=== PATIENT | female | born 1960 | race Caucasian/White ===

== ENCOUNTER → 2018-01-31 00:10 | Outpatient (CLI) | payer OTHER, SELFPAY ==
--- NOTE | 2018-01-31 16:07 | DI.REPORT_ITS ---
SYMPTOM/DIAGNOSIS: SCREENING, Z12.31 BILATERAL SCREENING MAMMOGRAM: Mammograms were interpreted according to the usual protocol including computer analysis with CAD system, tomosynthesis and C view imaging. Comparison is made with exams from 2009 through 2014. The breasts are composed of fatty density tissue, breast density Category A. There are no suspicious masses or suspicious microcalcifications. There has been no significant change. IMPRESSION: Category 1A, negative mammogram. Routine screening is recommended. SA ASSESSMENT OF FINDINGS: Negative. Category 1. Patient will receive a letter notifying them of these results. BI-RAD category A. The breasts are almost entirely fatty.
== END ==
PROVIDERS: PCP Family Medicine; Visit Provider Family Medicine
DX: Z12.31 Encounter for screening mammogram for malignant neoplasm of breast (principal)
CPT/HCPCS: 77063; 77067

== ENCOUNTER 2018-04-17 10:25 | Outpatient (CLI) | payer OTHER, SELFPAY ==
--- NOTE | 2018-04-17 10:14 | DI.RAD_ITS ---
SYMPTOM/DIAGNOSIS: SHOULDER PAIN BILATERAL RIGHT SHOULDER: The bony structures are normally mineralized. Mild to moderate degenerative changes involving the AC and glenohumeral joint are noted. There is a decrease in the normal acromiohumeral distance. SUMMARY: There are moderate degenerative changes. If clinically appropriate, an MR could be obtained to evaluate the possibility of a rotator cuff tear. LEFT SHOULDER: Mild glenohumeral and moderate AC joint DJD is demonstrated. Regions of sclerosis involving the greater tuberosity are identified. SUMMARY: Mild to moderate DJD left shoulder.
== END 2018-04-17 10:45 ==
PROVIDERS: PCP Family Medicine; Visit Provider Orthopaedic Surgery
DX: M25.511 Pain in right shoulder (principal); M25.512 Pain in left shoulder; M19.011 Primary osteoarthritis, right shoulder; M19.012 Primary osteoarthritis, left shoulder
CPT/HCPCS: 73030

== ENCOUNTER 2018-05-23 07:43 | Outpatient (CLI) | payer OTHER, SELFPAY ==
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
== END 2018-05-23 08:03 ==
PROVIDERS: PCP Family Medicine; Visit Provider Orthopaedic Surgery
DX: M19.012 Primary osteoarthritis, left shoulder (principal); M25.512 Pain in left shoulder; Z01.818 Encounter for other preprocedural examination
CPT/HCPCS: NC

== ENCOUNTER 2018-08-02 01:26 | Outpatient (CLI) | payer OTHER, SELFPAY ==
--- NOTE | 2018-08-02 14:58 | DI.MRI_ITS ---
SYMPTOM/DIAGNOSIS: AC JOINT DJD BILAT MRI RIGHT SHOULDER: Comparison is made with plain films dated 17 Apr 2018 Proton density and FS T2 axial and coronal, and T1 and FS T2 sagittal sequences were performed. There is prominent spurring at the AC joint with significant inferior projection. There is a full thickness tear with retraction of the supraspinatus tendon to the level of the glenoid. There is severe muscle atrophy, consistent with a chronic tear. There is also marked thinning of the infraspinatus tendon and severe infraspinatus muscle atrophy. The subscapularis and teres minor tendons appear intact. The upper long head of the biceps tendon is not well seen. The tendon is visible in the bicepital groove. There is some spurring at the greater and lesser tuberosities and a few small subchondral cysts. Degenerative changes are seen at the labrum. No definite focal labral tear is identified. There is a small amount of fluid in the subacromial, subdeltoid bursa and subcoracoid bursa. 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 Severe partial tear and severe muscle atrophy of the infraspinatus.
--- NOTE | 2018-08-02 14:58 | DI.MRI_ITS ---
SYMPTOM/DIAGNOSIS: AC JOINT DJD BILAT MRI LEFT SHOULDER: Comparison is made with plain films dated 17 Apr 2018 There are degenerative changes of the AC joint with inferior spurring. Some fluid is also seen within the AC joint. There is spurring at the undersurface and tip of the acromion. There is a full thickness tear of the supraspinatus tendon with retraction to the level of the acromion. There is moderate muscle atrophy, approximately 50%. The infraspinatus tendon shows some high signal distally. No definite full thickness tear is seen. There is no significant infraspinatus muscle atrophy. The subscapularis and teres minor tendons appear intact. There is thickening and some intermediate signal in the upper long head of the biceps tendon, consistent with tendinosis. There is a small joint effusion and some fluid in the subacromial subdeltoid bursa as well as subcoracoid bursa. Degenerative changes are seen at the glenoid as well as at the greater and lesser tuberosities. There are a few small subchondral cysts. IMPRESSION: Full thickness tear of the supraspinatus tendon with retraction and moderate muscle atrophy. Infraspinatus tendinosis. Upper long head of the biceps tendinosis.
== END 2018-08-02 01:46 ==
PROVIDERS: PCP Family Medicine; Visit Provider Orthopaedic Surgery
DX: M19.011 Primary osteoarthritis, right shoulder (principal); M75.81 Other shoulder lesions, right shoulder; M62.511 Muscle wasting and atrophy, not elsewhere classified, right shoulder; M19.012 Primary osteoarthritis, left shoulder; M75.82 Other shoulder lesions, left shoulder; M62.512 Muscle wasting and atrophy, not elsewhere classified, left shoulder
CPT/HCPCS: 73221

== ENCOUNTER 2018-08-15 12:08 | Day surgery (SDC) | payer OTHER, SELFPAY ==
[2018-08-15 12:35] VITALS: BP 142/72; PULSE 71; RESP 16; TEMP 36.5; O2SAT 97
[2018-08-15] MEDS: Lactated Ringers 1,000 ML 80 ML IV ×2 (12:45→14:45)
--- NOTE | 2018-08-15 14:26 | W.PM.DSUDISC ---
Discharge Plan Disposition Patient Disposition: HOME Condition: Good Discharge Details Reason For Visit: bilat djd a-c joint/Excision distal clavicle L Attending Provider: Teo Casillas Primary Care Provider: Nan Simmons Home Meds and New Rx's Prescriptions: New ibuprofen 800 mg tablet 800 mg PO TID Qty: 30 RF: 0 hydrocodone-acetaminophen 5-325 mg tablet 1 tab PO Q6H PRN (Reason: pain) Qty: 20 RF: 0 Continued escitalopram oxalate 20 mg tablet 20 mg PO DAILY Qty: 90 RF: 11 Fiber Choice (inulin-sorbitol) 1.5 GM tablet,chewable 3 tab PO DAILY PRNRF: 0 ascorbic acid (vitamin C) [Vitamin C] 1,000 MG tablet extended release 1,000 mg PO DAILY RF: 0 calcium carbonate [Calcium 500] 500 MG tablet 500 mg PO DAILY RF: 0 Vitamin D3 4,000 UNIT capsule 4,000 unit PO DAILY RF: 0 loratadine 10 MG tablet 10 mg PO DAILY Qty: 90 RF: 12 Turmeric Root Extract [Turmeric] 538 MG capsule 538 mg PO DAILY RF: 0 riboflavin (vitamin B2) [Vitamin B-2] 100 MG tablet 200 mg PO DAILY RF: 0 Discharge Instructions Additional Instructions: Sling for comfort. May take L arm out of sling as often and for as long as your discomfort allows. Apply cryocuff to L shoulder continuously overnite tonite. Tomorrow start to use 4 times/day for 1 hour each time. Discontinue sling as soon as your pain allows. Use L arm within limits of pain. May remove dressings, shower and get incision wet in 48 hours. Leave incision uncovered when it is dry and sealed. Follow up with in 7-10 days. Referrals: Teo Casillas MD [ [facility] STAFF PHYSICIAN] - (f/u 7-10 days.) Equipment/Supplies: Sling Activity:: Activity as Tolerated Remove Dressings/Wound Care:: 48 hours Shower/Bathe:: 48 hours Diet:: As Tolerated Discharge Orders Discharge Orders: Discharge Order (Routine); Ordered 08/15/18 Ordered By: Teo Casillas DS: Diagnosis Discharge Diagnosis (1) Acromioclavicular joint arthritis: Status: Chronic
[2018-08-15 14:58] VITALS: BP 126/54; PULSE 74; RESP 18; TEMP 36.3; O2SAT 93
[2018-08-15 15:03] VITALS: BP 131/59; PULSE 70; RESP 13; TEMP 36.3; O2SAT 94
[2018-08-15 15:08] VITALS: BP 123/55; PULSE 69; RESP 12; TEMP 36.3; O2SAT 94
[2018-08-15 15:23] VITALS: BP 135/63; PULSE 71; RESP 14; TEMP 36.6; O2SAT 94
[2018-08-15 15:52] VITALS: BP 130/72; PULSE 66; RESP 18; TEMP 35.9; O2SAT 95
[2018-08-15] MEDS: oxyCODONE-CR 10 MG TABCR PO (15:58)
--- NOTE | 2018-08-15 17:40 | ROE_ITS ---
DATE OF PROCEDURE: August 15, 2018 PREOPERATIVE DIAGNOSIS: DJD AC joint, left. POSTOPERATIVE DIAGNOSIS: DJC AC joint, left. PROCEDURE: Excision distal clavicle, left. SURGEON: Teo Casillas M.D. RADIOSONDE SPECIALIST: Neeraj Fine PA-C ANESTHESIA: General, Marie Carrillo CRNA INDICATIONS: This is a 58-year-old white female with bilateral shoulder pain. This pain has been pr esent for several months and interferes with activities and sleep. She has not responded to conserva tive treatment including injection and Physical Therapy. MRI scan has revealed bilateral full-thickn ess rotator cuff tears of the supraspinatus tendon. However, clinical examination shows no pain with rotator cuff resistance and good strength in her rotator cuff. She has 3+ tenderness over the AC natali int, confirming the AC joint as the source of the pain. It was felt that her pain could be alleviate d by excision of the distal clavicle to decompress the AC joint. I did not feel that there were any clinical indications for rotator cuff repair. The risks and complications of the procedure were expl ained to the patient in detail preoperatively. The plan is to excise the distal clavicle on the left and, when she is fully recovered, proceed with the same procedure on the right side if she is satisf ied. PROCEDURE: The patient was taken to the Operating Room on 08/15/18. She was placed supine on the ope rating table and a general anesthetic was administered. She was then placed in the castillo chair posi tion and the left shoulder was prepped and draped free in the usual sterile fashion. An incision mad e centered directly over the dorsum of the AC joint. The incision was about 3 inches in length. The incision was carried to the AC joint capsule. Subcutaneous veins were cauterized. A longitudinal i ncision was made on the dorsum of the AC joint capsule and the distal clavicle was subperiosteally ex posed. The distal centimeter of the clavicle was transected and excised. The resected end of the cl avicle was packed with bone wax. I then infiltrated the subacromial space and the periosteum and capsule of the AC joint with 0.5% Mar karlo with epinephrine solution. Absolute hemostasis was obtained with electrocautery. The AC joint capsule and periosteum over the distal clavicle were repaired with interrupted [id number] sutur es of #1 Vicryl suture material. The subcu was approximated with a few interrupted #2-0 Vicryl sutur es and a running subcuticular suture was used to approximate the skin edges, supplemented with Steri- Strips. Sterile dressings were applied and the left arm was placed in a sling. The patient's anesth esia was reversed without complication. Blood loss was 20 cc. The patient was discharged to the Rec overy Room in good condition. The patient was discharged home from the Day Surgery Unit when fully recovered from her general anest hesia. She was given instructions to use the sling for comfort. She may leave her left arm out of t he sling as often and for as long as discomfort allows. She may remove her dressings, shower and get her incision wet after 48 hours. She can leave the incision uncovered when it is dry and sealed. S he is to use a Cryo/Cuff to the left shoulder continuously overnight tonight and then tomorrow start to use the Cryo/Cuff 4 times a day for an hour each time. She can wean herself out of the sling as s oon as discomfort allows. She may then use her left arm as much as discomfort allows. She is given a prescription for inflammation of ibuprofen 800 mg p.o. t.i.d. for 10 days and a prescription for pa in of hydrocodone/APAP 5 mg/325 mg, 1 tablet q.6h. p.r.n. for breakthrough pain. She will follow up in Dr. Casillas's office in 7 to 10 days.
== END 2018-08-15 16:25 | disposition home or self-care (01) ==
PROVIDERS: PCP Family Medicine; Visit Provider Orthopaedic Surgery
PROC: (CPT 23120; principal; 2018-08-15 13:45)
DX: M19.012 Primary osteoarthritis, left shoulder (principal)
CPT/HCPCS: 23120; J0690; J1100; J1885; J2250; J2405; J3010; L3650

== ENCOUNTER 2018-09-10 08:46 | Day surgery (SDC) | payer OTHER, SELFPAY ==
[2018-09-10 09:18] VITALS: BP 146/76; PULSE 88; RESP 16; TEMP 36.6; O2SAT 94
[2018-09-10] MEDS: Lactated Ringers 1,000 ML 80 ML IV ×2 (09:30→11:03)
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
--- NOTE | 2018-09-10 13:21 | PDOC.DSDIS_ITS ---
Discharge Plan Disposition Patient Disposition: HOME Condition: Good Discharge Details Reason For Visit: excision distal clavicle, R rotator cuff repair. Attending Provider: Teo Casillas Primary Care Provider: Nan Simmons Home Meds and New Rx's Prescriptions: Continued escitalopram oxalate 20 mg tablet 20 mg PO DAILY Qty: 90 RF: 11 Fiber Choice (inulin-sorbitol) 1.5 GM tablet,chewable 3 tab PO DAILY PRNRF: 0 ascorbic acid (vitamin C) [Vitamin C] 1,000 MG tablet extended release 1,000 mg PO DAILY RF: 0 calcium carbonate [Calcium 500] 500 MG tablet 500 mg PO DAILY RF: 0 Vitamin D3 4,000 UNIT capsule 4,000 unit PO DAILY RF: 0 loratadine 10 MG tablet 10 mg PO DAILY Qty: 90 RF: 12 Turmeric Root Extract [Turmeric] 538 MG capsule 538 mg PO DAILY RF: 0 riboflavin (vitamin B2) [Vitamin B-2] 100 MG tablet 200 mg PO DAILY RF: 0 hydrocodone-acetaminophen 5-325 mg tablet 1 tab PO Q6H PRN (Reason: pain) Qty: 20 RF: 0 ibuprofen 800 mg tablet 800 mg PO TID PRNRF: 0 Discharge Instructions Additional Instructions: Sling for comfort. May take R arm out of sling as much as your discomfort allows. Apply cryocuff to R shoulder continuously overnite tonite. Tomorrow, start to use cryocuff 4 times/day for 1 hour each time. May remove dressings, shower, and get incision wet after 72 hours. Leave incision uncovered when it is dry and sealed. Take ibuprofen 800 mg 3 times/day for 10 days. USE HYDROCODONE for breakthru pain, if needed. Follow up with in 2 weeks. Referrals: Teo Casillas MD [ [facility] STAFF PHYSICIAN] - (f/u in 2 weeks.) Equipment/Supplies: Sling Activity:: Activity as Tolerated Remove Dressings/Wound Care:: 72 hours Shower/Bathe:: 72 hours Diet:: As Tolerated Discharge Orders Discharge Orders: Discharge Order (Routine); Ordered 09/10/18 Ordered By: Teo Casillas DS: Diagnosis Discharge Diagnosis (1) Acromioclavicular joint arthritis: Status: Chronic (2) Torn rotator cuff: Status: Acute
[2018-09-10 13:40] VITALS: BP 111/56; PULSE 64; RESP 15; TEMP 36.8; O2SAT 96
[2018-09-10 13:45] VITALS: BP 110/51; PULSE 66; RESP 15; TEMP 36.8; O2SAT 96
[2018-09-10 13:50] VITALS: BP 111/46; PULSE 64; RESP 14; TEMP 36.8; O2SAT 95
[2018-09-10 14:05] VITALS: BP 110/41; PULSE 66; RESP 16; TEMP 36.8; O2SAT 95
[2018-09-10] MEDS: oxyCODONE-CR 10 MG TABCR PO (14:44)
[2018-09-10 14:46] VITALS: BP 123/58; PULSE 67; RESP 16; TEMP 36.2; O2SAT 93
--- NOTE | 2018-09-12 18:40 | ROE_ITS ---
DATE OF PROCEDURE: September 10, 2018 PREOPERATIVE DIAGNOSIS: #1. DJD AC joint, right #2. Torn rotator cuff, right. POSTOPERATIVE DIAGNOSIS: Same. PROCEDURE: #1. Excision of distal clavicle, right. #2. Repair of full-thickness tear of rotator cuff, right. SURGEON: Teo Casillas M.D. [employer]ING MACHINE OPERATOR: Alma Garcia PA-C ANESTHESIA: General. INDICATIONS: This is a 58-year-old white female with known bilateral rotator cuff tears by MRI. She has been experiencing severe pain arising from both AC joints. Even though she has a rotator cuff t ear on MRI, clinically her shoulder exam did not show significant disability because of the rotator c uff tear. On the left side, she has recently undergone excision of her distal clavicle without a rot ator cuff repair. She has done well with this and is functioning well enough, with good pain relief, that she wants to have the same procedure on the right side. The risks and complications of the pro cedure were explained to the patient in detail preoperatively. PROCEDURE: The patient was taken to the Operating Room on 09/10/18. She was given a general anesthet ic and was placed in the castillo chair position. The right shoulder was prepped and draped free in th e usual sterile fashion. An incision was made on the superior aspect of the right shoulder centered over the AC joint. The incision was about 3 inches in length. The incision was carried down to the AC joint capsule. The AC joint capsule was longitudinally incised, the distal clavicle was subperios teally exposed, and the distal centimeter of the clavicle was transected and removed. There were eduardo e osteophytes on the undersurface of the acromion that were noted on preoperative x-rays. As I excis ed these osteophytes, I realized that I was looking at the bare humeral head. This was because she h ad a full-thickness tear of her supraspinatus that had retracted about 2 cm medially. Because of the amount of retraction and the tear that was present I felt that this was an opportunity to attempt to repair the rotator cuff at this time, despite the fact that she was only having mild symptoms from h er rotator cuff. I think that the literature clearly shows that this tear could be expected to progr ess. I was hopeful I could stop the progression of the tear and alleviate her pain. I then proceeded to detach the anterior deltoid and incise the deltoid muscle for a distance of about 2 cm lateral to the tip of the acromion. This provided enough exposure to visualize the tear. The biceps tendon was intact. Traction sutures were placed on #1 Vicryl suture material in the leading e dge of the rotator cuff and then a Demarco elevator was used to free up the rotator cuff and mobilize it laterally. I prepared the original footprint of the supraspinatus for cementing with a rongeur and a rasp to get fresh bleeding bone. I then did a two-row repair. The medial row was two suture ancho rs of 5.0 diameter. These were then passed through the rotator cuff tendon in a horizontal mattress fashion and tied, securing the rotator cuff to the bone of the proximal humerus. Then using the Vers prince anchor, I took the uncut ends of the sutures comprising the medial row and, using the Versalok a nchors, provided a second row of repair more laterally. I was able to bring the arm to the side foll owing the repair without pulling out the sutures. The wound margins were then infiltrated with 0.5% Marcaine with epinephrine solution. The resected end of the clavicle was packed with bone wax to altman it bleeding. Three drill holes were placed in the anterior acromion and then sutures of #2 FiberWire were passed t hrough the full thickness of deltoid muscle anteriorly and through the drill holes in a gistec-aq-wyc ht fashion. These sutures were tied, securing the anterior deltoid to the acromion. The AC joint ca psule and periosteum of the distal clavicle were approximated with interrupted aqbmgf-qb-vxtim suture s of #1 Vicryl suture material. The lateral deltoid muscle split was approximated with a couple of i nterrupted #1 Vicryl sutures. I then oversewed the more superficial deltoid fascia to the periosteum over the acromion with interrupted cupclk-ay-aigkw sutures of #1 Vicryl suture material to reinforce the repair to bone. The subcu was approximated with interrupted #2-0 Vicryl sutures and the skin ed ges were approximated with a running subcuticular suture of #4-0 Vicryl supplemented with Steri-Strip s. The wound was dressed with Xeroform gauze, sterile gauze 4x4s, half an ABD pad, and taped with fo am elastic tape. The right arm was placed in a sling. Estimated blood loss was <100 cc. The patien t tolerated the procedure well. Her anesthesia was reversed without complication. She was discharge d to the Recovery Room in good condition. The patient was later discharged home from the Day Surgery Unit when fully recovered from her general anesthesia. She was given instructions to use the sling for comfort. She may take her arm out of h er sling to perform movements only within the limits of pain. She may remove her dressings, shower a nd get her incision wet after 72 hours. She can leave the incision uncovered when it is dry and seal ed. She is to use a Cryo/Cuff to the right shoulder continuously overnight tonight. Tomorrow she wi ll start to use a Cryo/Cuff four times a day for an hour each time. She should follow up with Dr. Wood dobbins in two weeks. She is given a prescription for inflammation of ibuprofen 800 mg p.o. t.i.d. for 10 days and a prescription for pain of hydrocodone/APAP 5 mg/325 mg, 1 tablet every 6 hours.
== END 2018-09-10 15:23 | disposition home or self-care (01) ==
PROVIDERS: PCP Family Medicine; Visit Provider Orthopaedic Surgery
PROC: (CPT 23120; principal; 2018-09-10 10:00)
PROC: (CPT 23412; 2018-09-10 10:00)
DX: M19.011 Primary osteoarthritis, right shoulder (principal); M75.121 Complete rotator cuff tear or rupture of right shoulder, not specified as traumatic
CPT/HCPCS: 23412; 23120; C1713; NC; J0690; J1100; J1885; J2370; J2405

== ENCOUNTER 2019-01-16 13:53 | Outpatient (CLI) | payer OTHER, SELFPAY ==
--- NOTE | 2019-01-16 11:15 | DI.RAD_ITS ---
SYMPTOMS/DIAGNOSIS: LT KNEE PAIN LEFT KNEE: Weight bearing AP and lateral images are provided. The bony structures are normally mineralized. The joint spaces intact. There is no evidence of a joint effusion.
== END 2019-01-16 14:13 ==
PROVIDERS: PCP Family Medicine; Visit Provider Physician Assistant
DX: M25.562 Pain in left knee (principal)
CPT/HCPCS: 73560

== ENCOUNTER 2019-02-22 01:04 | Outpatient (CLI) | payer OTHER, SELFPAY ==
--- NOTE | 2019-02-22 10:35 | DI.MRI_ITS ---
SYMPTOM/DIAGNOSIS: RESTRICTED RANGE OF MOTION, FOLLOWING ROTATOR CUFF SURGERY, Z98.890 RIGHT SHOULDER MRI: Routine noncontrast examination was performed. Comparison is made with 08/02/18. There is artifact in the shoulder from prior rotator cuff repair surgery. The biceps tendon appears to be retracted to the level of the glenohumeral joint. The infraspinatus tendon also appears to be retracted to the level of the glenohumeral joint. The teres minor and subscapularis tendons appear intact. There is marked fatty atrophy involving the supraspinatus and infraspinatus muscles. The teres minor and subscapularis muscles are well maintained with normal signal and size. There is superior subluxation of the humeral head with marked narrowing of the acromiohumeral interval. No definite evidence to suggest an occult fracture or avascular necrosis is seen. In the bone, there is artifact from the orthopedic hardware obscuring portions of the acromioclavicular joint and the lateral humeral head. The articular cartilage at the glenohumeral joint appears well maintained. No abnormal focal soft tissue mass or fluid collection is appreciated. IMPRESSION: Findings suspicious for tears involving the infraspinatus and supraspinatus tendons. Marked fatty atrophy involving the infraspinatus and supraspinatus tendon. Limited examination due to extensive artifact from the patient's prior surgery.
== END 2019-02-22 01:24 ==
PROVIDERS: PCP Family Medicine; Visit Provider Orthopaedic Surgery
DX: Z98.890 Other specified postprocedural states (principal); M25.811 Other specified joint disorders, right shoulder; M75.101 Unspecified rotator cuff tear or rupture of right shoulder, not specified as traumatic; M62.511 Muscle wasting and atrophy, not elsewhere classified, right shoulder
CPT/HCPCS: 73221

== ENCOUNTER 2019-03-11 00:28 | Outpatient (CLI) | payer OTHER, SELFPAY ==
--- NOTE | 2019-03-11 15:00 | DI.MAMMO_ITS ---
SYMPTOM/DIAGNOSIS: SCREENING Z12.31 MAMMOGRAM: 03/11 Mammograms were interpreted according to the usual protocol including computer analysis with CAD system, tomosynthesis and C view imaging. The breasts are of moderate density with fairly symmetrical distribution of fibroglandular tissue. No dominant mass or clumped microcalcifications identified in either breast. The current examination is compared with previous examinations including January 2018 and there has been no gross interval change in appearance in comparison with the previous studies. CONCLUSION: No specific evidence of malignancy at this time. Routine screening examinations are suggested at yearly intervals in this age group according to the ACS/ACR guidelines. Category 1, breast density category B. MQSA ASSESSMENT OF FINDINGS: Negative. Category 1. Patient will receive a letter notifying them of these results. BI-RADS category B. There are scattered areas of fibroglandular density.
== END 2019-03-11 00:48 ==
PROVIDERS: PCP Family Medicine; Visit Provider Family Medicine
DX: Z12.31 Encounter for screening mammogram for malignant neoplasm of breast (principal)
CPT/HCPCS: 77063; 77067

== ENCOUNTER 2019-03-28 01:07 | Outpatient (CLI) | payer OTHER, SELFPAY ==
--- NOTE | 2019-03-28 13:44 | DI.DEXA_ITS ---
EXAM: XR DEXA BONE DENSITY W/WO SHANIA INDICATION: Screening for osteoporosis Z13.820. COMPARISON: Prior examination of July 2007 TECHNIQUE: 2D digital imaging was performed. FINDINGS: DEXA scan was performed according to the usual protocol. Findings for lumbar spine scanning are a T- score of -1.0. Prior examination of July 2007 showed lumbar T-score of -0.9. Findings for left h ip scanning are a T-score of 0.1 with left femoral neck T-score of -1.9. Previous examination of Jul showed left hip T-score of 1.3. Left forearm scanning shows T-score of -0.8. Lateral vertebral scanogram shows no evidence of vertebral compression fracture. IMPRESSION: Findings consistent with osteopenia according to the WHO criteria
== END 2019-03-28 01:27 ==
PROVIDERS: PCP Family Medicine; Visit Provider Family Medicine
DX: Z13.820 Encounter for screening for osteoporosis (principal); M85.88 Other specified disorders of bone density and structure, other site
CPT/HCPCS: 77080

== ENCOUNTER 2019-11-18 12:13 | Outpatient (CLI) | payer OTHER, SELFPAY ==
[2019-11-19 17:52] LABS: COVID-19 RT-PCR Result NEGATIVE (Negative)
== END 2019-11-18 12:33 ==
PROVIDERS: PCP Family Medicine; Visit Provider Family Medicine
DX: R06.02 Shortness of breath (principal); R68.83 Chills (without fever)
CPT/HCPCS: U0003

== ENCOUNTER 2020-01-02 02:27 | Outpatient (CLI) | payer OTHER, SELFPAY ==
[2020-01-02 13:03] LABS: HCT 46.4 % (36.0-46.0); HGB 15.3 g/dL (12.0-15.5); Mean Corpuscular Hemoglobin 30.6 pg (27.0-33.0); Mean Corpuscular Volume 92.8 fL (80-95); Mean Platelet Volume 10.9 fL (8.0-11.0); Platelet Count 349 x1000/uL (130-400); RBC Distribution Width 13.3 % (11.7-14.6); White Blood Cell Count 7.34 k/cumm (4.4-10.8)
[2020-01-02 13:09] LABS: Hemoglobin A1C 5.7 % (3.8-5.6)
[2020-01-02 13:52] LABS: ALT 19 U/L (14-59); AST 14 U/L (15-37); Albumin 3.8 g/dL (3.4-5.0); Alkaline Phosphatase 106 U/L (46-116); Anion Gap 9.9 mmol/L (3-11); BUN 21 mg/dL (7-18); Bilirubin, Total 0.6 mg/dL (0.2-1.0); CO2 25.1 mmol/L (21.0-32.0); Calcium 9.5 mg/dL (8.5-10.1); Chloride 105 mmol/L (98-107); Estimated GFR 56.37 (mL/min/1.73m2); Glucose 106 mg/dL (74-106); Potassium 4.7 mmol/L (3.5-5.1); Sodium 140 mmol/L (136-145); TSH (W/Ref FT4) 3.25 uIU/mL (0.36-3.74); Total Protein 6.7 g/dL (6.4-8.2)
[2020-01-02 13:55] LABS: Iron 86 ug/dL (50-170)
== END 2020-01-02 02:47 ==
PROVIDERS: PCP Family Medicine; Visit Provider Family Medicine
DX: Z00.00 Encounter for general adult medical examination without abnormal findings (principal); Z11.9 Encounter for screening for infectious and parasitic diseases, unspecified; R53.83 Other fatigue
CPT/HCPCS: 36415; 80053; 85027; 83036; 83540; 84443

== ENCOUNTER 2020-01-09 00:22 | Outpatient (CLI) | payer OTHER, SELFPAY ==
--- NOTE | 2020-01-09 14:01 | DI.CTLCSR_ITS ---
EXAM: CT CHEST LUNG CANCER SCREEN CLINICAL HISTORY: The patient reportedly has a History of Smoking 30 pack years and presently smokes or has quit the past 15 years. TECHNIQUE: Imaging Protocol: Axial computed tomography images with coronal and sagittal reformatted images were created and reviewed. Low-dose screening protocol. COMPARISON: CR CHEST 2 VIEWS PA,LAT from 04/09/2013 FINDINGS: There is a right shoulder prosthesis. The heart size is normal. There are coronary artery and aorti c calcifications. The aorta is normal in diameter. There is no adenopathy, infiltrate, pleural or p ericardial effusion. There is mild paraseptal emphysema in the upper lobes. There is no bronchiecta sis or mucus plugging. No noncalcified pulmonary nodules are seen. There are degenerative changes i n the thoracic spine. No lytic or blastic lesions are seen. IMPRESSION: No evidence of mass or pulmonary nodules. Lung RADS Cat 1 - Negative: No nodules and definitely benign nodules Lung-RADS 1.0 CATEGORIES: Category 0 - Prior chest CT exam(s) being located for comparison. Category 1 - Annual screening in 12 months. No nodules or definitely benign nodules. Category 2 - Annual screening in 12 months. Benign appearance. Nodules with low likelihood of becomin g active cancer. Category 3 - 6-month follow-up. Probably benign. Short-term follow-up suggested. Nodules with low lik elihood of becoming active cancer. Category 4A - 3-month follow-up and CT/PET if >8 mm in size. Suspicious finding. Findings which requi re additional testing. Category 4B - Findings which require additional testing and tissue sampling. Suspicious finding. C Added to Any of the Above - History of prior lung cancer screening. S Added to Any of the Above - Significant unexpected other finding. RADIATION DOSE DELIVERED: 81.98mGy.cm Total DLP DATA REPOSITORY: All CT scans at this facility are submitted to the National Radiology Data Registry (NRDR) Dose Index Registry (DIR) with the [employer] (A[employer]). RADIATION OPTIMIZATION: All CT scans at this facility use at least one of these dose optimization te chniques: automated exposure control; mA and/or kV adjustment per patient size (includes targeted exa ms where dose is matched to clinical indication); or iterative reconstruction.
== END 2020-01-09 00:42 ==
PROVIDERS: PCP Family Medicine; Visit Provider Family Medicine
DX: Z12.2 Encounter for screening for malignant neoplasm of respiratory organs (principal); F17.210 Nicotine dependence, cigarettes, uncomplicated; J43.8 Other emphysema
CPT/HCPCS: G0297

== ENCOUNTER 2020-08-19 19:05 | Outpatient (REF) | payer OTHER, SELFPAY ==
[2020-08-20 15:04] LABS: COVID-19 RT-PCR UVMMC Result Negative (Negative)
== END 2020-08-19 19:06 | disposition home or self-care (01) ==
LOC: LBN 19:05
PROVIDERS: PCP Family Medicine; Visit Provider Nurse Practitioner Family
DX: Z20.828 Contact with and (suspected) exposure to other viral communicable diseases (principal)
CPT/HCPCS: U0003

== ENCOUNTER 2020-08-23 16:25 | Emergency (ER) | payer OTHER, SELFPAY ==
[2020-08-23] VITALS (39 sets, daily range): BP systolic 124–221; BP diastolic 70–164; PULSE 72–161; RESP 2–35; TEMP 36.4–36.6; O2SAT 68–100
--- NOTE | 2020-08-23 16:15 | RT.EKG_ITS ---
APPROVED REPORT Exam: Resting ECG Patient Location: E HR:128 bpm ECG Measurements Heart Rate 128 AXIS MT 95 P 127 QRSd 182 QRS 152 QT 388 T 4 QTc 570 Conclusion Sinus tachycardia...rate> 99 Ventricular premature complex...V complex w/ short R-R interval ST elevation secondary to LVH...Multiple VCG criteria. New LBBB, possible STEMI. No compared to previous 2018. I have reviewed and interpreted ECG and agree with software generated interpretation.
--- NOTE | 2020-08-23 16:30 | DI.RAD_ITS ---
EXAM: XR PORTABLE CHEST AP CLINICAL HISTORY: chest tightness, sob, r/o acute disease. TECHNIQUE: 2D digital imaging was performed. COMPARISON: CR CHEST 2 VIEWS PA,LAT from 11/20/2017 FINDINGS: Heart size is normal. The mediastinum is not widened. There is interstitial and patchy infiltrate in both lung talley, slightly more prominent on the right side right lower lobe. No pleural effusions. Reversed right shoulder prosthesis is noted. There is also been decompression AC joint surgery bilat erally. IMPRESSION: Interstitial and partially confluent infiltrates both lungs. Both infectious etiology and pulmonary edema are considerations. There are no obvious pleural effusions. Sign rib DATA REPOSITORY: RADIATION DOSE DELIVERED:
[2020-08-23] MEDS: Albuterol/Ipratropium 3 ML UPD VIAL (16:33)
[2020-08-23] MEDS: Normal Saline 250 ML IV (16:34)
[2020-08-23 16:38] LABS: Abs Immature Grans 0.08 10^3/uL (0.0-0.06); HCT 49.1 % (36.0-46.0); HGB 15.3 g/dL (11.2-15.7); MCH 30.5 pg (27.0-33.0); MCHC 31.2 % (32.0-36.0); Nucleated RBC 0 %; Platelet Count 371 10^3/uL (130-400); RBC 5.01 10^6/uL (3.93-5.22); RDW 12.4 % (11.7-14.6); RDW-SD 44.4 fL; WBC 14.02 10^3/uL (4.4-10.8)
[2020-08-23] MEDS: LORazepam 2 MG/ML VIAL 1 MG IVP ×2 (16:43→16:55)
--- NOTE | 2020-08-23 16:45 | W.ED.GENAD ---
Discharge Plan Disposition Patient Disposition: [facility] Condition: Critical Discharge Details Clinical Impression: STEMI (ST elevation myocardial infarction), COPD with acute exacerbation, Acute CHF (congestive heart failure) Primary Care Provider: Nan Simmons ED Provider: Cierra Langley Home Meds and New Rx's Prescriptions: No Action bupropion HCl 300 mg tablet extended release 24 hr 300 mg PO QAM Qty: 90 RF: 4 fluticasone propionate 50 mcg/actuation spray,suspension 2 spray DEWAYNE DAILY Qty: 47.4 RF: 5 omeprazole magnesium [Prilosec OTC] 20 mg tablet,delayed release (DR/EC) 20 mg PO DAILY Qty: 30 RF: 0 Fiber Choice (inulin-sorbitol) 1.5 GM tablet,chewable 3 tab PO DAILY PRNRF: 0 Vitamin C 1,000 MG tablet extended release 1,000 mg PO DAILY RF: 0 calcium carbonate [Calcium 500] 500 MG tablet 500 mg PO DAILY RF: 0 Vitamin D3 4,000 UNIT capsule 4,000 unit PO DAILY RF: 0 loratadine 10 MG tablet 10 mg PO DAILY Qty: 90 RF: 12 Turmeric Root Extract [Turmeric] 538 MG capsule 538 mg PO DAILY RF: 0 riboflavin (vitamin B2) [Vitamin B-2] 100 MG tablet 200 mg PO DAILY RF: 0 hydrochlorothiazide 12.5 mg tablet 12.5 mg PO QAM Qty: 90 RF: 4 ibuprofen 800 mg tablet 800 mg PO TID PRNRF: 0 Medical Decision Making 1626 -- 60-year-old female with a history of obesity, GERD, hyperlipidemia, COPD, tobacco smoker presents for chest tightness that started 2 hours ago while making a sandwich. EMS called the ED with a STEMI alert with potential anterior ST elevation on EKG. Heart rate 140s, unable to obtain a blood pressure at 40/20s per EMS. They had difficulty obtaining a history from patient. Upon arrival to ED, patient moaning and restless, unable to answer questions. Blood pressure hypertensive at 155/124. Pulse 130s to 150s. Respirations 20-30s. Temp 97 5. O2 sat 80s to 90s on room air. She has scattered wheezing and coarse breath sounds throughout. Rate 130s and rhythm sinus on the monitor. EKG noted a rate of 128, sinus with ST elevation in new left bundle branch block. EKG pushed stat to [facility] cardiology for possible STEMI. Presentation possibly more consistent with an acute COPD versus CHF exacerbation. Also consider STEMI. Patient given 4 baby aspirin in route. Will give 300 mg Plavix p.o., heparin bolus and drip, nitro drip. We will also give duo nebs and Solu-Medrol IV and Ativan to help patient relax. Case discussed with [facility] cardiology who does not call STEMI at this time. Agrees with plan for STEMI treatment. Accepts patient for transfer to the [facility]. Accepting physician Dr. Clay. 1700 -- Patient still remaining restless. A dose of morphine given and she has been able to tolerate BiPAP. Oxygen saturation 100%. Heart rate 130s. 1730 --patient tolerating BiPAP well. At the same time another critical patient into the ED requiring intubation. Labs reviewed. White blood cell count 14. pH 7.1. PCO2 60s. Result in computer pending. Troponin negative. Portable chest x-ray notes findings possibly consistent with pulmonary edema. Will give 40 mg Lasix IV. 1745 --patient tolerating BiPAP well after morphine. No local critical care medic available. Patient to go by [facility]. Chest x-ray noted findings consistent with possible multifocal pneumonia versus pulmonary edema. There was no report of fever cough or recent travel. We will hold on antibiotics at this time. 1830 --patient doing well on BiPAP. She appears much more comfortable and relaxed. Heart rate 110s. [facility] here to transfer patient. Medical Records Medical records reviewed: Yes I reviewed the patient's medical records. Imaging Data Radiologic Study: Radiologist's impression: XR Chest, 1 View Exam date and time: 08/23/2020 4:34 PM Age: 60 years old Clinical indication: Chest pain TECHNIQUE: Imaging protocol: XR of the chest Views: 1 view. COMPARISON: CT CHEST LUNG CANCER SCREEN 01/09/2020 1:57 PM FINDINGS: Lungs: Interstitium is prominent than before . There is mild perihilar congestion. There are patchy opacities in the bilateral lungs, more pronounced in the mid to lower lungs right greater than left. Pleural spaces: Unremarkable. No pleural effusion. No pneumothorax. Heart/Mediastinum: Cardiac silhouette is borderline in size. Bones/joints: There is no acute fracture. There is right shoulder arthroplasty. IMPRESSION: Patchy opacities in the bilateral lower lungs, right greater than left might reflect multifocal pneumonia. Prominent interstitium could be due to pulmonary edema or infiltrates. Lab Data Lab results reviewed: Yes I reviewed the patient's lab results. Labs: Laboratory Tests Range/Units 08/23/20 08/23/20 08/23/20 16:35 16:35 16:35 WBC (4.4-10.8) 10^3/uL 14.02 H RBC (3.93-5.22) 10^6/uL 5.01 Hgb (11.2-15.7) g/dL 15.3 Hct (36.0-46.0) % 49.1 H MCV (80-95) fL 98.0 H MCH (27.0-33.0) pg 30.5 MCHC (32.0-36.0) % 31.2 L RDW (11.7-14.6) % 12.4 Plt Count (130-400) 10^3/uL 371 MPV (8.0-11.0) fL 11.0 Immature Gran % 0.0 Neutrophils % 48.0 Lymphocytes % 36.0 Atypical Lymphs % 5 Monocytes % 7.0 Eosinophils % 4.0 Basophils % 0.0 Nucleated RBC % % 0 Absolute Neutrophils (1.2-6.7) 10^3/uL 6.73 H Absolute Lymphocytes (1.2-3.4) 10^3/uL 5.75 H Absolute Monocytes (0.1-0.8) 10^3/uL 0.98 H Absolute Eosinophils (0.0-0.7) 10^3/uL 0.56 Absolute Basophils (0.0-0.2) 10^3/uL 0.00 RBC Morphology Normal PT (9.3-11.0) sec 10.1 INR (0.9-1.1) 1.0 APTT (21.0-27.5) sec 24.2 Sodium (136-145) mmol/L 139 Potassium (3.5-5.1) mmol/L 4.1 Chloride (98-107) mmol/L 100 Carbon Dioxide (21.0-32.0) mmol/L 22.6 Anion Gap (3-11) mmol/L 16.4 H BUN (7-18) mg/dL 23 H Creatinine (0.55-1.02) mg/dL 1.7 H Estimated GFR/1.73 m2 (mL/min/1.73m2) 30.45 Glucose (74-106) mg/dL 332 H Calcium (8.5-10.1) mg/dL 9.4 Magnesium (1.8-2.4) mg/dL 2.8 H Total Bilirubin (0.2-1.0) mg/dL 0.5 AST (15-37) U/L 15 ALT (14-59) U/L 21 Alkaline Phosphatase (46-116) U/L 120 H Troponin I (<0.06) ng/mL 0.05 Total Protein (6.4-8.2) g/dL 7.9 Albumin (3.4-5.0) g/dL 3.7 ECG Data Attestation: I personally reviewed and interpreted this ECG (s) as follows: Interpretation: #1 -- Rate of 128, sinus, ST elevation secondary to LVH and anterior leads. New left bundle branch block. This is new compared to previous EKG. #2 -- Rate of 116, sinus, ST elevation secondary to LVH, LBBB. HPI General Mode of arrival: ambulatory. Date/Time Provider Initiated Documentation: 08/23/20 16:29. Limitations to Documentation: no limitations. Information obtained by: patient. HPI Narrative: Patient is a 60-year-old female with a history of GERD, hyperlipidemia, COPD, tobacco smoker presents with chest tightness that started 2 hours ago while making a sandwich at home. EMS called to report an anterior infarct noted on EKG and calling a STEMI alert. Unable to obtain a history from patient on arrival as she is moaning and unable to sit still. Related Data Home Medications Medication Instructions Recorded Confirmed Fiber Choice (inulin-sorbitol) 3 tab PO DAILY PRN tab.chew 03/15/13 08/23/20 Vitamin C 1,000 mg PO DAILY 09/29/15 08/23/20 Vitamin D3 4,000 unit PO DAILY 09/29/15 08/23/20 calcium carbonate [Calcium 500] 500 mg PO DAILY 09/29/15 08/23/20 loratadine 10 mg PO DAILY #90 tab-cap 07/12/16 08/23/20 Turmeric Root Extract [Turmeric] 538 mg PO DAILY 12/04/17 08/23/20 riboflavin (vitamin B2) [Vitamin 200 mg PO DAILY 01/30/18 08/23/20 B-2] ibuprofen 800 mg PO TID PRN 09/07/18 08/23/20 bupropion HCl 300 mg 24 hr tablet, 300 mg PO QAM #90 tab 12/31/19 08/23/20 extended release fluticasone propionate 50 2 spray DEWAYNE DAILY #47.4 gm 12/31/19 08/23/20 mcg/actuation nasal spray,suspension hydrochlorothiazide 12.5 mg tablet 12.5 mg PO QAM #90 tab 01/09/20 08/23/20 omeprazole magnesium 20 mg 20 mg PO DAILY #30 tab 08/19/20 08/23/20 tablet,delayed release Previous Rx's Medication Instructions Recorded bupropion HCl 300 mg 24 hr tablet, 300 mg PO QAM #90 tab 12/31/19 extended release fluticasone propionate 50 2 spray DEWAYNE DAILY #47.4 gm 12/31/19 mcg/actuation nasal spray,suspension hydrochlorothiazide 12.5 mg tablet 12.5 mg PO QAM #90 tab 01/09/20 omeprazole magnesium 20 mg 20 mg PO DAILY #30 tab 08/19/20 tablet,delayed release Allergies Allergy/AdvReac Type Severity Reaction Status Date / Time nickel Allergy Verified 08/23/20 17:28 zinc Allergy Skin Rash Verified 08/23/20 17:28 milk AdvReac Unknown Verified 08/23/20 17:28 IVORY SOAP Allergy Unknown RASH Uncoded 08/23/20 17:28 Metals Allergy Rash Uncoded 08/23/20 17:28 General Stated Complaint: Chest Pain MANOLO: 1 Review of Systems All systems reviewed & are unremarkable except as noted in HPI and below Constitutional Constitutional: Reports as per HPI, Denies chills and Denies fever(s) Eyes Eyes: Denies blurry vision ENT Ears, Nose, Mouth, and Throat: Denies dizziness, Denies sore throat and Denies throat swelling Cardiovascular Cardiovascular: Reports chest pain and Reports dyspnea Respiratory Respiratory: Denies cough and Reports dyspnea Gastrointestinal Gastrointestinal: Denies abdominal pain, Denies diarrhea and Denies vomiting Genitourinary Genitourinary: Denies hematuria and Denies dysuria Musculoskeletal Musculoskeletal: Denies back pain and Denies numbness Integumentary/Breasts Skin/Breast: Denies lesions and Denies rash Neurologic Neurologic: Denies dizziness, Denies localized weakness and Denies numbness Allergic/Immunologic Allergic/Immunologic: Denies throat swelling [facility] Medical History (Updated 08/23/20 @ 18:05 by Cierra Langley DO) Acromioclavicular joint arthritis Actinic keratosis (09/29/15) Adhesive capsulitis of right shoulder Right shoulder required shoulder manipulation Allergic rhinitis Cataract (10/13/14) Extraction of cataracts of both eyes done in 2014 Diverticulosis of colon without diverticulitis Gastroesophageal reflux disease (12/03/08) GERD Generalized 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 ALVARADO; EXCISION OF LEFT DISTAL CLAVICLE-kb SKIN EXCISION removal of birthmark Status post arthroscopy of right knee ~2008 Tonsillectomy and adenoidectomy (~1959) Family History (Updated 01/01/20 @ 16:41 by Adri Moulton) Mother Essential hypertension Heart disease PACEMAKER Hyperlipidemia Hypothyroidism Father Diabetes Essential hypertension Heart disease Hyperlipidemia Myocardial infarction Stroke Sister Depression Heart disease Hyperlipidemia Brother Diabetes Depression Heart disease Hyperlipidemia Maternal Grandfather Essential hypertension Heart disease Hyperlipidemia Paternal Grandfather Lung cancer Maternal Grandmother Essential hypertension Heart disease Hyperlipidemia Paternal Grandmother Diabetes Social History (Updated 01/01/20 @ 16:39 by Adri Moulton) Smoking/Tobacco Use Status: Current every day Tobacco Type: cigarettes Smoking packs per day: 0.5 Smoking cigarettes per day: 10.0 Years smoked: 30 Smoking pack-years: 15.00 Tobacco: How many years used: 40 Quit status: considering quitting Second Hand Exposure: Yes Smoking risk assessment performed?: Yes Alcohol Intake: current Alcohol Intake frequency: a few times a week Alcohol type: hard liquor Drug use: Never Substance use type: former substance user Date of last use: 1971 Counseling given: No Counseling provided: none Caregiver/Support person: No Household members: family Housing: house Communication Needs: None Do you need help understanding health information?: Never 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 Pets and animals: No Sexually active: No Do you think of yourself as: straight/heterosexual Current gender identity: female What is your relationship status?: never How often do you talk on the phone with friends or family?: once per week How often do you get together with friends or relatives?: decline to answer How often do you attend jain or muslim services?: decline to answer Do you belong to any clubs or organized social groups?: no Panel score (0-1 are the most socially isolated patients): 0 What type of physical activity do you participate in: walking and other Details: PT Duration: 15-30 minutes/day Frequency: 3-4 times per week Sandy/Judaism: Taoist Special sandy needs: No Seatbelt use: always Helmet use: No Drive intox or ride w/intox electric train driver: No Do you feel safe in your relationship?: Yes Exam Const General: cooperative, no acute distress and ill appearing chronically Nutritional Appearance: obese morbidly obese Orientation: alert and awake HENMT Head: normal to inspection Face and sinus: normal facial exam Mouth: other (white discharge in mouth) Eyes General: appearance normal, both eyes and all related structures EOM: EOM intact bilaterally Neck Neck: normal visual inspection and No submandibular swelling Lymphatic: no lymphadenopathy noted Chest Chest: normal inspection of the chest and no tenderness Resp Effort & Inspection: normal respiratory effort and able to speak in complete sentences Auscultation: wheezes scattered wheezes and other (coarse breath sounds throughout) Cardio Rate: tachycardic Rhythm: regular rhythm GI Inspection: normal to inspection and obesity Palpation: soft, not firm, not rigid and nontender Auscultation: normal bowel sounds Skin General skin exam: mottling (chest and back) Neuro General: patient alert, patient awake, patient oriented x3 and moves all extremities Cognition: normal cognition Speech: speech normal Motor: muscle tone normal throughout Sensory Exam: no sensory deficits noted Extrem General: normal to inspection, full ROM, capillary refill normal, no calf tenderness bilaterally and no edema Psych Appearance: grossly normal Mental Status: mental status grossly normal Speech and Movement: speech and movement normal Affect: normal affect Course Vital Signs Vital signs: Vital Signs Temperature 97.5 F L 08/23/20 16:26 Pulse 135 H 08/23/20 16:26 Respiratory Rate 22 08/23/20 16:26 Blood Pressure 155/124 H 08/23/20 16:26 Pulse Oximetry 77 L 08/23/20 16:26 Temperature 97.5 F L 08/23/20 16:26 Pulse 135 H 08/23/20 16:26 Respiratory Rate 22 08/23/20 16:26 Blood Pressure 155/124 H 08/23/20 16:26 Blood Pressure Position Sitting 08/23/20 16:26 Pulse Oximetry 77 L 08/23/20 16:26 Oxygen Delivery Method Room Air 08/23/20 16:26 Oxygen Flow Rate 0 08/23/20 16:26 Pain Level 6 08/23/20 16:26 Critical Care Time Critical Care Time Critical Care Time: Yes Total Critical Care Time: 75 Attestation: I spent 75 minutes of critical care time with this patient. This does not include time spent on separately reported billable procedures.
[2020-08-23] MEDS: methylPREDNISolone SUCC 125 MG VIAL IVP (16:53)
[2020-08-23 17:02] LABS: PTT Activated 24.2 sec (21.0-27.5); Prothrombin Time 10.1 sec (9.3-11.0)
[2020-08-23 17:05] LABS: Absolute Eosinophil Count 0.56 10^3/uL (0.0-0.7); Absolute Lymphocyte Count 5.75 10^3/uL (1.2-3.4); Absolute Monocyte Count 0.98 10^3/uL (0.1-0.8); Absolute Neutrophil Count 6.73 10^3/uL (1.2-6.7); Atypical Lymphocytes % 5; Diff Comment Manual Differential; RBC Morphology Normal
[2020-08-23 17:08] LABS: ALT 21 U/L (14-59); AST 15 U/L (15-37); Albumin 3.7 g/dL (3.4-5.0); Alkaline Phosphatase 120 U/L (46-116); Anion Gap 16.4 mmol/L (3-11); BUN 23 mg/dL (7-18); Bilirubin, Total 0.5 mg/dL (0.2-1.0); CO2 22.6 mmol/L (21.0-32.0); CREATININE 1.7 mg/dL (0.55-1.02); Calcium 9.4 mg/dL (8.5-10.1); Chloride 100 mmol/L (98-107); Estimated GFR 30.45 (mL/min/1.73m2); Glucose 332 mg/dL (74-106); Magnesium 2.8 mg/dL (1.8-2.4); Potassium 4.1 mmol/L (3.5-5.1); Sodium 139 mmol/L (136-145); Total Protein 7.9 g/dL (6.4-8.2); Troponin I 0.05 ng/mL (<0.06)
[2020-08-23] MEDS: Albuterol 2.5 MG/3 ML INH SOLN VIAL (17:15)
--- NOTE | 2020-08-23 17:26 | NUR.NOTE ---
pt has been extremely restles and pushing all forms of Fi02 away from her face, she iwas talking and grunting loudlyNursing Note:
--- NOTE | 2020-08-23 18:00 | RT.EKG_ITS ---
APPROVED REPORT Exam: Resting ECG Patient Location: E HR:116 bpm ECG Measurements Heart Rate 116 AXIS CA 47 P 240 QRSd 174 QRS -15 QT 464 T 132 QTc 643 Conclusion Sinus or ectopic atrial tachycardia...P axis (-45,135), rate> 99 Atrial premature complex...SV complex w/ short R-R interval Left bundle branch block...QRSd>120, broad/notched R ST elevation secondary to IVCD...Multiple VCG criteria I have reviewed and interpreted ECG and agree with software generated interpretation.
--- NOTE | 2020-08-23 18:01 | NUR.NOTE ---
Spoke with pt mother Velvet in parking lot. Aware pt is being transferred to [facility] via [facility]. Reports pt had respiratory testing last week, had a covid swab done prior to testing, negative, with no symptoms or exposures since.
[2020-08-23] MEDS: Ondansetron 4 MG/2 ML VIAL IVP (18:13)
[2020-08-23] MEDS: Furosemide 40 MG/4 ML VIAL IVP (18:14)
[2020-08-23] MEDS: Clopidogrel 300 MG TAB PO (18:17)
--- NOTE | 2020-08-23 18:19 | DI.VRAD_ITS ---
PROCEDURE INFORMATION: Exam: XR Chest, 1 View Exam date and time: 08/23/2020 4:34 PM Age: 60 years old Clinical indication: Chest pain TECHNIQUE: Imaging protocol: XR of the chest Views: 1 view. COMPARISON: CT CHEST LUNG CANCER SCREEN 01/09/2020 1:57 PM FINDINGS: Lungs: Interstitium is prominent than before . There is mild perihilar congestion. There are patchy opacities in the bilateral lungs, more pronounced in the mid to lower lungs right greater than left. Pleural spaces: Unremarkable. No pleural effusion. No pneumothorax. Heart/Mediastinum: Cardiac silhouette is borderline in size. Bones/joints: There is no acute fracture. There is right shoulder arthroplasty. IMPRESSION: Patchy opacities in the bilateral lower lungs, right greater than left might reflect multifocal pneumonia. Prominent interstitium could be due to pulmonary edema or infiltrates. Dictated and Authenticated by: Tong James MD. Ordering:ZHANNA Norton MD
[2020-08-23 19:00] LABS: FIO2L 8 L; Site Left Radial
[2020-08-23 19:02] LABS: BE -8 mmol/L (-2-3); HCO3 21 mmol/L (22-26); pO2 70 mmHg (80-105); sO2 89 % (95-98); tCO2 20 mmol/L (23-27)
--- NOTE | 2020-08-23 19:54 | RESPIRATORY ---
Pt came in via [facility] in respiratory distress and complaining of chest pain. Audible whz heard, pt is anxious and barely able to tolerate neb done with a face mask. Will not keep bipap mask on at all and is on 8L nc. w/sp02 @ 88, RR @ 30. ABG has critical results and has ordered meds to help pt relax and tolerate bipap. With medication bipap is on 12/11 with nebs being ran in-line, pt looks comfortable and sp02 not 98%. [facility] en route to transfer
[2020-08-24 12:18] LABS: pH 7.15 (7.35-7.45)
[2020-08-24 12:19] LABS: pCO2 60 mmHg (35-45)
== END 2020-08-23 18:40 | disposition short-term general hospital (02) ==
PROVIDERS: Emergency Provider Physician Assistant; PCP Family Medicine
DX: I21.3 ST elevation (STEMI) myocardial infarction of unspecified site (principal); J44.1 Chronic obstructive pulmonary disease with (acute) exacerbation; F17.210 Nicotine dependence, cigarettes, uncomplicated; I50.9 Heart failure, unspecified
CPT/HCPCS: 51702; 80053; 82805; 93005; 94640; 96365; 96366; 96374; 96375; 96376; 99291; 36600; 71045; 83735; 84484; 85025; 85610; 85730; 93010; J1940; J2060; J2405; J2930; J7613; J7620

== ENCOUNTER 2020-09-05 13:02 | Inpatient (IN) | payer OTHER, SELFPAY ==
[2020-09-05] VITALS (134 sets, daily range): BP systolic 91–182; BP diastolic 45–114; PULSE 50–84; RESP 10–26; TEMP 36.1–36.6; O2SAT 90–100
--- NOTE | 2020-09-05 13:00 | RT.EKG_ITS ---
APPROVED REPORT Exam: Resting ECG Patient Location: E HR:70 bpm ECG Measurements Heart Rate 70 AXIS OK 178 P 71 QRSd 114 QRS 60 QT 384 T 137 QTc 415 Conclusion Sinus rhythm. Probable LVH with secondary repol abnrm. Inv T wave I and aVL
--- NOTE | 2020-09-05 13:15 | DI.RAD_ITS ---
EXAM: XR PORTABLE CHEST AP CLINICAL HISTORY: chest pain TECHNIQUE: 2D digital imaging was performed. COMPARISON: CR,XR XR PORTABLE CHEST AP from 08/23/2020 FINDINGS: MEDIASTINUM: Normal. HEART: Normal. PULMONARY VASCULATURE: Normal. LUNGS: Clear. PLEURAL SPACE: No pleural effusion or pneumothorax. BONE:Within normal limits for the patient's age. Status post right shoulder replacement. OTHER FINDINGS:Normal. IMPRESSION: No acute pulmonary findings. DATA REPOSITORY: RADIATION DOSE DELIVERED:
--- NOTE | 2020-09-05 13:20 | W.ED.GENAD ---
Discharge Plan Disposition Patient Disposition: [facility] INPATIENT Condition: Stable Discharge Details Clinical Impression: Non-ST elevation MA (NSTEMI) Admit Date/Time: 09/05/20 15:59 Admit Provider: Jorge Euceda Attending Provider: Jorge Euceda Primary Care Provider: Nan Simmons ED Provider: Teo Alaniz Medical Decision Making 60-year-old female history of coronary artery disease. She was seen in the emergency department on August 23 where she had chest pain, fluid overload, new left bundle branch block pattern on EKG and was transferred to [facility]. She underwent stent placement to left circumflex on August 31 and was discharged home on September 01. She states she has been doing well, taking her medications as prescribed, and at 11 AM this morning developed 4 out of 10 anterior chest pressure similar to previous. Patient states she took her morning medications at approximately 11:30 AM. She notes approximately 8 pound weight gain. She arrives to the ER slightly hypertensive, speaking in full sentences, with a reassuring exam. Today's initial EKG shows a resolution of the previously noted left bundle branch block. Differential diagnosis includes angina, in-stent stenosis, acute coronary syndrome, pericarditis. Patient IV access established, screening labs obtained including troponin and BNP. She is referred for portable chest x-ray. Patient given additional 162 mg of aspirin, topical nitroglycerin paste. With this she has near complete resolution of her discomfort. Laboratories note reassuring chemistries, creatinine 1.5, troponin I 0166, BNP 7173. CBC unremarkable. Chest x-ray without acute findings. Given the patient's weight gain, known ejection fraction of approximate 25%, and elevated BNP I did elect to give her 20 mg of IV Lasix. I discussed the case with Dr. Elizabeth of [facility] cardiology. He reviewed the patient's recent admission and recommended that she be medically managed including heparin drip, gentle diuresis, consideration of outpatient diuretic. Following 40 mg of Lasix patient had approximately 1200+ cc of urine output and felt better. Repeat Troponin obtained and slightly decreased at 0.61. Per plan I discussed with Dr. Elizabeth, will consider admission to [facility] for further management. HPI General Mode of arrival: wheelchair. Date/Time Provider Initiated Documentation: 09/05/20 13:02. Limitations to Documentation: no limitations. Information obtained by: patient. History of Present Illness 60 year old F presents to the emergency department with the chief complaint of Chest pain, described as moderate and similar to prior episodes, Quality is described as dull and constant, and is localized to the chest. Patient reports no radiation. Patient started experiencing this hour(s) other things that improve symptom(s), (Nitroglycerin x3 at home) No exacerbating factors reported . Patient notes shortness of breath; denies fever/chills and syncope. Patient did receive the following treatments prior to arrival, other (81 mg aspirin, sublingual nitroglycerin x3) Related Data Home Medications Medication Instructions Recorded Confirmed Fiber Choice (inulin-sorbitol) 3 tab PO DAILY PRN tab.chew 03/15/13 09/05/20 Vitamin C 1,000 mg PO DAILY 09/29/15 09/05/20 Vitamin D3 4,000 unit PO DAILY 09/29/15 09/05/20 calcium carbonate [Calcium 500] 500 mg PO DAILY 09/29/15 09/05/20 loratadine 10 mg PO DAILY #90 tab-cap 07/12/16 09/05/20 Turmeric Root Extract [Turmeric] 538 mg PO DAILY 12/04/17 09/05/20 riboflavin (vitamin B2) [Vitamin 200 mg PO DAILY 01/30/18 09/05/20 B-2] ibuprofen 800 mg PO TID PRN 09/07/18 09/05/20 bupropion HCl 300 mg 24 hr tablet, 300 mg PO QAM #90 tab 12/31/19 09/05/20 extended release fluticasone propionate 50 2 spray DEWAYNE DAILY #47.4 gm 12/31/19 09/05/20 mcg/actuation nasal spray,suspension omeprazole magnesium 20 mg 20 mg PO DAILY #30 tab 08/19/20 09/05/20 tablet,delayed release aspirin 81 mg tablet,delayed 81 mg PO DAILY 09/03/20 09/05/20 release atorvastatin 80 mg tablet 80 mg PO DAILY 09/03/20 09/05/20 carvedilol 25 mg tablet 25 mg PO BID 09/03/20 09/05/20 clopidogrel 75 mg tablet 75 mg PO DAILY 09/03/20 09/05/20 isosorbide mononitrate 30 mg 30 mg PO DAILY 09/03/20 09/05/20 tablet,extended release 24 hr nicotine 7 mg/24 hr daily 1 patch TRANSDERMAL Q24H 09/03/20 09/05/20 transdermal patch nitroglycerin 0.4 mg sublingual 0.4 mg SUBLINGUAL Q5M PRN 09/03/20 09/05/20 tablet Previous Rx's Medication Instructions Recorded bupropion HCl 300 mg 24 hr tablet, 300 mg PO QAM #90 tab 12/31/19 extended release fluticasone propionate 50 2 spray DEWAYNE DAILY #47.4 gm 12/31/19 mcg/actuation nasal spray,suspension omeprazole magnesium 20 mg 20 mg PO DAILY #30 tab 08/19/20 tablet,delayed release Allergies Allergy/AdvReac Type Severity Reaction Status Date / Time nickel Allergy Verified 09/05/20 13:09 zinc Allergy Skin Rash Verified 09/05/20 13:09 milk AdvReac Unknown Verified 09/05/20 13:09 IVORY SOAP Allergy Unknown RASH Uncoded 09/05/20 13:09 Metals Allergy Rash Uncoded 09/05/20 13:09 General Stated Complaint: Chest Pain MANOLO: 2 Review of Systems Narrative: 6 systems reviewed and otherwise negative. Patient states she has had an 8 pound weight gain and feels her breathing is congested. [facility] Medical History (Updated 09/05/20 @ 16:28 by Teo Alaniz MD) Acromioclavicular joint arthritis Actinic keratosis (09/29/15) Adhesive capsulitis of right shoulder Right shoulder required shoulder manipulation Allergic rhinitis Cataract (10/13/14) Extraction of cataracts of both eyes done in 2014 Diverticulosis of colon without diverticulitis Gastroesophageal reflux disease (12/03/08) GERD Generalized 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 ALVARADO; EXCISION OF LEFT DISTAL CLAVICLE-kb SKIN EXCISION removal of birthmark Status post arthroscopy of right knee ~2008 Tonsillectomy and adenoidectomy (~1959) Family History Mother Essential hypertension Heart disease PACEMAKER Hyperlipidemia Hypothyroidism Father Diabetes Essential hypertension Heart disease Hyperlipidemia Myocardial infarction Stroke Sister Depression Heart disease Hyperlipidemia Brother Diabetes Depression Heart disease Hyperlipidemia Maternal Grandfather Essential hypertension Heart disease Hyperlipidemia Paternal Grandfather Lung cancer Maternal Grandmother Essential hypertension Heart disease Hyperlipidemia Paternal Grandmother Diabetes Social History (Updated 01/01/20 @ 16:39 by Adri Moulton) Smoking/Tobacco Use Status: Current every day Tobacco Type: cigarettes Smoking packs per day: 0.5 Smoking cigarettes per day: 10.0 Years smoked: 30 Smoking pack-years: 15.00 Tobacco: How many years used: 40 Quit status: considering quitting Second Hand Exposure: Yes Smoking risk assessment performed?: Yes Alcohol Intake: current Alcohol Intake frequency: a few times a week Alcohol type: hard liquor Drug use: Never Substance use type: former substance user Date of last use: 1971 Counseling given: No Counseling provided: none Caregiver/Support person: No Household members: family Housing: house Communication Needs: None Do you need help understanding health information?: Never current occupation: [employer] works in the [employer] Pets and animals: No Sexually active: No Do you think of yourself as: straight/heterosexual Current gender identity: female What is your relationship status?: never How often do you talk on the phone with friends or family?: once per week How often do you get together with friends or relatives?: decline to answer How often do you attend yazidi or latter-day services?: decline to answer Do you belong to any clubs or organized social groups?: no Panel score (0-1 are the most socially isolated patients): 0 What type of physical activity do you participate in: walking and other Details: PT Duration: 15-30 minutes/day Frequency: 3-4 times per week Sandy/Druze: Denominational Special sandy needs: No Seatbelt use: always Helmet use: No 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 Pleasant, well groomed, interactive. HEAD: Normocephalic, atraumatic ENT: Mucous membranes moist, oropharynx unremarkable, External ear exam unremarkable EYES: PERRL, EOMI NECK: Full ROM, no ANTONIO, no menigismus CHEST/RESP: Nontender, clear to auscultation bilateral, no wheeze/rhonchi/rales CARDIOVASCULAR: RRR, no murmur, rub hermelindo. 2+ Rad pulse bilateral ABDOMEN: Soft, nontender, no mass. +Bowel sounds EXT: Full ROM, trace bilateral pretibial edema, no rash Neuro: Grossly normal neurologic exam, conversant, interactive. Psych: Speech fluent, thoughts congruent, affect normal Course Vital Signs Vital signs: Vital Signs Temperature 36.6 C 09/05/20 13:05 Pulse 78 09/05/20 13:05 Respiratory Rate 20 09/05/20 13:05 Blood Pressure 178/106 H 09/05/20 13:05 Pulse Oximetry 96 09/05/20 13:05 Temperature 36.6 C 09/05/20 13:05 Temperature Source Temporal Artery Scan 09/05/20 13:05 Pulse 78 09/05/20 13:05 Respiratory Rate 20 09/05/20 13:05 Blood Pressure 178/106 H 09/05/20 13:05 Blood Pressure Position Supine 09/05/20 13:05 Pulse Oximetry 96 09/05/20 13:05 Oxygen Delivery Method Room Air 09/05/20 13:05 Oxygen Flow Rate 0 09/05/20 13:05 Pain Level 5 09/05/20 13:05
[2020-09-05] MEDS: Aspirin 81 MG CHEW 162 MG PO (13:25)
[2020-09-05] MEDS: nitroGLYcerin 2% 1 INCH/1 GM PKT TP ×2 (13:26→20:13)
[2020-09-05 13:28] LABS: Abs Immature Grans 0.02 10^3/uL (0.0-0.06); Absolute Basophil Count 0.05 10^3/uL (0.0-0.2); Absolute Eosinophil Count 0.13 10^3/uL (0.0-0.7); Absolute Lymphocyte Count 1.41 10^3/uL (1.2-3.4); Absolute Monocyte Count 0.73 10^3/uL (0.1-0.8); Absolute Neutrophil Count 5.63 10^3/uL (1.2-6.7); Basophils % 0.6; Eosinophils % 1.6; HCT 36.6 % (36.0-46.0); HGB 11.9 g/dL (11.2-15.7); Immature Grans % 0.3; Lymphocytes % 17.7; MCH 30.7 pg (27.0-33.0); MCHC 32.5 % (32.0-36.0); MCV 94.6 fL (80-95); MPV 11.2 fL (8.0-11.0); Monocytes % 9.2; Neutrophils % 70.6; Nucleated RBC 0 %; Platelet Count 272 10^3/uL (130-400); RBC 3.87 10^6/uL (3.93-5.22); RDW 12.4 % (11.7-14.6); RDW-SD 42.6 fL; WBC 7.97 10^3/uL (4.4-10.8)
[2020-09-05 13:40] LABS: PTT Activated 22.1 sec (21.0-27.5); Prothrombin Time 10.3 sec (9.3-11.0)
[2020-09-05 13:47] LABS: NT-proBNP 7173 pg/mL (<300)
[2020-09-05 13:48] LABS: ALT 38 U/L (14-59); AST 27 U/L (15-37); Albumin 3.2 g/dL (3.4-5.0); Alkaline Phosphatase 118 U/L (46-116); Anion Gap 7.5 mmol/L (3-11); BUN 18 mg/dL (7-18); Bilirubin, Total 0.5 mg/dL (0.2-1.0); CO2 30.5 mmol/L (21.0-32.0); CREATININE 1.5 mg/dL (0.55-1.02); Calcium 9.1 mg/dL (8.5-10.1); Chloride 106 mmol/L (98-107); Estimated GFR 35.19 (mL/min/1.73m2); Glucose 118 mg/dL (74-106); Magnesium 2.3 mg/dL (1.8-2.4); Potassium 4.3 mmol/L (3.5-5.1); Sodium 144 mmol/L (136-145); Total Protein 6.9 g/dL (6.4-8.2)
[2020-09-05 13:51] LABS: Troponin I 0.66 ng/mL (<0.06)
--- NOTE | 2020-09-05 13:55 | DI.VRAD_ITS ---
PROCEDURE INFORMATION: Exam: XR Chest Exam date and time: 09/05/2020 1:20 PM Age: 60 years old Clinical indication: Patient HX: Chest pain, recent cardio ecent TECHNIQUE: Imaging protocol: XR of the chest Views: 1 view. COMPARISON: CR XR PORTABLE CHEST AP 08/23/2020 5:40 PM FINDINGS: Lungs: Unremarkable. No consolidation. Pleural spaces: Unremarkable. No pleural effusion. No pneumothorax. Heart/Mediastinum: Unremarkable. No cardiomegaly. Bones/joints: Right total shoulder arthroplasty IMPRESSION: No acute process Dictated and Authenticated by: Shanthi Parikh MD. Ordering:CAITLYN Bruce MD
[2020-09-05] MEDS: Furosemide 40 MG/4 ML VIAL IVP (14:05)
--- NOTE | 2020-09-05 15:00 | RT.EKG_ITS ---
APPROVED REPORT Exam: Resting ECG Patient Location: E HR:56 bpm ECG Measurements Heart Rate 56 AXIS VT 160 P 60 QRSd 120 QRS 49 QT 434 T 119 QTc 418 Conclusion Sinus bradycardia. Probable LVH with secondary repol abnrm t wave inversion I/aVL
[2020-09-05 15:33] LABS: Troponin I 0.61 ng/mL (<0.06)
--- NOTE | 2020-09-05 16:22 | NUR.NOTE ---
[phone] Umm Null
--- NOTE | 2020-09-05 17:10 | W.PM.HP.N ---
Date of service: 09/05/20 Time of Service: 17:11 Assessment and Plan Assessment and plan (1) Acute CHF (congestive heart failure): Status: Acute Assessment and plan: Acute congestive heart failure in setting of ischemic cardiomyopathy. Of note echocardiogram from August 24, 2020 demonstrated mildly dilated left ventricle with global left ventricular systolic function that was reduced with an estimated ejection fraction 25% by Park's biplane method. That time RV size and function was normal. Patient had mild mitral regurgitation. Present time her acute congestive heart failure appears to be related to the fluid accumulation due to resuscitation for her acute kidney injury during her recent hospitalization in addition to her underlying ischemic cardiomyopathy. She never was sent home on diuretics when she left [facility] out of concern that they wanted complete recovery of her renal function before restarting her valsartan and furosemide. Present time is not clear that she has had a second acute ischemic event although she does have elevated troponins but they are less now than what they were a week ago. Nevertheless because she presented with chest tightness and dyspnea and elevated troponin she will be treated for ischemia with heparin drip for 48 hours while we diurese her and trend out her troponin levels which are already starting to decline. We will get a follow-up echocardiogram on Monday morning. I performed a [id number] ultrasound echocardiogram but feel that the images were inadequate to clarify her LV function. I did get a decent parasternal short axis at the mid cavity the papillary muscle level and overall LV function only appears to be mildly impaired with hypokinesis of the inferolateral wall consistent with her inferior infarct and left circumflex lesion. However it did not get decent apical four-chamber views. I think a formal echo would be more helpful. For her renal function remained stable overnight she should be started on low-dose valsartan and we can convert her from IV furosemide to oral diuretics. Once we are sure that her renal function is stable she should be considered for SGLT2 inhibitor. Qualifiers: Heart failure type: systolic Qualified Code(s): I50.21 - Acute systolic (congestive) heart failure (2) Non-ST elevation ID (NSTEMI): Status: Acute Assessment and plan: Continue aspirin and Plavix and heparin drip. We will keep her on heparin drip for 48 hours. (3) Ischemic cardiomyopathy: Status: Acute Assessment and plan: As above History of Present Illness History of Present Illness Chief Complaint: Dyspnea, chest pain Narrative: 60-year-old recent former smoker with a history of hypertension, hyperlipidemia, obesity, GERD who sustained ST elevation myocardial infarction August 23, 2020 when she presented with acute shortness of breath and chest pressure associated with new onset left bundle branch block. She was subsequently transferred from [facility] emergency room to [facility] after being started on heparin and given a loading dose of Plavix and aspirin and started on a nitroglycerin drip. Upon her initial presentation she had pulmonary edema and received Lasix and morphine as well. Subsequently had a prolonged stay at [facility] from August 23, 2020 through September 01, 2020. Please see the area discharge summary for details. In summary her hospitalization was punctuated by acute kidney injury after 2 cardiac catheterizations as well as nonsustained ventricular tachycardia and development of an ischemic cardiomyopathy. She initially underwent cardiac catheterization on August 24, 2020 where she was found to have 95% mid vessel disease of her left circumflex with collaterals from the right coronary artery system she had nonhemodynamically significant stenosis of her left main as well as her LAD and RCA. At that time it was decided to treat her medically however when she had ongoing chest discomfort along with an uptrending troponin levels as well as elevated creatinine her Lasix and valsartan were held and she was given hydration until her renal function recovered sufficiently that she was able to undergo repeat cardiac catheterization August 31, 2020 at which time she underwent PCI stenting of her mid segment of her left circumflex. Post cardiac catheterization her creatinine was down to 1.56 at the time of discharge and her BUN was 27. She was not sent home on valsartan nor on diuretics. Since that time she has developed increased dyspnea over the last 24 hours along with chest tightness and a feeling like she cannot get enough air. Says it feels very similar to when she had her heart attack. She also believes that she has had a 8 pound weight gain since she was discharged from [facility] although she says this is based on different scales between the scales at [facility] and her home scales yesterday. She has not been weighing herself daily since she was discharged. Evaluation emergency department included a portable chest x-ray which reportedly showed her lungs to be unremarkable with no pleural effusion and no cardiomegaly. Nevertheless her proBNP was elevated at 7100. Initial troponin I was 0.66 and has been trending downward since then to its current level of 0.54. Of note her troponin level at [facility] peaked at 1.0 and her last level was 0.79 on August 29, 2020. Serial EKGs taken the emergency department today showed sinus bradycardia rate of 56 bpm with a nonspecific interventricular conduction delay with a QRS duration 120 ms and ECG evidence of LVH with secondary repolarization changes with ST depression and T wave inversion in limb leads I and aVL as well as V4 through V6. Small Q waves are seen in the inferior leads II, III and aVF. Inferior Q waves are new since her ECG from August 23, 2020. Patient was started on nitroglycerin paste in the emergency department and given a dose of Lasix 40 mg IV push which resulted in diuresis of 1300 mL. Patient was started on a heparin drip after Dr. Alaniz consulted with the tire fabric inspector on-call at [facility] this afternoon, Dr. Dean Elizabeth. Present time the plan is to admit the patient to the intensive care unit on a heparin drip with continued medical treatment with aspirin Plavix, carvedilol, atorvastatin and nitroglycerin paste. She will continue to be diuresed with IV diuretics and once she is euvolemic we will start her on valsartan is also her renal function remained stable. We will trend out her troponin levels but as long as they continue to decline and she has no further chest discomfort I will not plan for transfer. Should she develop further chest pain with new EKG changes or rising troponin then [facility] should be consulted immediately to discuss transfer for possible early thrombosis of her coronary stent. Review of Systems All systems reviewed & are unremarkable except as noted in HPI and below Cardiovascular Cardiovascular: Reports as per HPI Respiratory Respiratory: Reports as per HPI [facility] Medical History (Updated 09/05/20 @ 19:39 by Jorge Euceda) Acromioclavicular joint arthritis Actinic keratosis (09/29/15) Adhesive capsulitis of right shoulder Right shoulder required shoulder manipulation Allergic rhinitis Cataract (10/13/14) Extraction of cataracts of both eyes done in 2014 Diverticulosis of colon without diverticulitis Gastroesophageal reflux disease (12/03/08) GERD Generalized osteoarthrosis 11/09 XRAY: DJD LEFT SHOULDER Hyperlipidemia Ischemic cardiomyopathy (08/23/20) Post concussion syndrome (01/22/18) Torn rotator cuff Surgical History (Updated 09/05/20 @ 19:39 by Jorge Euceda) Abdominal hysterectomy (~08/2009) Extraction of cataract 10/30/14; RIGHT ~2014; Left History of arthroscopy of knee History of cataract removal with insertion of prosthetic lens S/P shoulder surgery (~08/15/18) 08/15/18; DR. ALVARADO; EXCISION OF LEFT DISTAL CLAVICLE-kb SKIN EXCISION removal of birthmark Status post abdominal hysterectomy Status post arthroscopy of right knee ~2008 Status post right rotator cuff repair (09/10/18) Full thickness RTC tear repair and distal clavicle excision Dr. Alvarado Status post tonsillectomy and adenoidectomy Tonsillectomy and adenoidectomy (~1959) Family History Mother Essential hypertension Heart disease PACEMAKER Hyperlipidemia Hypothyroidism Father Diabetes Essential hypertension Heart disease Hyperlipidemia Myocardial infarction Stroke Sister Depression Heart disease Hyperlipidemia Brother Diabetes Depression Heart disease Hyperlipidemia Maternal Grandfather Essential hypertension Heart disease Hyperlipidemia Paternal Grandfather Lung cancer Maternal Grandmother Essential hypertension Heart disease Hyperlipidemia Paternal Grandmother Diabetes Social History Smoking/Tobacco Use Status: Current every day Tobacco Type: cigarettes Smoking packs per day: 0.5 Smoking cigarettes per day: 10.0 Years smoked: 30 Smoking pack-years: 15.00 Tobacco: How many years used: 40 Quit status: considering quitting Second Hand Exposure: Yes Smoking risk assessment performed?: Yes Alcohol Intake: current Alcohol Intake frequency: a few times a week Alcohol type: hard liquor Drug use: Never Substance use type: former substance user Date of last use: 1971 Counseling given: No Counseling provided: none Caregiver/Support person: No Household members: family Housing: house Communication Needs: None Do you need help understanding health information?: Never current occupation: [email or web address] - works in the [employer] Pets and animals: No Sexually active: No Do you think of yourself as: straight/heterosexual Current gender identity: female What is your relationship status?: never How often do you talk on the phone with friends or family?: once per week How often do you get together with friends or relatives?: decline to answer How often do you attend rastafari or anabaptist services?: decline to answer Do you belong to any clubs or organized social groups?: no Panel score (0-1 are the most socially isolated patients): 0 What type of physical activity do you participate in: walking and other Details: PT Duration: 15-30 minutes/day Frequency: 3-4 times per week Sandy/Pentecostalism: Sabianism Special sandy needs: No Seatbelt use: always Helmet use: No Drive intox or ride w/intox telephone directory distributor driver: No Do you feel safe at home: Yes Do you feel safe in your relationship?: Yes Meds Home Medications and Allergies Allergies Allergy/AdvReac Type Severity Reaction Status Date / Time nickel Allergy Verified 09/05/20 13:09 zinc Allergy Skin Rash Verified 09/05/20 13:09 milk AdvReac Unknown Verified 09/05/20 13:09 IVORY SOAP Allergy Unknown RASH Uncoded 09/05/20 13:09 Metals Allergy Rash Uncoded 09/05/20 13:09 Home Medications Medication Instructions Recorded Confirmed Type Fiber Choice (inulin-sorbitol) 3 tab PO DAILY PRN tab.chew 03/15/13 09/05/20 History Vitamin C 1,000 mg PO DAILY 09/29/15 09/05/20 History Vitamin D3 4,000 unit PO DAILY 09/29/15 09/05/20 History calcium carbonate [Calcium 500] 500 mg PO DAILY 09/29/15 09/05/20 History loratadine 10 mg PO DAILY #90 tab-cap 07/12/16 09/05/20 History Turmeric Root Extract [Turmeric] 538 mg PO DAILY 12/04/17 09/05/20 History riboflavin (vitamin B2) [Vitamin 200 mg PO DAILY 01/30/18 09/05/20 History B-2] ibuprofen 800 mg PO TID PRN 09/07/18 09/05/20 History bupropion HCl 300 mg 24 hr tablet, 300 mg PO QAM #90 tab 12/31/19 09/05/20 Rx extended release fluticasone propionate 50 2 spray DEWAYNE DAILY #47.4 gm 12/31/19 09/05/20 Rx mcg/actuation nasal spray,suspension omeprazole magnesium 20 mg 20 mg PO DAILY #30 tab 08/19/20 09/05/20 Rx tablet,delayed release aspirin 81 mg tablet,delayed 81 mg PO DAILY 09/03/20 09/05/20 History release atorvastatin 80 mg tablet 80 mg PO DAILY 09/03/20 09/05/20 History carvedilol 25 mg tablet 25 mg PO BID 09/03/20 09/05/20 History clopidogrel 75 mg tablet 75 mg PO DAILY 09/03/20 09/05/20 History isosorbide mononitrate 30 mg 30 mg PO DAILY 09/03/20 09/05/20 History tablet,extended release 24 hr nicotine 7 mg/24 hr daily 1 patch TRANSDERMAL Q24H 09/03/20 09/05/20 History transdermal patch nitroglycerin 0.4 mg sublingual 0.4 mg SUBLINGUAL Q5M PRN 09/03/20 09/05/20 History tablet Exam Narrative Exam Narrative: Morbidly obese female who appears to be in no acute respiratory distress. Not using accessory respiratory muscles. She is very pleasant and cooperative and alert and oriented person place time circumstance. Neck is without JVD she has normal carotid pulses but has bilateral carotid bruits. Lungs with bibasilar rales no rhonchi or wheezing Heart is regular with no appreciable gallop but she has a soft systolic murmur over the apex. Abdomen is obese soft nontender no bruits no palpable masses no organomegaly. Lower extremities without peripheral pitting edema. She has normal pedal pulses. Neuro exam grossly intact. Results Labs Result diagrams: 09/05/20 13:10 09/05/20 13:19 Labs: Laboratory Results - last 24 hr 09/05/20 09/05/20 09/05/20 13:10 13:10 13:10 WBC 7.97 RBC 3.87 L Hgb 11.9 Hct 36.6 MCV 94.6 MCH 30.7 MCHC 32.5 RDW 12.4 Plt Count 272 MPV 11.2 H Immature Gran % 0.3 Neutrophils % 70.6 Lymphocytes % 17.7 Monocytes % 9.2 Eosinophils % 1.6 Basophils % 0.6 Nucleated RBC % 0 Absolute Neutrophils 5.63 Absolute Lymphocytes 1.41 Absolute Monocytes 0.73 Absolute Eosinophils 0.13 Absolute Basophils 0.05 PT 10.3 INR 1.0 APTT 22.1 Sodium Potassium Chloride Carbon Dioxide Anion Gap BUN Creatinine Estimated GFR/1.73 m2 Glucose Calcium Magnesium Total Bilirubin AST ALT Alkaline Phosphatase Troponin I NT-Pro-B Natriuret Pep 7173 H Total Protein Albumin COVID-19 Source 09/05/20 09/05/20 09/05/20 13:19 15:10 15:25 WBC RBC Hgb Hct MCV MCH MCHC RDW Plt Count MPV Immature Gran % Neutrophils % Lymphocytes % Monocytes % Eosinophils % Basophils % Nucleated RBC % Absolute Neutrophils Absolute Lymphocytes Absolute Monocytes Absolute Eosinophils Absolute Basophils PT INR APTT Sodium 144 Potassium 4.3 Chloride 106 Carbon Dioxide 30.5 Anion Gap 7.5 BUN 18 Creatinine 1.5 H Estimated GFR/1.73 m2 35.19 Glucose 118 H Calcium 9.1 Magnesium 2.3 Total Bilirubin 0.5 AST 27 ALT 38 Alkaline Phosphatase 118 H Troponin I 0.66 H* 0.61 H* NT-Pro-B Natriuret Pep Total Protein 6.9 Albumin 3.2 L COVID-19 Source Nasopharyx Last Vital Signs Temp 36.6 C 09/05/20 13:05 Pulse 54 L 09/05/20 16:33 Resp 14 09/05/20 16:33 BP 132/58 L 09/05/20 16:33 Pulse Ox 94 09/05/20 16:33 COVID-19 Screening Have you, or household traveled for leisure in last 14 days?: No Had IN PERSON contact w/suspected or confirmed C-19 person: No
[2020-09-05 17:20] LABS: COVID-19 PCR Negative (Negative)
--- NOTE | 2020-09-05 17:30 | NUR.NOTE ---
1715: Patient requested a copy of her 09/02/[address] [facility]. Prabha Clark and Nurse supervisor phosphatic fertilizer consulted regarding this request. Pt was given a copy of this summary as requested per decision of her care team including Prabha Ring CM and Rosita Lanier RN
[2020-09-05 18:10] LABS: Troponin I 0.54 ng/mL (<0.06)
[2020-09-05] MEDS: Atorvastatin 40 MG TAB 80 MG PO (20:12)
[2020-09-05] MEDS: Nicotine 14 MG/24 HR PATCH TD (20:12)
[2020-09-05] MEDS: Carvedilol 25 MG TAB PO (20:14)
[2020-09-05] MEDS: Potassium Chloride 10 MEQ CAPCR 20 MEQ PO (20:40)
[2020-09-05 21:25] LABS: PTT Activated 54.8 sec (21.0-27.5)
[2020-09-05 21:26] LABS: Troponin I 0.51 ng/mL (<0.06)
[2020-09-06] VITALS (28 sets, daily range): BP systolic 110–149; BP diastolic 37–68; PULSE 49–71; RESP 10–20; TEMP 36.1–36.9; O2SAT 90–98
[2020-09-06] MEDS: nitroGLYcerin 2% 1 INCH/1 GM PKT TP ×4 (01:29→20:00)
[2020-09-06] MEDS: Acetaminophen 325 MG TAB PO (04:12)
[2020-09-06 05:50] LABS: Abs Immature Grans 0.03 10^3/uL (0.0-0.06); Absolute Basophil Count 0.06 10^3/uL (0.0-0.2); Absolute Eosinophil Count 0.16 10^3/uL (0.0-0.7); Absolute Lymphocyte Count 1.68 10^3/uL (1.2-3.4); Absolute Monocyte Count 0.78 10^3/uL (0.1-0.8); Absolute Neutrophil Count 4.94 10^3/uL (1.2-6.7); Basophils % 0.8; Eosinophils % 2.1; HGB 11.8 g/dL (11.2-15.7); Immature Grans % 0.4; MCH 30.3 pg (27.0-33.0); MCHC 32.8 % (32.0-36.0); MCV 92.5 fL (80-95); MPV 10.9 fL (8.0-11.0); Monocytes % 10.2; Neutrophils % 64.5; Nucleated RBC 0 %; Platelet Count 254 10^3/uL (130-400); RBC 3.89 10^6/uL (3.93-5.22); RDW 12.2 % (11.7-14.6); RDW-SD 41.1 fL; WBC 7.65 10^3/uL (4.4-10.8)
[2020-09-06 06:08] LABS: PTT Activated 45.4 sec (21.0-27.5)
[2020-09-06 06:09] LABS: ALT 34 U/L (14-59); AST 23 U/L (15-37); Albumin 3.2 g/dL (3.4-5.0); Alkaline Phosphatase 114 U/L (46-116); Anion Gap 6.9 mmol/L (3-11); BUN 22 mg/dL (7-18); Bilirubin, Total 0.7 mg/dL (0.2-1.0); CO2 32.1 mmol/L (21.0-32.0); CREATININE 1.6 mg/dL (0.55-1.02); Calcium 8.6 mg/dL (8.5-10.1); Chloride 101 mmol/L (98-107); Estimated GFR 32.66 (mL/min/1.73m2); Glucose 106 mg/dL (74-106); NT-proBNP 7397 pg/mL (<300); Potassium 3.3 mmol/L (3.5-5.1); Sodium 140 mmol/L (136-145); Total Protein 6.5 g/dL (6.4-8.2)
[2020-09-06] MEDS: Omeprazole 20 MG CAPCR PO (06:48)
[2020-09-06] MEDS: Potassium Chloride 10 MEQ CAPCR 40 MEQ PO (06:48)
--- NOTE | 2020-09-06 08:00 | PDOC.CMIN ---
- If Service Date Differs Date of service: 09/06/20 Time of Service: 08:00 Care Management Initial Assess REASON FOR HOSPITALIZATION:: CHF, NSTEMI. PAST MEDICAL HISTORY/PAST SURGICAL HISTORY:: Medical History: Acromioclavicular joint arthritis, Actinic keratosis (09/29/15), Adhesive capsulitis of right shoulder - Right shoulder required shoulder manipulation, Allergic rhinitis, Cataract (10/13/14) - Extraction of cataracts of both eyes done in 2014, Diverticulosis of colon without diverticulitis, Gastroesophageal reflux disease (12/03/08) - GERD,. Generalized osteoarthrosis - 11/09 XRAY: DJD LEFT SHOULDER,. Hyperlipidemia, Ischemic cardiomyopathy (08/23/20), Post concussion syndrome (01/22/18), and Torn rotator cuff. Surgical History: Abdominal hysterectomy (~08/2009), Extraction of cataract - 10/30/14; RIGHT - ~2014; Left, History of arthroscopy of knee,. History of cataract removal with insertion of prosthetic lens, S/P shoulder surgery (~08/15/18) - 08/15/18; DR. ALVARADO; EXCISION OF LEFT DISTAL CLAVICLE-kb, SKIN EXCISION - removal of birthmark, Status post abdominal hysterectomy, Status post arthroscopy of right knee (~2008),. Status post right rotator cuff repair (09/10/18) - Full thickness RTC tear repair and distal clavicle excision - Dr. Alvarado, and Status post tonsillectomy and adenoidectomy (~1959). PREVIOUS FUNCTIONAL STATUS/SOCIAL/FAMILY SUPPORTS:: Brianne is a 60 year old female who resides in [place] with her sister, Olya, and her elderly mother. 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 Prior to that, she lived in [place], [place], but returned to [place] 15 years ago to care for her mom. Brianne drives and is independent in the community. CURRENT FUNCTIONAL STATUS:: Brianne is laying in bed watching television when CM comes to meet with her. She shares that she has an upcoming sleep study but it has not been scheduled yet. She also will be attending a cardiology exercise next month. CM will continue to follow. ADVANCE DIRECTIVES:: On file; sister Tamie Schaeffer is Health Care Agent. Has patient been provided with info about the portal/API?: Yes Did the patient sign up for the portal?: No (Patient declines.) CODE STATUS:: Full Code INSURANCE COVERAGE / FINANCIAL ISSUES:: [employer]. CURRENT HOME/COMMUNITY SERVICES/EQUIPMENT:: None currently. PRIMARY CARE PHYSICIAN:: Nan Simmons MD. POTENTIAL DISCHARGE NEEDS:: Follow up appointments with PCP and procurement analyst. PATIENT/FAMILY EDUCATION NEEDS:: Discharge instructions, limitations, and follow up plan of care including Ask Me Three and self management. ANTICIPATED BARRIERS TO DISCHARGE:: None. TRANSPORTATION:: Via private vehicle with family. PLAN:: Anticipate Brianne will be discharged home when medically cleared by provider. She will follow up with her PCP, procurement analyst, and discharge plan of care as directed. Her sister will drive her home via private vehicle when ready. CM will continue to support patient and discharge planning needs.
[2020-09-06] MEDS: Nicotine 14 MG/24 HR PATCH TD (08:10)
[2020-09-06] MEDS: Valsartan 80 MG TAB 40 MG PO (08:14)
[2020-09-06] MEDS: Ascorbic Acid 500 MG TAB 1000 MG PO (08:14)
[2020-09-06] MEDS: Potassium Chloride 10 MEQ CAPCR 20 MEQ PO ×3 (08:14→20:01)
[2020-09-06] MEDS: Cholecalciferol (Vitamin D3) 1,000 UNIT TAB 4000 UNITS PO (08:14)
[2020-09-06] MEDS: buPROPion-XL 150 MG TABCR 300 MG PO (08:14)
[2020-09-06] MEDS: Carvedilol 25 MG TAB PO ×2 (08:15→20:01)
[2020-09-06] MEDS: Calcium Carbonate 1.25 GM TAB PO (08:15)
[2020-09-06] MEDS: Aspirin E.C. 81 MG TABEC PO (08:15)
[2020-09-06] MEDS: Clopidogrel 75 MG TAB PO (08:15)
[2020-09-06] MEDS: Loratidine 10 MG TAB PO (08:15)
--- NOTE | 2020-09-06 09:03 | W.PM.PROGNOT ---
Date of Service Date of service: 09/06/20 Time of Service: 09:03 Assessment and Plan Assessment and plan (1) Acute CHF (congestive heart failure): Status: Acute Assessment and plan: Patient is improved overnight with a Lasix drip. She is not requiring any supplemental oxygenation and denies any dyspnea or chest discomfort. I will discontinue her IV Lasix and put her on oral Lasix. We will keep her on heparin for another 24 hours and then discontinue her heparin and ambulate her out on medical/surgical floor tomorrow morning and if she has no exertional dyspnea or chest discomfort she can be discharged home tomorrow. She has been started on valsartan 40 mg daily and I will repeat her BMP in the morning as well as her proBNP. We will get an echocardiogram in the morning to evaluate her LV function. If her renal function remains stable she should be considered for an SGL T2 inhibitor. Qualifiers: Heart failure type: systolic Qualified Code(s): I50.21 - Acute systolic (congestive) heart failure (2) Non-ST elevation MA (NSTEMI): Status: Acute Assessment and plan: Continue aspirin and Plavix and heparin drip. We will keep her on heparin drip for 48 hours. Continue carvedilol and atorvastatin. (3) Ischemic cardiomyopathy: Status: Acute Assessment and plan: As above (4) Discharge planning issues: Status: Acute Assessment and plan: I do not anticipate she will have any home health needs or home nursing needs. Tomorrow morning we will do an ambulatory pulse oximetry to measure oxygen saturation with activity and monitor her degree of dyspnea or exertional chest pain. If she does well she will be discharged home tomorrow. Subjective Subjective Interval history since last seen: Patient feels fatigued this morning did not sleep well secondary to being up all night urinating secondary to Lasix drip. She denies any chest pain or dyspnea this morning. She is not requiring any supplemental oxygen. Exam Narrative Exam Narrative: Obese female alert and oriented person place time circumstance lying in bed appears a little blurry eyed. Lungs are clear to auscultation. Heart regular rate and rhythm Abdomen soft nondistended nontender. Lower extremities without peripheral cyanosis or edema Objective Last Vital Signs Temp 36.3 C L 09/06/20 07:28 Pulse 62 09/06/20 07:28 Resp 14 09/06/20 07:01 BP 134/55 L 09/06/20 07:28 Pulse Ox 95 09/06/20 07:28 Laboratory Results - last 24 hr 09/05/20 09/05/20 09/05/20 13:10 13:10 13:10 WBC 7.97 RBC 3.87 L Hgb 11.9 Hct 36.6 MCV 94.6 MCH 30.7 MCHC 32.5 RDW 12.4 Plt Count 272 MPV 11.2 H Immature Gran % 0.3 Neutrophils % 70.6 Lymphocytes % 17.7 Monocytes % 9.2 Eosinophils % 1.6 Basophils % 0.6 Nucleated RBC % 0 Absolute Neutrophils 5.63 Absolute Lymphocytes 1.41 Absolute Monocytes 0.73 Absolute Eosinophils 0.13 Absolute Basophils 0.05 PT 10.3 INR 1.0 APTT 22.1 Sodium Potassium Chloride Carbon Dioxide Anion Gap BUN Creatinine Estimated GFR/1.73 m2 Glucose Calcium Magnesium Total Bilirubin AST ALT Alkaline Phosphatase Troponin I NT-Pro-B Natriuret Pep 7173 H Total Protein Albumin COVID-19 Source SARS-CoV-2 (PCR) 09/05/20 09/05/20 09/05/20 13:19 15:10 15:25 WBC RBC Hgb Hct MCV MCH MCHC RDW Plt Count MPV Immature Gran % Neutrophils % Lymphocytes % Monocytes % Eosinophils % Basophils % Nucleated RBC % Absolute Neutrophils Absolute Lymphocytes Absolute Monocytes Absolute Eosinophils Absolute Basophils PT INR APTT Sodium 144 Potassium 4.3 Chloride 106 Carbon Dioxide 30.5 Anion Gap 7.5 BUN 18 Creatinine 1.5 H Estimated GFR/1.73 m2 35.19 Glucose 118 H Calcium 9.1 Magnesium 2.3 Total Bilirubin 0.5 AST 27 ALT 38 Alkaline Phosphatase 118 H Troponin I 0.66 H* 0.61 H* NT-Pro-B Natriuret Pep Total Protein 6.9 Albumin 3.2 L COVID-19 Source Nasopharyx SARS-CoV-2 (PCR) Negative 09/05/20 09/05/20 09/05/20 17:30 21:01 21:01 WBC RBC Hgb Hct MCV MCH MCHC RDW Plt Count MPV Immature Gran % Neutrophils % Lymphocytes % Monocytes % Eosinophils % Basophils % Nucleated RBC % Absolute Neutrophils Absolute Lymphocytes Absolute Monocytes Absolute Eosinophils Absolute Basophils PT INR APTT 54.8 H D Sodium Potassium Chloride Carbon Dioxide Anion Gap BUN Creatinine Estimated GFR/1.73 m2 Glucose Calcium Magnesium Total Bilirubin AST ALT Alkaline Phosphatase Troponin I 0.54 H* 0.51 H* NT-Pro-B Natriuret Pep Total Protein Albumin COVID-19 Source SARS-CoV-2 (PCR) 09/06/20 09/06/20 09/06/20 05:40 05:40 05:40 WBC 7.65 RBC 3.89 L Hgb 11.8 Hct 36.0 MCV 92.5 MCH 30.3 MCHC 32.8 RDW 12.2 Plt Count 254 MPV 10.9 Immature Gran % 0.4 Neutrophils % 64.5 Lymphocytes % 22.0 Monocytes % 10.2 Eosinophils % 2.1 Basophils % 0.8 Nucleated RBC % 0 Absolute Neutrophils 4.94 Absolute Lymphocytes 1.68 Absolute Monocytes 0.78 Absolute Eosinophils 0.16 Absolute Basophils 0.06 PT INR APTT 45.4 H Sodium 140 Potassium 3.3 L D Chloride 101 Carbon Dioxide 32.1 H Anion Gap 6.9 BUN 22 H Creatinine 1.6 H Estimated GFR/1.73 m2 32.66 Glucose 106 Calcium 8.6 Magnesium Total Bilirubin 0.7 AST 23 ALT 34 Alkaline Phosphatase 114 Troponin I NT-Pro-B Natriuret Pep 7397 H Total Protein 6.5 Albumin 3.2 L COVID-19 Source SARS-CoV-2 (PCR)
--- NOTE | 2020-09-06 12:30 | RT.EKG_ITS ---
APPROVED REPORT Exam: Resting ECG Patient Location: I HR:61 bpm ECG Measurements Heart Rate 61 AXIS ND 160 P 62 QRSd 113 QRS 55 QT 431 T 159 QTc 435 Conclusion Sinus rhythm...normal P axis, V-rate 60- 99 Probable LVH with secondary repol abnrm...multiple LVH criteria
[2020-09-06 13:30] LABS: Potassium 4.3 mmol/L (3.5-5.1)
[2020-09-06 13:35] LABS: Troponin I 0.41 ng/mL (<0.06)
[2020-09-06 18:29] LABS: Magnesium 2.3 mg/dL (1.8-2.4)
[2020-09-06] MEDS: Atorvastatin 40 MG TAB 80 MG PO (20:00)
[2020-09-07] VITALS (25 sets, daily range): BP systolic 100–148; BP diastolic 45–76; PULSE 52–74; RESP 12–24; TEMP 36–36.4; O2SAT 91–98
[2020-09-07] MEDS: nitroGLYcerin 2% 1 INCH/1 GM PKT TP ×2 (02:05→07:53)
--- NOTE | 2020-09-07 07:00 | DI.US_ITS ---
APPROVED REPORT EXAM: Comprehensive 2D, Doppler, and color-flow Echocardiogram Patient Location: In-Patient Room/Bed: [id number] Storeroom Clerk: Katlin Jimenez RDCS (AE) Indications: CHF, Ischemic Cardiomyopathy, Evaluate LF Other Information Study Quality: Fair. Technically limited study due to body habitus. Conclusion Left Ventricle : Left ventricle is moderately dilated. Left ventricular systolic function is severely decreased. Mild concentric left ventricular hypertrophy. There is global hypokinesis of the left karel tricle. The diastolic function is abnormal. LVEF is 23%. Right Ventricle : Right ventricle is not well visualized. Right ventricular systolic function could n ot be assessed. Atria : The left atrium size is normal. The right atrium size is normal. Mitral Valve : Mild mitral annular calcification. Mild mitral regurgitation. No evidence of mitral va lve stenosis. Great Vessels : The aortic root is normal in size. Ascending aorta is not well visualized. IVC is nor mal in size and collapses >50% with inspiration. See remainder of study for further details. Compared to echocardiogram from 08/24/2020 done at [facility], there is no significant change . Wall motion Left Ventricle Left ventricle is moderately dilated. Left ventricular systolic function is severely decreased. Mild concentric left ventricular hypertrophy. There is global hypokinesis of the left ventricle. The diast olic function is abnormal. There is no ventricular septal defect visualized. LVEF is 23%. Right Ventricle Right ventricle is not well visualized. Right ventricular systolic function could not be assessed. Atria The left atrium size is normal. The right atrium size is normal. The interatrial septum is intact wit h no evidence for an atrial septal defect. Aortic Valve The aortic valve is normal in structure. There is no aortic valvular stenosis. No aortic regurgitatio n is present. Mitral Valve Mild mitral annular calcification. No evidence of mitral valve stenosis. Mild mitral regurgitation. Tricuspid Valve The tricuspid valve is normal in structure. There is no tricuspid valve stenosis. Trace tricuspid reg urgitation. Pulmonic Valve Pulmonic valve is not well visualized. There is no pulmonic valvular stenosis. There is no pulmonic v alvular regurgitation. Great Vessels The aortic root is normal in size. Ascending aorta is not well visualized. IVC is normal in size and collapses >50% with inspiration. Pericardium There is no pericardial effusion. 2D Dimensions IVSD d PLAX 1.19 cm F: 0.6-1.0 LV Vol A2C d MOD 167.2 mL LVPW d PLAX 1.20 cm F: 0.6 - 1.0 LV Vol A4C d MOD 194.7 mL LVID d PLAX 5.95 cm F: 3.8 - 5.2 LA vol/ BSA A2C s A-L 25.3 mL/m2 LVDs 5.25 cm F: 2.2 - 3.5 LA vol/ BSA A4C s A-L 38.7 mL/m2 Ao Root d 3.14 cm F: 2.7 - 3.3 LA Vol/ BSA Biplane s A-L 31.5 mL/m2 RA Area A4C 13.12 cm2 LA Area A4C s MOD 23.05 cm2 RA Vol/ BSA A4C s A-L 15.3 mL/m2 LA Area A2C s MOD 18.48 cm2 LV EF Teichholz 24.6 % LV EF A4C MOD 21.0 % LVEF (Park's) 20.24 % F: 54 - 74 LV EF A2C MOD 23.4 % LV Volume 136.19 mL F: 46 - 106 LV EF Biplane MOD 20.2 % LV Volume Index 66.75 mL/m2 F: 29 - 61 SV 37.02 mL LV Vol Biplane MOD 182.9 mL SV Index 18.10 mL/m2 FS 11.50 % M-Mode TAPSE 2.61 cm (M/F) >1.7 LV Diastology MV E' medial 0.044 (>0.07 m/s) E/A Ratio 0.8 LV E/e MED 14.80 (<14) MV E Vmax 0.65 (0.4-1.3 m/s) MV E' lateral 0.046 (>0.1 m/s) MV A Vmax 0.80 (0.4-1.3 m/s) LV E/e LAT 14.15 (<14) MV E/A Ratio 0.80 MV E/E' medial 14.81 MV E/E' lateral 14.18 Aortic Valve LVOT Area 3.69 cm2 AoV Area Vmax 3.43 cm2 LVOT Vmax 1.24 m/s AoV Area/ BSA (Vmax) 1.68 cm2/m2 LVOT Mean Wan. 0.99 m/s HERNAN Mean Wan. 4.10 cm2 LVOT Peak Grad 6.2 mmHg HERNAN Mean Wan. Index 2.01 cm2/m2 LVOT Mean Grad 4.2 mmHg LVOT VTI 0.257 m LVOT Diam s 2.15 cm AoV Vmax 1.34 m/s Velocity Ratio 0.92 AoV Mean Wan. 0.89 m/s AoV Peak Grad 7.2 mmHg LVOT SV 94.89 mL AoV Mean Grad 3.6 mmHg AoV VTI 0.253 m AoV Area VTI 3.75 cm2 AoV Area/ BSA (VTI) 1.83 cm/m2 Mitral Valve MV DT 300 (160-240 msec) MR Vmax 4.18 m/s MV PHT 87 msec MR VTI 1.599 m MV Area PHT 2.53 cm2 MR Peak Grad 69.9 mmHg MV VTI 0.286 m MR Mean Grad 47.4 mmHg MV VTI Annulus 0.293 m MR PISA Radius 0.38 cm MV Area VTI 3.39 (4.0-6.0 cm2) MR EROA 0.08 cm2 MR Aliasing Velocity 0.35 m/s MR PISA 0.90 cm2 Pulmonary Valve PV Vmax 1.04 (0.5-1.5 m/s) RVOT Peak Gr. 4.06 mmHg PV Peak Grad 4.3 mmHg RVOT Mean Gr. 2.05 mmHg PV Mean Grad 2.2 mmHg RVOT VTI 0.206 m PV VTI 0.193 m RVOT Vmax 1.01 m/s Tricuspid Valve TR Peak Grad 21.1 mmHg TR Vmax 2.30 m/s RA Pressure 3.00 mmHg RVSP (TR) 24.1 mmHg
[2020-09-07 07:30] LABS: PTT Activated 44.2 sec (21.0-27.5)
[2020-09-07 07:38] LABS: Anion Gap 4.5 mmol/L (3-11); BUN 30 mg/dL (7-18); CO2 32.5 mmol/L (21.0-32.0); CREATININE 1.9 mg/dL (0.55-1.02); Chloride 103 mmol/L (98-107); Estimated GFR 26.79 (mL/min/1.73m2); Glucose 100 mg/dL (74-106); NT-proBNP 2750 pg/mL (<300); Potassium 4.3 mmol/L (3.5-5.1); Sodium 140 mmol/L (136-145)
[2020-09-07] MEDS: Ascorbic Acid 500 MG TAB 1000 MG PO (07:47)
[2020-09-07] MEDS: buPROPion-XL 150 MG TABCR 300 MG PO (07:48)
[2020-09-07] MEDS: Potassium Chloride 10 MEQ CAPCR 20 MEQ PO ×3 (07:48→19:51)
[2020-09-07] MEDS: Cholecalciferol (Vitamin D3) 1,000 UNIT TAB 4000 UNITS PO (07:48)
[2020-09-07] MEDS: Valsartan 80 MG TAB 40 MG PO (07:49)
[2020-09-07] MEDS: Carvedilol 25 MG TAB PO (07:49)
[2020-09-07] MEDS: Calcium Carbonate 1.25 GM TAB PO (07:49)
[2020-09-07] MEDS: Furosemide 40 MG TAB PO (07:50)
[2020-09-07] MEDS: Omeprazole 20 MG CAPCR PO (07:50)
[2020-09-07] MEDS: Loratidine 10 MG TAB PO (07:50)
[2020-09-07] MEDS: Aspirin E.C. 81 MG TABEC PO (07:50)
[2020-09-07] MEDS: Nicotine 14 MG/24 HR PATCH TD (07:50)
[2020-09-07] MEDS: Clopidogrel 75 MG TAB PO (07:50)
--- NOTE | 2020-09-07 08:33 | PDOC.CMPRO ---
- If Service Date Differs Date of service: 09/07/20 Time of Service: 08:33 Care Management Progress Note S/O:Brianne was lying in bed with the covers pulled up under her chin when CM met with her. She stated that she is not feeling well. Brianne complained of feeling lightheaded and nauseated, short of breath. She also stated that she had some abdominal discomfort. Brianne shared that she had hoped to be discharged but her new symptoms, with the addition of chest pain later on, required that she remain in the hospital. Medication adjustments an additional testing (Troponins) have been ordered by the provider. A: Brianne is a 60 year old woman admitted on 09/05/20 with CHF and a NSTEMI P: Anticipate Brianne will be discharged home when medically cleared by provider. She will follow up with her PCP, chlorine cell tender, and discharge plan of care as directed. Her sister will drive her home via private vehicle when ready. CM will continue to support patient and discharge planning needs
--- NOTE | 2020-09-07 10:25 | NUR.NOTE ---
Nursing Note: 1015--Patient reports the feeling of her breath catching occasionally upon expiration. VSS No respiratory distress noted at this time. Lung sounds CTA.
--- NOTE | 2020-09-07 10:45 | NUR.NOTE ---
Nursing Note: Patient reports RUQ Sharp pain that started at 1040 and is now easing off (1044) associated with slight nausea and lightheadedness. She continues to have catching upon expiration.
--- NOTE | 2020-09-07 13:00 | RT.EKG_ITS ---
APPROVED REPORT Exam: Resting ECG Patient Location: I HR:62 bpm ECG Measurements Heart Rate 62 AXIS MD 161 P 61 QRSd 113 QRS 56 QT 430 T 155 QTc 439 Conclusion Sinus rhythm...normal P axis, V-rate 60- 99 Incomplete left bundle branch block...QRSd>110mS, terminal axis(-90,-1) Probable LVH with secondary repol abnrm...multiple LVH criteria
[2020-09-07] MEDS: nitroGLYcerin 0.4 MG TAB SL ×2 (13:10→13:35)
--- NOTE | 2020-09-07 13:12 | PGE_ITS ---
Date of Service Date of service: 09/07/20 Time of Service: 13:12 Assessment and Plan Assessment and plan (1) Acute CHF (congestive heart failure): Status: Acute Assessment and plan: Patient's acute congestive heart failure appears to be improving her lungs are clear and she is now on room air with an oxygen saturation 95%. Her echocardiogram however demonstrates a severe ischemic cardiomyopathy with a left ventricular ejection fraction of 23% with mild concentric LVH and global hypokinesis of her left ventricle. She also has diastolic dysfunction. Right ventricle was not well visualized and therefore no comment could be made about right ventricular systolic function. She has mild mitral regurgitation. When compared to her echocardiogram from August 24, 2020 there is been no significant change. Her proBNP is down to 2700 from a peak of 7400. However she is now azotemic with a BUN of 30 and a creatinine 1.9. (Baseline BUN is 22 and creatinine 1.6) Her blood pressures were running a little on the soft side this morning with systolic blood pressures of 100-1 13 and diastolic pressures in the 50s. I just started on valsartan this morning and unfortunately she got her oral furosemide before I saw her morning labs. I put her furosemide on hold for now. I think in order to allow initiation of valsartan her carvedilol should be changed to appear beta-kwan rather than a beta kwan combination with alpha-kwan. As such I switched her carvedilol to bisoprolol. As long as her blood pressure will tolerate we will keep her on the valsartan 40 mg daily. Monitor renal function has recovered we will restart the furosemide. Qualifiers: Heart failure type: systolic Qualified Code(s): I50.21 - Acute systolic (congestive) heart failure (2) Non-ST elevation ME (NSTEMI): Status: Acute Assessment and plan: It was not clear as to whether or not she had another acute ME with her current admission as she seemed to present more with acute CHF secondary to ischemic cardiomyopathy. Nevertheless she had elevated troponin levels on admission of 0.66 which is progressively declined down to 0.41 yesterday. I was not can check any more troponin levels however shortly after lunchtime she developed acute chest pressure along with aching in her jaw and a feeling of shortness of breath. I have obtained another stat EKG and ordered another troponin level and she has been given sublingual nitroglycerin. It appears that her ECG shows similar LVH with strain type changes however there is now progression of her T wave inversions across the precordial chest leads including V2 and V3 all the way up to V6. In light of her ongoing angina I will keep her on a heparin drip and if the sublingual nitroglycerin not taken her discomfort away she will be started on a nitroglycerin drip and I will be calling [facility] to discuss possible transfer to cardiology service out of concern that she may have thrombosed her coronary stent. (3) Ischemic cardiomyopathy: Status: Acute Assessment and plan: Titration of her medications as above. Once her renal function recovers consider addition of an SGLT2 inhibitor. Consider addition of eplerenone once she is tolerating her valsartan and her renal fu nction has returned to baseline. (4) Ventricular tachycardia: Status: Acute Assessment and plan: Transient ventricular tachycardia yesterday associated with hypokalemia. No recurrence since then even with her anginal pain (5) Discharge planning issues: Status: Acute Assessment and plan: Discharge plans are on hold pending resolution of her ACS. Subjective Subjective Interval history since last seen: Overall the patient is improved from acute congestive heart failure standpoint with the improvement in her oxygenation and a drop in her proBNP however she developed some azotemia. I been hopeful of discharging her later this afternoon however at lunchtime she developed chest tightness and aching in her jaw similar to when she had her ME. This was relieved with 2 nitroglycerin tablets. She is currently pain-free and not having dyspnea. Earlier this morning she had episode of some nausea and some vague right lower quadrant abdominal discomfort which is since resolved. Overnight she has had no further episodes of ventricular tachycardia. She had some runs yesterday that seem to be associated with hypokalemia and resolved after improvement in her potassium levels. Potassium level was as low as 3.3 yesterday but after oral and IV supplementation came up to 4.3. I repeated her EKG while she was having her chest and jaw discomfort and she seems to have had some new T wave inversions in the anteroseptal leads that were not present on admission. She has persistent ST depression and T wave inversion in limb leads I and aVL as well as V4 through V6 that were present on admission however the T wave inversions in V2 and V3 are new. Based on the recurrent anginal quality discomfort that was relieved with nitroglycerin and the new T wave changes I have asked [facility] for cardiology consultation. EKGs have been faxed to them. Objective Last Vital Signs Temp 36.4 C L 09/07/20 12:00 Pulse 58 L 09/07/20 12:01 Resp 12 09/07/20 12:01 BP 113/51 L 09/07/20 12:01 Pulse Ox 96 09/07/20 12:01 Laboratory Results - last 24 hr 09/06/20 09/06/20 09/07/20 12:50 18:05 06:50 APTT 44.2 H Sodium Potassium 4.3 D Chloride Carbon Dioxide Anion Gap BUN Creatinine Estimated GFR/1.73 m2 Glucose Calcium Magnesium 2.3 Troponin I 0.41 H* NT-Pro-B Natriuret Pep 09/07/20 06:50 APTT Sodium 140 Potassium 4.3 Chloride 103 Carbon Dioxide 32.5 H Anion Gap 4.5 BUN 30 H Creatinine 1.9 H Estimated GFR/1.73 m2 26.79 Glucose 100 Calcium 9.0 Magnesium Troponin I NT-Pro-B Natriuret Pep 2750 H
[2020-09-07 14:05] LABS: Troponin I 0.19 ng/mL (<0.06)
[2020-09-07 17:13] LABS: Troponin I 0.19 ng/mL (<0.06)
[2020-09-07] MEDS: Amiodarone 200 MG TAB 400 MG PO (17:19)
[2020-09-07] MEDS: nitroGLYcerin 2% 1 INCH/1 GM PKT 0.5 GM TP (17:19)
[2020-09-07] MEDS: Atorvastatin 40 MG TAB 80 MG PO (19:51)
[2020-09-08] VITALS (25 sets, daily range): BP systolic 110–150; BP diastolic 47–81; PULSE 51–78; RESP 11–21; TEMP 36–36.7; O2SAT 93–98
[2020-09-08] MEDS: nitroGLYcerin 2% 1 INCH/1 GM PKT 0.5 GM TP ×2 (00:03→05:53)
[2020-09-08 07:36] LABS: BUN 30 mg/dL (7-18); CREATININE 2.1 mg/dL (0.55-1.02); Calcium 9.2 mg/dL (8.5-10.1); Chloride 103 mmol/L (98-107); Estimated GFR 23.86 (mL/min/1.73m2); Glucose 108 mg/dL (74-106); Potassium 4.5 mmol/L (3.5-5.1); Sodium 137 mmol/L (136-145)
[2020-09-08] MEDS: Ascorbic Acid 500 MG TAB 1000 MG PO (10:15)
[2020-09-08] MEDS: Nicotine 14 MG/24 HR PATCH TD (10:15)
[2020-09-08] MEDS: Loratidine 10 MG TAB PO (10:15)
[2020-09-08] MEDS: Cholecalciferol (Vitamin D3) 1,000 UNIT TAB 4000 UNITS PO (10:15)
[2020-09-08] MEDS: Clopidogrel 75 MG TAB PO (10:15)
[2020-09-08] MEDS: Calcium Carbonate 1.25 GM TAB PO (10:15)
[2020-09-08] MEDS: buPROPion-XL 150 MG TABCR 300 MG PO (10:15)
[2020-09-08] MEDS: Isosorbide Mononitrate 60 MG TABCR PO (10:15)
[2020-09-08] MEDS: Omeprazole 20 MG CAPCR PO ×2 (10:15→14:12)
[2020-09-08] MEDS: Bisoprolol 5 MG TAB PO (10:15)
[2020-09-08] MEDS: Aspirin E.C. 81 MG TABEC PO (10:15)
[2020-09-08] MEDS: Docusate Sodium 100 MG CAP PO (10:25)
[2020-09-08] MEDS: Fluticasone NASAL SPRAY 16 GM BTL NS (10:25)
--- NOTE | 2020-09-08 13:02 | W.PM.PROGNOT ---
Date of Service Date of service: 09/08/20 Time of Service: 13:02 Assessment and Plan Assessment and plan (1) Acute CHF (congestive heart failure): Status: Acute Qualifiers: Heart failure type: systolic Qualified Code(s): I50.21 - Acute systolic (congestive) heart failure (2) Non-ST elevation ME (NSTEMI): Status: Acute (3) Ischemic cardiomyopathy: Status: Acute (4) Ventricular tachycardia: Status: Acute (5) Discharge planning issues: Status: Acute Subjective Subjective Interval history since last seen: See handwritten progress note from computer downtime this morning Exam Narrative Exam Narrative: See handwritten progress note from computer downtime this morning Objective Last Vital Signs Temp 36.0 C L 09/08/20 04:05 Pulse 62 09/08/20 12:19 Resp 20 09/08/20 12:19 BP 150/81 H 09/08/20 12:19 Pulse Ox 96 09/08/20 10:22 Laboratory Results - last 24 hr 09/07/20 09/07/20 09/08/20 13:24 16:15 05:25 APTT 46.0 H Sodium Potassium Chloride Carbon Dioxide Anion Gap BUN Creatinine Estimated GFR/1.73 m2 Glucose Calcium Troponin I 0.19 H* 0.19 H* 09/08/20 07:10 APTT Sodium 137 Potassium 4.5 Chloride 103 Carbon Dioxide 28.0 Anion Gap 6.0 BUN 30 H Creatinine 2.1 H Estimated GFR/1.73 m2 23.86 Glucose 108 H Calcium 9.2 Troponin I
--- NOTE | 2020-09-08 14:17 | NUR.NOTE ---
Nursing Note: 1300--Patient reports coughing up slight yellwo thin phlegm. Patient states in the past this symptom of coughing up phlegm has been a precursor to CHF onset. Patient reports bilateral jaw tightness rated 2/10 at this time. 1408 Patient reports slight nausea and dizziness if she moves quickly.
--- NOTE | 2020-09-08 17:57 | PDOC.CMPRO ---
- If Service Date Differs Date of service: 09/08/20 Time of Service: 17:57 Care Management Progress Note S/O:Brianne was lying in bed when CM met with her. She stated that she felt much better and was hoping to be able to go home today. Brianne requested that CM fax her discharge summary to her cardiologists in [place], [place]. This will be done after discharge. Brianne denied the need for any services at home. She lives with her mother and sister and feels she has whatever support she needs. CM will continue to follow. A: Brianne is a 60 year old woman admitted on 09/05/20 with CHF and a NSTEMI P: Anticipate Brianne will be discharged home when medically cleared by provider. She will follow up with her PCP, air intelligence officer, and discharge plan of care as directed. Her sister will drive her home via private vehicle when ready. CM will continue to support patient and discharge planning needs
[2020-09-08] MEDS: Atorvastatin 40 MG TAB 80 MG PO (20:22)
[2020-09-09] VITALS (11 sets, daily range): BP systolic 126–142; BP diastolic 55–64; PULSE 55–71; RESP 13–23; TEMP 36.2–36.9; O2SAT 96–97
[2020-09-09] MEDS: Nicotine 14 MG/24 HR PATCH TD (08:27)
[2020-09-09] MEDS: Clopidogrel 75 MG TAB PO (08:28)
[2020-09-09] MEDS: Calcium Carbonate 1.25 GM TAB PO (08:28)
[2020-09-09] MEDS: Bisoprolol 5 MG TAB PO (08:28)
[2020-09-09] MEDS: Cholecalciferol (Vitamin D3) 1,000 UNIT TAB 4000 UNITS PO (08:28)
[2020-09-09] MEDS: buPROPion-XL 150 MG TABCR 300 MG PO (08:28)
[2020-09-09] MEDS: Isosorbide Mononitrate 60 MG TABCR PO (08:28)
[2020-09-09] MEDS: Aspirin E.C. 81 MG TABEC PO (08:28)
[2020-09-09] MEDS: Ascorbic Acid 500 MG TAB 1000 MG PO (08:28)
[2020-09-09] MEDS: Fluticasone NASAL SPRAY 16 GM BTL NS (08:29)
[2020-09-09] MEDS: Loratidine 10 MG TAB PO (08:29)
[2020-09-09 09:16] LABS: Anion Gap 9.2 mmol/L (3-11); BUN 33 mg/dL (7-18); CO2 28.8 mmol/L (21.0-32.0); Calcium 9.4 mg/dL (8.5-10.1); Chloride 99 mmol/L (98-107); Estimated GFR 25.25 (mL/min/1.73m2); Glucose 129 mg/dL (74-106); NT-proBNP 3150 pg/mL (<300); Potassium 4.2 mmol/L (3.5-5.1); Sodium 137 mmol/L (136-145)
[2020-09-09] MEDS: Amiodarone 200 MG TAB 400 MG PO (10:18)
--- NOTE | 2020-09-09 12:26 | DSE_ITS ---
Date of service: 09/09/20 Time of Service: 12:34 DS: Diagnosis Discharge Diagnosis (1) Acute CHF (congestive heart failure): Status: Acute (2) Non-ST elevation CA (NSTEMI): Status: Acute (3) Ischemic cardiomyopathy: Status: Chronic (4) Ventricular tachycardia: Status: Acute (5) Discharge planning issues: Status: Acute Discharge Plan Disposition Patient Disposition: HOME Condition: Improving Discharge Details Reason For Visit: CHF, NSTEMI Admit Date/Time: 09/05/20 15:59 Admit Provider: Jorge Euceda Attending Provider: Jorge Euceda Primary Care Provider: Nan Simmons [facility] Course Hospital Course: 60-year-old female with history of ischemic cardiomyopathy with a STEMI from August 23, 2020 with a prolonged stay at [facility] through September 01, 2020 eventually leading to multiple cardiac catheterizations and stent placement of her left circumflex artery. At that time her ejection fraction was 23%. Because of acute kidney injury she was not sent home on diuretics. She subsequently presented to the emergency department September 05, 2020 with chest pressure and dyspnea and was found to be in acute congestive heart failure with an elevated proBNP of 7100 and a troponin I level of 0.66 and renal insufficiency with a creatinine 1.5. EKG demonstrated sinus rhythm with evidence of a previous inferior infarct with Q waves in 2 3 and aVF as well as evidence for LVH with strain type pattern with lateral ST depression T wave inversion in limb leads I, aVL and V4 through V6. Patient was given dose of Lasix 60 mg IV push and she was admitted to the intensive care unit on a heparin drip and treated as an NSTEMI and an acute exacerbation of her ischemic cardiomyopathy. Patient was kept on her atorvastatin and her Plavix and aspirin as well as her carvedilol. Serial labs and EKGs and troponin levels were monitored while she received furosemide drip to get her out of her acute congestive heart failure. Her peak troponin I level was 0.66 on admission and progressively declined thereafter to its final level of 0.19 on September 07, 2020. proBNP was 7173 on admission and peaked at 7397 before finally declining down to 3100. Patient's azotemia did worsen with the furosemide drip with her BUN climbing to 30 and creatinine 1.9 when the furosemide drip was discontinued. This was on September 07, 2020. Further furosemide was withheld and her BUN and creatinine plateaued at 33 and 2.0. Patient was started on valsartan 40 mg once a day for heart failure. Her carvedilol dose was changed to bisoprolol in order to have adequate blood pressure to utilize the ARB. Patient had episodes of nonsustained ventricular tachycardia with rates up into the 150s with the longest run being 20 beats. She was started on amiodarone for her milligrams twice a day. She had transient hypokalemia which was quickly corrected. Potassium is gotten as low as 3.3 on September 06 but after replacement remained between 4.2 and 4.5. Her Imdur dose was increased to 60 mg daily. Telephone consultation was obtained with the back shoe operator on-call from [facility] who felt that there was no evidence for in-stent thrombosis as the patient's repeat echocardiogram had shown no new wall motion abnormalities and the patient's troponin levels were declining. Repeat echocardiogram was performed on September 07, 2020 and again showed severe LV systolic dysfunction with an ejection fraction 23% and global hypokinesis of left ventricle and mild concentric LVH and moderately dilated LV. Right ventricle was not well visualized and therefore RV systolic function could not be assessed. Right and left atrial size were normal. She has mild MAC and mild mitral regurgitation. When compared to her prior echocardiogram from August 24, 2020 at [facility] there is no significant change. Patient was discharged in markedly improved condition. Because of her renal insufficiency the furosemide will be prescribed every other day. Amiodarone will continue to be loaded at 400 mg twice a day for 10 more days and then decrease down to 400 mg once a day. Patient will be set up with a 14-day cardiac event recorder upon discharge to monitor for stability of her ventricular tachycardia. Patient will get repeat BMP in 5 days along with a magnesium level. Patient will have follow-up with Dr. Fanta Sherwood her ecology professor in the next week. Home Meds and New Rx's Prescriptions: New isosorbide mononitrate 60 mg tablet extended release 24 hr 60 mg PO DAILY Qty: 30 RF: 0 amiodarone 400 mg tablet 400 mg PO BID Qty: 60 RF: 0 bisoprolol fumarate 5 mg tablet 5 mg PO DAILY Qty: 30 RF: 0 furosemide 40 mg tablet 40 mg PO Q OTHER DAY Qty: 30 RF: 0 potassium chloride 20 mEq tablet extended release 20 meq PO .qod Qty: 30 RF: 0 valsartan 40 mg tablet 40 mg PO DAILY Qty: 30 RF: 0 Continued bupropion HCl 300 mg tablet extended release 24 hr 300 mg PO QAM Qty: 90 RF: 4 fluticasone propionate 50 mcg/actuation spray,suspension 2 spray DEWAYNE DAILY Qty: 47.4 RF: 5 omeprazole magnesium [Prilosec OTC] 20 mg tablet,delayed release (DR/EC) 20 mg PO DAILY Qty: 30 RF: 0 Vitamin C 1,000 MG tablet extended release 1,000 mg PO DAILY RF: 0 calcium carbonate [Calcium 500] 500 MG tablet 500 mg PO DAILY RF: 0 Vitamin D3 4,000 UNIT capsule 4,000 unit PO DAILY RF: 0 loratadine 10 MG tablet 10 mg PO DAILY Qty: 90 RF: 12 Turmeric Root Extract [Turmeric] 538 MG capsule 538 mg PO DAILY RF: 0 riboflavin (vitamin B2) [Vitamin B-2] 100 MG tablet 200 mg PO DAILY RF: 0 aspirin 81 mg tablet,delayed release (DR/EC) 81 mg PO DAILY RF: 0 atorvastatin 80 mg tablet 80 mg PO DAILY RF: 0 clopidogrel [Plavix] 75 mg tablet 75 mg PO DAILY RF: 0 nicotine 7 mg/24 hr patch 24 hour 1 patch transdermal Q24H RF: 0 nitroglycerin 0.4 mg tablet, sublingual 0.4 mg sublingual Q5M PRNRF: 0 Discontinued Fiber Choice (inulin-sorbitol) 1.5 GM tablet,chewable 3 tab PO DAILY PRNRF: 0 carvedilol 25 mg tablet 25 mg PO BID RF: 0 isosorbide mononitrate 30 mg tablet extended release 24 hr 30 mg PO DAILY RF: 0 ibuprofen 800 mg tablet 800 mg PO TID PRNRF: 0 Discharge Instructions Instructions: Heart Failure (DC), Low-Sodium Diet (DC) Additional Instructions: Your carvedilol has been replaced w/ bisoprolol. Amiodarone was added to treat your cardiac arrhythmia, ventricular tachycardia. Take the amiodarone 400 mg twice per day for 10 days then decrease to 400 mg once per day or as advised by Dr. Sherwood. Take your lasix 40 mg once every other day and monitor your daily weights. Report any weight gain of 2 pounds or more to your ecology professor. Take your potassium every other day with your lasix. Get repeat labs (BMP, and magnesium; measure of your kidney function and electrolytes) in 5 days). You should have cardiac event recorder done upon your discharge and worn for 14 day. This will asses the stability of your heart rhythm looking for recurrence of ventricular tachycardia. Follow a low sodium, low fat diet. Avoid foods that are high in sodium. Your isosorbide mononitrate dose was increased to 60 mg daily. A new prescriptions was written, however, you may use your older prescription for 30 mg but will need to take two tablets to equal 60 mg of isosorbide mononitrate ER (extended release) daily. If you have recurrent dyspnea not relieved by rest or dyspnea that requires you to get up out of bed due to shortness of breath w/ lying down or chest pain or pressure that is not quickly and immediately relieved by rest or a single nitroglycerin then call EMS immediately for return to hospital. Referrals: Nan Simmons [place], [place] [Primary Care Provider] - 09/21/20 4:00 pm Fanta Sherwood MD [ [facility] STAFF PHYSICIAN] - 09/10/20 Activity:: Activity as Tolerated Equipment/Supplies:: No Equipment Needed Diet:: low fat/low sodium Discharge Orders Discharge Orders: Discharge Order (Routine); Ordered 09/09/20 Ordered By: Jorge Euceda Other Ambulatory Orders: Basic Metabolic Panel (Routine) Timeframe: 5 Days Facility: [facility] - Location: Laboratory Outpatient Ordered By: Jorge Euceda 14 Day Chief Order Dispatcher (Routine) Timeframe: 10 Day Facility: [facility] - Location: Respiratory Therapy Ordered By: Jorge Euceda DS: Summary Time Spent with Patient providing and/or coordinating discharge services: Greater than 30 minutes Status at Discharge Functional status at discharge: independent ambulation Overall status at discharge: patient is progressing back to baseline Mental Status: mental status grossly normal Speech and Movement: speech and movement normal Mood: congruent mood Affect: normal affect Exam Narrative Exam Narrative: Pleasant late middle-aged female who is sitting up at the bedside alert and oriented person place time circumstance. She just completed her breakfast. She is not requiring any oxygen and not dyspneic. Lungs are clear to auscultation Heart is regular rate and rhythm with no appreciable murmur rub or gallop. Lower extremities without edema. Review of her rhythm strips shows that she is in sinus rhythm with a left bundle branch block with a heart rate in the 60s. Psych Mental Status: mental status grossly normal Speech and Movement: speech and movement normal Mood: congruent mood Affect: normal affect DS: Data Vitals/I&O Vitals and I&O: Vital Signs Temperature 36.8 C 09/09/20 12:04 Temperature Source Temporal Artery Scan 09/09/20 12:04 Pulse 59 L 09/09/20 10:30 Pulse 71 09/09/20 10:30 Respiratory Rate 09/09/20 10:30 Respiratory Effort Non-Labored 09/09/20 12:04 Respiratory Depth Normal 09/09/20 12:04 Respiratory Pattern Normal 09/09/20 12:04 Blood Pressure 126/64 09/09/20 10:30 Blood Pressure Mean 75 09/09/20 10:30 Blood Pressure Position Right Lateral 09/09/20 04:15 Pulse Oximetry 97 09/09/20 09:13 Oxygen Delivery Method Room Air 09/09/20 12:04 Oxygen Flow Rate 0 09/09/20 12:04 Pain Level 0 09/09/20 12:04 Intake & Output 09/08/20 09/09/20 09/09/20 23:59 11:59 23:59 Intake Total 256.667 / 755.167 440 / 440 Output Total 800 / 1350 525 / 525 Balance -543.333 / -594.833 -85 / -85 Intake: IV 16.667 / 215.167 Oral 240 / 540 440 / 440 Output: Urine 800 / 1350 525 / 525 Other: Urine Color Yellow Yellow Urine Appearance Clear Clear Urine Odor Normal Comment Voiding in Bedside commode ad yasir prn. Voiding in Bedside commode ad yasir prn. Voiding in Bedside commode ad yasir prn. Voiding Methods Bedside Commode Bedside Commode Data Completed and Pending Labs on day of discharge: Labs from last 24 hours 09/09/20 08:45 Sodium 137 Potassium 4.2 Chloride 99 Carbon Dioxide 28.8 Anion Gap 9.2 BUN 33 H Creatinine 2.0 H Estimated GFR/1.73 m2 25.25 Glucose 129 H Calcium 9.4 NT-Pro-B Natriuret Pep 3150 H [facility] Medical History (Updated 09/09/20 @ 12:34 by Jorge Euceda) Acromioclavicular joint arthritis Actinic keratosis (09/29/15) Adhesive capsulitis of right shoulder Right shoulder required shoulder manipulation Allergic rhinitis Cataract (10/13/14) Extraction of cataracts of both eyes done in 2014 Diverticulosis of colon without diverticulitis Gastroesophageal reflux disease (12/03/08) GERD Generalized osteoarthrosis 11/09 XRAY: DJD LEFT SHOULDER Hyperlipidemia Ischemic cardiomyopathy (08/23/20) Post concussion syndrome (01/22/18) Torn rotator cuff Surgical History (Updated 09/05/20 @ 19:39 by Jorge Euceda) Abdominal hysterectomy (~08/2009) Extraction of cataract 10/30/14; RIGHT ~2014; Left History of arthroscopy of knee History of cataract removal with insertion of prosthetic lens S/P shoulder surgery (~08/15/18) 08/15/18; DR. ALVARADO; EXCISION OF LEFT DISTAL CLAVICLE-kb SKIN EXCISION removal of birthmark Status post abdominal hysterectomy Status post arthroscopy of right knee ~2008 Status post right rotator cuff repair (09/10/18) Full thickness RTC tear repair and distal clavicle excision Dr. Alvarado Status post tonsillectomy and adenoidectomy Tonsillectomy and adenoidectomy (~1959) Family History Mother Essential hypertension Heart disease PACEMAKER Hyperlipidemia Hypothyroidism Father Diabetes Essential hypertension Heart disease Hyperlipidemia Myocardial infarction Stroke Sister Depression Heart disease Hyperlipidemia Brother Diabetes Depression Heart disease Hyperlipidemia Maternal Grandfather Essential hypertension Heart disease Hyperlipidemia Paternal Grandfather Lung cancer Maternal Grandmother Essential hypertension Heart disease Hyperlipidemia Paternal Grandmother Diabetes Social History Smoking/Tobacco Use Status: Current every day Tobacco Type: cigarettes Smoking packs per day: 0.5 Smoking cigarettes per day: 10.0 Years smoked: 30 Smoking pack-years: 15.00 Tobacco: How many years used: 40 Quit status: considering quitting Second Hand Exposure: Yes Smoking risk assessment performed?: Yes Alcohol Intake: current Alcohol Intake frequency: a few times a week Alcohol type: hard liquor Drug use: Never Substance use type: former substance user Date of last use: 1971 Counseling given: No Counseling provided: none Caregiver/Support person: No Household members: family Housing: house Communication Needs: None Do you need help understanding health information?: Never current occupation: [employer] works in the [employer] Pets and animals: No Sexually active: No Do you think of yourself as: straight/heterosexual Current gender identity: female What is your relationship status?: never How often do you talk on the phone with friends or family?: once per week How often do you get together with friends or relatives?: decline to answer How often do you attend druze or yarsanism services?: decline to answer Do you belong to any clubs or organized social groups?: no Panel score (0-1 are the most socially isolated patients): 0 What type of physical activity do you participate in: walking and other Details: PT Duration: 15-30 minutes/day Frequency: 3-4 times per week Sandy/Sabianism: Zoroastrian Special sandy needs: No Seatbelt use: always Helmet use: No Drive intox or ride w/intox star route mail driver: No Do you feel safe at home: Yes Do you feel safe in your relationship?: Yes
--- NOTE | 2020-09-09 16:19 | PDOC.CMDIS ---
- If Service Date Differs Date of service: 09/09/20 Time of Service: 16:19 LACE Index Scoring Tool - Questions: Length of Stay (in days): 4 - 6 Acuity (Admit via E.D.?): Yes Comorbidities: Congestive Heart Failure E.D. Visits: 2 - Answers: Total Score: 11 Risk of Readmission: High Risk Care Management Discharge Reason for Hospitalization: CHF, NSTEMI. Discharge Plan: Brianne will be discharged home and will follow up with her PCP, propeller mechanic, and discharge plan of care as directed. Her sister will drive her home via private vehicle. Patient/Family Education Needs: Discharge plan, limitations, follow up plan, Ask Me Three
== END 2020-09-09 13:45 | disposition home or self-care (01) | DRG 280 ==
LOC: ER 16:28 → ICU 16:44
PROVIDERS: Family Medicine; General Practice; Admitting Provider Internal Medicine; Emergency Provider Emergency Medicine; PCP Family Medicine; Visit Provider Internal Medicine
DX: I11.0 Hypertensive heart disease with heart failure (principal); I50.21 Acute systolic (congestive) heart failure; I21.4 Non-ST elevation (NSTEMI) myocardial infarction; I21.3 ST elevation (STEMI) myocardial infarction of unspecified site; I47.2 Ventricular tachycardia; I25.5 Ischemic cardiomyopathy; E78.5 Hyperlipidemia, unspecified; E66.9 Obesity, unspecified; K21.9 Gastro-esophageal reflux disease without esophagitis; I44.7 Left bundle-branch block, unspecified; Z95.5 Presence of coronary angioplasty implant and graft; J30.9 Allergic rhinitis, unspecified; K57.30 Diverticulosis of large intestine without perforation or abscess without bleeding; M15.9 Polyosteoarthritis, unspecified; F17.210 Nicotine dependence, cigarettes, uncomplicated
CPT/HCPCS: 36410; 36415; 80048; 80053; 93005; 93246; 94618; 96365; 96366; 96375; 96376; 99223; 99233; 99238; 99285; 71045; 83735; 83880; 84132; 84484; 85025; 85610; 85730; 93010; 93306; J1940

== ENCOUNTER 2020-09-14 03:19 | Outpatient (CLI) | payer OTHER, SELFPAY ==
[2020-09-14 12:01] LABS: HCT 40.1 % (36.0-46.0); HGB 12.6 g/dL (11.2-15.7); MCH 30.2 pg (27.0-33.0); MCHC 31.4 % (32.0-36.0); MCV 96.2 fL (80-95); MPV 10.8 fL (8.0-11.0); Platelet Count 332 10^3/uL (130-400); RBC 4.17 10^6/uL (3.93-5.22); RDW 12.5 % (11.7-14.6); RDW-SD 44.6 fL; WBC 7.85 10^3/uL (4.4-10.8)
[2020-09-14 13:14] LABS: ALT 35 U/L (14-59); AST 18 U/L (15-37); Albumin 3.8 g/dL (3.4-5.0); Alkaline Phosphatase 132 U/L (46-116); Anion Gap 8.8 mmol/L (3-11); BUN 35 mg/dL (7-18); Bilirubin, Total 0.6 mg/dL (0.2-1.0); CO2 30.2 mmol/L (21.0-32.0); CREATININE 2.2 mg/dL (0.55-1.02); Calcium 9.6 mg/dL (8.5-10.1); Chloride 105 mmol/L (98-107); Estimated GFR 22.62 (mL/min/1.73m2); Glucose 115 mg/dL (74-106); Potassium 5.1 mmol/L (3.5-5.1); Sodium 144 mmol/L (136-145); Total Protein 7.1 g/dL (6.4-8.2)
[2020-09-14 13:22] LABS: Magnesium 2.3 mg/dL (1.8-2.4); TSH (W/Ref FT4) 5.09 uIU/mL (0.36-3.74)
[2020-09-14 13:43] LABS: FREE T4 1.14 ng/dL (0.76-1.46)
== END 2020-09-14 03:20 | disposition home or self-care (01) ==
LOC: LBO 03:19
PROVIDERS: PCP Family Medicine; Visit Provider Internal Medicine
DX: N17.9 Acute kidney failure, unspecified (principal); Z51.81 Encounter for therapeutic drug level monitoring; R06.09 Other forms of dyspnea; R06.02 Shortness of breath
CPT/HCPCS: 36415; 80053; 85027; 83735; 84439; 84443

== ENCOUNTER 2020-09-25 02:24 | Outpatient (CLI) | payer OTHER, SELFPAY ==
[2020-09-25 13:21] LABS: ALT 23 U/L (14-59); AST 14 U/L (15-37); Albumin 3.7 g/dL (3.4-5.0); Alkaline Phosphatase 130 U/L (46-116); Anion Gap 8.7 mmol/L (3-11); BUN 39 mg/dL (7-18); Bilirubin, Total 0.5 mg/dL (0.2-1.0); CO2 31.3 mmol/L (21.0-32.0); CREATININE 2.3 mg/dL (0.55-1.02); Calcium 9.6 mg/dL (8.5-10.1); Chloride 103 mmol/L (98-107); Estimated GFR 21.49 (mL/min/1.73m2); Glucose 132 mg/dL (74-106); Magnesium 2.3 mg/dL (1.8-2.4); Potassium 4.2 mmol/L (3.5-5.1); Sodium 143 mmol/L (136-145); Total Protein 6.9 g/dL (6.4-8.2)
--- NOTE | 2020-09-28 08:47 | W.ZIOMONITOR ---
Date of service: 09/28/20 Time of Service: 08:47 14 Day Forming Process Line Worker Referring Provider:: magan Indications:: VT Note: This is a 14-day monitor order for indication of ventricular tachycardia. ?The patient was in normal sinus rhythm for the majority of the recording with an average heart rate of 54 bpm. ?There were 9 episodes of ventricular tachycardia with the longest lasting 20 beats. There were rare PVCs. ?There were 4 episodes of supraventricular tachycardia with the longest lasting 3 beats. There were rare PACs. ?There were no episodes of atrial fibrillation, no pauses greater than 3 seconds and no evidence of high degree heart block. ?There were 2 patient triggered events which were not associated with arrhythmia.
== END 2020-09-25 02:25 | disposition home or self-care (01) ==
LOC: LBO 02:24
PROVIDERS: PCP Family Medicine; Visit Provider Family Medicine
DX: I50.21 Acute systolic (congestive) heart failure (principal); N17.9 Acute kidney failure, unspecified
CPT/HCPCS: 36415; 80048; 80053; 83735

== ENCOUNTER 2020-10-15 16:31 | Observation (INO) | payer OTHER, SELFPAY ==
[2020-10-15] VITALS (35 sets, daily range): BP systolic 107–160; BP diastolic 41–76; PULSE 47–70; RESP 10–25; TEMP 36.4–36.8; O2SAT 94–99
--- NOTE | 2020-10-15 16:30 | RT.EKG_ITS ---
APPROVED REPORT Exam: Resting ECG Patient Location: E HR:55 bpm ECG Measurements Heart Rate 55 AXIS SC 169 P 38 QRSd 128 QRS 47 QT 496 T 95 QTc 474 Conclusion Sinus bradycardia...rate< 60 LVH with secondary repolarization abnormality...multi-LVH criteria, abnrm ST-T t wave inversions v3-6
--- NOTE | 2020-10-15 16:30 | RT.EKG_ITS ---
APPROVED REPORT Exam: Resting ECG Patient Location: E HR:59 bpm ECG Measurements Heart Rate 59 AXIS IA 161 P 36 QRSd 189 QRS -14 QT 538 T 126 QTc 535 Conclusion Sinus bradycardia...rate< 60 Left bundle branch block...QRSd>120, broad/notched R ST elevation secondary to IVCD...Multiple VCG criteria negative for sgarbossa criteria
--- NOTE | 2020-10-15 16:45 | DI.RAD_ITS ---
EXAM: XR CHEST 2V PA LATERAL CLINICAL HISTORY: Chest Pain TECHNIQUE: 2D digital imaging was performed. COMPARISON: No exams were available for comparison FINDINGS: MEDIASTINUM: Normal. HEART: Normal. PULMONARY VASCULATURE: Normal. LUNGS: Clear. PLEURAL SPACE: No pleural effusion or pneumothorax. BONE:Within normal limits for the patient's age. There is a right shoulder arthroplasty. OTHER FINDINGS:Normal. IMPRESSION: No acute pulmonary findings. DATA REPOSITORY: RADIATION DOSE DELIVERED:
[2020-10-15 16:50] LABS: Abs Immature Grans 0.02 10^3/uL (0.0-0.06); Absolute Basophil Count 0.05 10^3/uL (0.0-0.2); Absolute Eosinophil Count 0.48 10^3/uL (0.0-0.7); Absolute Lymphocyte Count 1.78 10^3/uL (1.2-3.4); Absolute Monocyte Count 0.78 10^3/uL (0.1-0.8); Absolute Neutrophil Count 3.24 10^3/uL (1.2-6.7); Basophils % 0.8; Eosinophils % 7.6; HCT 39.8 % (36.0-46.0); HGB 13.1 g/dL (11.2-15.7); Immature Grans % 0.3; MCH 30.5 pg (27.0-33.0); MCHC 32.9 % (32.0-36.0); MCV 92.8 fL (80-95); MPV 10.2 fL (8.0-11.0); Monocytes % 12.3; Nucleated RBC 0 %; Platelet Count 292 10^3/uL (130-400); RBC 4.29 10^6/uL (3.93-5.22); RDW 12.5 % (11.7-14.6); RDW-SD 42.5 fL; WBC 6.35 10^3/uL (4.4-10.8)
--- NOTE | 2020-10-15 16:51 | ED.GENADUL_ITS ---
Discharge Plan Disposition Patient Disposition: [facility] INPATIENT Condition: Improving Discharge Details Clinical Impression: Jaw pain, Ischemic cardiomyopathy Admit Date/Time: 10/15/20 18:51 Admit Provider: Cortes Mercer Attending Provider: Cortes Mercer Primary Care Provider: Nan Simmons ED Provider: Amira Aguero Medical Decision Making 60-year-old female presents to the ER with chief complaint of tightness, lightheaded and dizziness which has been worsening over the last 2 to 3 days and waking her up out of sleep. She denies any nausea or vomiting, no radiation into her back or chest. She denies any leg swelling or weight gain. She reports chest tightness for out of 10 currently. She did take her normal a.m. medications. She also endorses 1 alcoholic drink prior to arrival. She was recently transferred to [facility] in August had a stent placed to the left artery, was admitted here beginning of August for an NSTEMI. She recently had a Holter monitor placed which showed runs of V. tach on September 28, 2020. Her count room clerk is Dr. Sherwood. She was recently decreased on her amiodarone from 400 mg to 200 mg. EKG was reviewed by Dr. Anbial Azul MD ER attending, please see his official report. Old EKG available for review. Previous EKG shows a partial left bundle branch block current EKG shows a complete left bundle branch block. At this time patient is pleasant alert and oriented x4, complaining of chest tightness over the last 2 to 3 days 4 out of 10, associated with dizziness and lightheadedness which wakes her up from her sleep. She does have a extensive cardiac history with a catheterization of the left circumflex in August. History of NSTEMI, CHF, V. tach, sleep apnea, hyperlipidemia. Patient did take a 81 mg aspirin prior to arrival we will complete this and give her 243. She is also taking clopidogrel 75 mg daily, recently decreased the dose of amiodarone from 400 mg to 200 mg daily. 0.4 mg nitro sublingual x3 as needed chest pain ordered. Cardiac work-up including serial troponins, chest x- ray. BNP ordered due to patient history of CHF, extensive cardiac history, and shortness of breath. 1724: Informed by clinical staff pharmacist that patient has received 2 sublingual nitroglycerin, she was up to the commode to give urine sample and nurse noted that her rhythm changed, patient's jaw pain is completely resolved at this point. This may indicate a vessel spasm, instructed to obtain another EKG. Currently initial troponin is within normal limits less than 0.05, CBC is largely within normal limits, CMP is at patient's baseline, second troponin and BNP is pending at this time. PT and APTT is in normal limits. 172: EKG morphology changes noted patient is no longer in a left bundle branch block, does have some inverted T waves in V1 V2 V3 and V4, V5. 174: Call made to [facility] for consult with cardiology regarding patient and EKG changes. 182: Patient remained pain-free, updated on plan of care and call out for cardiology she verbalizes understanding. Second troponin is due to be drawn at approximately 1944. Imaging protocol: XR of the chest. Views: 2 views. COMPARISON: CR XR PORTABLE CHEST AP 09/05/2020 1:22 PM FINDINGS: Lungs: The lungs are clear without opacity or suspicious parenchymal finding. Pleural spaces: Unremarkable. No pleural effusion. No pneumothorax. Heart/Mediastinum: Unremarkable. No cardiomegaly. Bones/joints: Right total shoulder arthroplasty. Severe left shoulder are 3 or thread is. IMPRESSION: No acute cardiopulmonary process. Thank you for allowing us to participate in the care of your patient. Dictated and Authenticated by: Ymail Ackerman MD 183: Spoke with Dr Berman [employer] at [facility] who was able to personally view the EKGs I did discuss the patient case and details with him, he recommends admission for observation and serial troponins x3, at this time he states it is reassuring that she has a negative initial troponin and that she does not currently seem to be an ACS however with her high risk factors and her recent history he would recommend admission for observation. Will contact hospitalist regarding patient. Discussed case with Dr. Mercer, who is on for hospitalist he agrees to accept patient for admission, further observation and serial troponins. Discussed plan of care with patient who verbalizes understanding and is in agreement with plan. HPI General Mode of arrival: ambulatory . Date/Time Provider Initiated Documentation: 10/15/20 16:35 . Limitations to Documentation: no limitations . Information obtained by: patient, RN notes reviewed and old records reviewed . HPI Narrative: 60-year-old female presents to the ER with chief complaint of tightness, lightheaded and dizziness which has been worsening over the last 2 to 3 days and waking her up out of sleep. She denies any nausea or vomiting, no radiation into her back or chest. She denies any leg swelling or weight gain. She reports chest tightness for out of 10 currently. She did take her normal a.m. medications. She also endorses 1 alcoholic drink prior to arrival. She was recently transferred to [facility] in August had a stent placed to the left artery, was admitted here beginning of August for an NSTEMI. She recently had a Holter monitor placed which showed runs of V. tach on September 28, 2020. Her count room clerk is Dr. Sherwood. She was recently decreased on her amiodarone from 400 mg to 200 mg. Related Data Home Medications Medication Instructions Recorded Confirmed Vitamin C 1,000 mg PO DAILY 09/29/15 10/15/20 Vitamin D3 4,000 unit PO DAILY 09/29/15 10/15/20 calcium carbonate [Calcium 500] 500 mg PO DAILY 09/29/15 10/15/20 loratadine 10 mg PO DAILY PRN #90 tab-cap 07/12/16 10/15/20 Turmeric Root Extract [Turmeric] 538 mg PO DAILY 12/04/17 10/15/20 riboflavin (vitamin B2) [Vitamin 200 mg PO DAILY 01/30/18 10/15/20 B-2] bupropion HCl 300 mg 24 hr tablet, 300 mg PO QAM #90 tab 12/31/19 10/15/20 extended release aspirin 81 mg tablet,delayed 81 mg PO DAILY 09/03/20 10/15/20 release nicotine 7 mg/24 hr daily 1 patch TRANSDERMAL Q24H 09/03/20 10/15/20 transdermal patch nitroglycerin 0.4 mg sublingual 0.4 mg SUBLINGUAL Q5M PRN 09/03/20 10/15/20 tablet amiodarone 400 mg PO BID #60 tab 09/09/20 atorvastatin 80 mg tablet 80 mg PO DAILY #90 tab 09/21/20 10/15/20 bisoprolol fumarate 5 mg tablet 5 mg PO DAILY #90 tab 09/21/20 10/15/20 clopidogrel 75 mg tablet 75 mg PO DAILY #90 tab 09/21/20 10/15/20 fluticasone propionate 50 2 spray DEWAYNE DAILY #47.4 gm 09/21/20 10/15/20 mcg/actuation nasal spray,suspension furosemide 40 mg tablet 40 mg PO DAILY #90 tab 09/21/20 10/15/20 isosorbide mononitrate 60 mg 60 mg PO DAILY #90 tab 09/21/20 10/15/20 tablet,extended release 24 hr potassium chloride 20 mEq 20 meq PO DAILY #90 tab 09/21/20 10/15/20 tablet,extended release valsartan 40 mg tablet 40 mg PO DAILY #90 tab 09/21/20 10/15/20 Previous Rx's Medication Instructions Recorded bupropion HCl 300 mg 24 hr tablet, 300 mg PO QAM #90 tab 12/31/19 extended release amiodarone 400 mg PO BID #60 tab 09/09/20 atorvastatin 80 mg tablet 80 mg PO DAILY #90 tab 09/21/20 bisoprolol fumarate 5 mg tablet 5 mg PO DAILY #90 tab 09/21/20 clopidogrel 75 mg tablet 75 mg PO DAILY #90 tab 09/21/20 fluticasone propionate 50 2 spray DEWAYNE DAILY #47.4 gm 09/21/20 mcg/actuation nasal spray,suspension furosemide 40 mg tablet 40 mg PO DAILY #90 tab 09/21/20 isosorbide mononitrate 60 mg 60 mg PO DAILY #90 tab 09/21/20 tablet,extended release 24 hr potassium chloride 20 mEq 20 meq PO DAILY #90 tab 09/21/20 tablet,extended release valsartan 40 mg tablet 40 mg PO DAILY #90 tab 09/21/20 Allergies Allergy/AdvReac Type Severity Reaction Status Date / Time nickel Allergy Verified 10/15/20 16:37 zinc Allergy Skin Rash Verified 10/15/20 16:37 milk AdvReac Unknown Verified 10/15/20 16:37 IVORY SOAP Allergy Unknown RASH Uncoded 10/15/20 16:37 Metals Allergy Rash Uncoded 10/15/20 16:37 General Stated Complaint: Dizzy/Sync MANOLO: 2 Review of Systems Narrative: Constitutional: Negative for weight loss, alert and oriented, well groomed, obese body habitus, appears comfortable. HEENT: Denies trauma, headaches, blurry vision, nasal discharge, sore throat, trouble swallowing. Chest: Report bilateral jaw tightness x2 to 3 days. History of coronary artery disease, V. tach, SVT and recent stent placed in the left circumflex artery. Respiratory: Denies cough, hemoptysis. GI: Denies abdominal pain, nausea, vomiting, diarrhea, constipation. : Denies dysuria, hematuria, flank pain, rectal bleeding. Neuro: Denies blurry vision, weakness, syncope, headache or facial numbness. Positive dizziness and lightheadedness Hematologic: Denies easy bruising, intolerance to heat or cold, hair loss. [facility] Medical History (Updated 10/15/20 @ 22:42 by Amira Aguero) Acromioclavicular joint arthritis Actinic keratosis (09/29/15) Adhesive capsulitis of right shoulder Right shoulder required shoulder manipulation Allergic rhinitis Cataract (10/13/14) Extraction of cataracts of both eyes done in 2014 Chronic renal disease Diverticulosis of colon without diverticulitis Gastroesophageal reflux disease (12/03/08) GERD Generalized osteoarthrosis 11/09 XRAY: DJD LEFT SHOULDER Hyperlipidemia Ischemic cardiomyopathy (08/23/20) Post concussion syndrome (01/22/18) Smoker Torn rotator cuff Surgical History Abdominal hysterectomy (~08/2009) Extraction of cataract 10/30/14; RIGHT ~2014; Left History of arthroscopy of knee History of cataract removal with insertion of prosthetic lens S/P shoulder surgery (~08/15/18) 08/15/18; DR. ALVARADO; EXCISION OF LEFT DISTAL CLAVICLE-kb SKIN EXCISION removal of birthmark Status post abdominal hysterectomy Status post arthroscopy of right knee ~2008 Status post right rotator cuff repair (09/10/18) Full thickness RTC tear repair and distal clavicle excision Dr. Alvarado Status post tonsillectomy and adenoidectomy Tonsillectomy and adenoidectomy (~1959) Family History Mother Essential hypertension Heart disease PACEMAKER Hyperlipidemia Hypothyroidism Father Diabetes Essential hypertension Heart disease Hyperlipidemia Myocardial infarction Stroke Sister Depression Heart disease Hyperlipidemia Brother Diabetes Depression Heart disease Hyperlipidemia Maternal Grandfather Essential hypertension Heart disease Hyperlipidemia Paternal Grandfather Lung cancer Maternal Grandmother Essential hypertension Heart disease Hyperlipidemia Paternal Grandmother Diabetes Social History (Updated 10/15/20 @ 21:50 by Cortes Mercer) Smoking/Tobacco Use Status: Former Tobacco Use Tobacco: How many years used: 40 Quit status: considering quitting Second Hand Exposure: Yes Smoking risk assessment performed?: Yes Alcohol Intake: current Alcohol Intake frequency: a few times a week Alcohol type: hard liquor Drug use: Never Substance use type: former substance user Date of last use: 1971 Counseling given: No Counseling provided: none Caregiver/Support person: No Household members: family Housing: house Communication Needs: None Do you need help understanding health information?: Never 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 Pets and animals: No Sexually active: No Do you think of yourself as: straight/heterosexual Current gender identity: female What is your relationship status?: never How often do you talk on the phone with friends or family?: once per week How often do you get together with friends or relatives?: decline to answer How often do you attend scientologist or jain services?: decline to answer Do you belong to any clubs or organized social groups?: no Panel score (0-1 are the most socially isolated patients): 0 What type of physical activity do you participate in: walking and other Details: PT Duration: 15-30 minutes/day Frequency: 3-4 times per week Sandy/Hoahaoism: Gnosticism Special sandy needs: No Seatbelt use: always Helmet use: No Drive intox or ride w/intox seasonal driver: No Do you feel safe at home: Yes Do you feel safe in your relationship?: Yes Additional Social history: Lives with her mother and sister in [place]. 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 Appears stated age. Normal body habitus. Head: Normocephalic, no trauma. Eyes: Pupils PERRLA, Red reflex noted, EOM's intact. Eyelids symmetrical without lesions, discharge, or swelling. ENT: Bilateral TM's WNL, External ear normal to inspection, no mastoid TTP, swelling, or erythema, Nasal turbinates WNL, no nasal discharge. Normal dentition, Posterior pharynx WNL, no exudate. Chest: Left bundle branch block with a rate of 59, normal S1, S2, distal pulses intact. Resp: Lungs clear to auscultation bilaterally, no wheezes, rales, or rhonchi. Musculoskeletal: Normal gait, 5/5 strength to all four extremities. Skin: No suspicious rashes or lesions. Capillary refill less than 2 sec. no edema noted to bilateral lower extremities Neurologic: Cranial nerves II-XII intact. Alert and oriented x 3. DTR's intact. Hematologic/Lymphatic: No ecchymosis, no lymphadenopathy. Course Vital Signs Vital signs: Vital Signs Temperature 36.4 C L 10/15/20 16:34 Pulse 70 10/15/20 16:34 Respiratory Rate 17 10/15/20 16:34 Blood Pressure 160/61 H 10/15/20 16:34 Pulse Oximetry 98 10/15/20 16:34 Temperature 36.4 C L 10/15/20 16:34 Temperature Source Skin 10/15/20 16:34 Pulse 66 10/15/20 16:37 Pulse 60 10/15/20 16:40 Respiratory Rate 13 10/15/20 16:40 Respiratory Effort Non-Labored 10/15/20 16:37 Blood Pressure 160/61 H 10/15/20 16:37 Blood Pressure Mean 88 10/15/20 16:37 Blood Pressure Position Sitting 10/15/20 16:34 Pulse Oximetry 98 10/15/20 16:40 Oxygen Delivery Method Room Air 10/15/20 16:34 Oxygen Flow Rate 0 10/15/20 16:34 Pain Level 3 10/15/20 16:34 Lab/Test Results Lab/Test Results: Laboratory Tests Range/Units 10/15/20 16:44 WBC (4.4-10.8) 10^3/uL 6.35 RBC (3.93-5.22) 10^6/uL 4.29 Hgb (11.2-15.7) g/dL 13.1 Hct (36.0-46.0) % 39.8 MCV (80-95) fL 92.8 MCH (27.0-33.0) pg 30.5 MCHC (32.0-36.0) % 32.9 RDW (11.7-14.6) % 12.5 Plt Count (130-400) 10^3/uL 292 MPV (8.0-11.0) fL 10.2 Immature Gran % 0.3 Neutrophils % 51.0 Lymphocytes % 28.0 Monocytes % 12.3 Eosinophils % 7.6 Basophils % 0.8 Nucleated RBC % % 0 Absolute Neutrophils (1.2-6.7) 10^3/uL 3.24 Absolute Lymphocytes (1.2-3.4) 10^3/uL 1.78 Absolute Monocytes (0.1-0.8) 10^3/uL 0.78 Absolute Eosinophils (0.0-0.7) 10^3/uL 0.48 Absolute Basophils (0.0-0.2) 10^3/uL 0.05
[2020-10-15] MEDS: nitroGLYcerin 0.4 MG TAB SL ×2 (17:01→17:12)
[2020-10-15] MEDS: Aspirin 81 MG CHEW 243 MG CH (17:01)
[2020-10-15 17:08] LABS: PTT Activated 23.4 sec (21.0-27.5); Prothrombin Time 10.1 sec (9.3-11.0)
[2020-10-15 17:10] LABS: ALT 29 U/L (14-59); AST 20 U/L (15-37); Alkaline Phosphatase 124 U/L (46-116); Anion Gap 11.4 mmol/L (3-11); BUN 34 mg/dL (7-18); Bilirubin, Total 0.5 mg/dL (0.2-1.0); CO2 28.6 mmol/L (21.0-32.0); CREATININE 2.2 mg/dL (0.55-1.02); Calcium 9.3 mg/dL (8.5-10.1); Chloride 101 mmol/L (98-107); Estimated GFR 22.62 (mL/min/1.73m2); Glucose 108 mg/dL (74-106); Magnesium 2.2 mg/dL (1.8-2.4); Potassium 3.7 mmol/L (3.5-5.1); Sodium 141 mmol/L (136-145); Total Protein 7.6 g/dL (6.4-8.2)
[2020-10-15 17:11] LABS: Troponin I < 0.05 ng/mL (<0.06)
[2020-10-15 17:28] LABS: NT-proBNP 1916 pg/mL (<300)
--- NOTE | 2020-10-15 18:13 | DI.VRAD_ITS ---
PROCEDURE INFORMATION: Exam: XR Chest Exam date and time: 10/15/2020 5:51 PM Age: 60 years old Clinical indication: Chest pain TECHNIQUE: Imaging protocol: XR of the chest. Views: 2 views. COMPARISON: CR XR PORTABLE CHEST AP 09/05/2020 1:22 PM FINDINGS: Lungs: The lungs are clear without opacity or suspicious parenchymal finding. Pleural spaces: Unremarkable. No pleural effusion. No pneumothorax. Heart/Mediastinum: Unremarkable. No cardiomegaly. Bones/joints: Right total shoulder arthroplasty. Severe left shoulder are 3 or thread is. IMPRESSION: No acute cardiopulmonary process. Dictated and Authenticated by: Yamil Ackerman MD. Ordering:KYLE Collier MD
[2020-10-15] MEDS: nitroGLYcerin 2% 1 INCH/1 GM PKT TP (19:05)
[2020-10-15 19:10] LABS: Source Nasal/Nares
[2020-10-15 20:09] LABS: Troponin I < 0.05 ng/mL (<0.06)
[2020-10-15 21:15] LABS: COVID-19 PCR Negative (Negative)
--- NOTE | 2020-10-15 21:36 | W.PM.HP.N ---
Date of service: 10/15/20 Time of Service: 21:36 Assessment and Plan Assessment and plan (1) Jaw pain: Status: Acute Assessment and plan: I agree with the concern that this jaw tightness is a possible anginal equivalent. Fortunately, the initial troponin are reassuring, especially given the pain has been present for 3 days. The EKG changes with a new left bundle branch block that resolved do suggest that what she is feeling is cardiac related. The case was reviewed by the emergency room clinician with Dr. Berman at [facility] cardiology who felt the patient should be admitted for observation, which is our plan. Should her troponin turn positive, will reassess need for anticoagulation and discuss with cardiology. We will repeat lipids as she has been on high intensity statin therapy, can consider additional medication if LDL not less than 70. (2) Chronic renal disease: Status: Chronic Assessment and plan: Patient GFR has decreased over the past year, but it is stable most recent MRI and readmission for CHF. Monitor. She is on an ARB medication. (3) Ischemic cardiomyopathy: Status: Chronic Assessment and plan: Current presentation is not with congestive heart failure. BNaP is elevated, but lower than previous numbers. Continue current medications including furosemide at her current dose. She is also on beta-kwan and receptor kwan. If her ejection fraction does not improve on follow-up echocardiogram, could consider aldosterone antagonist, ARNI, and SGLT2. (4) Smoker: Status: Acute Assessment and plan: Currently in remission, continue nicotine patches low-dose which has been helping. (5) Gastroesophageal reflux disease: Status: Chronic Assessment and plan: It is possible the patient's discomfort is related to her GERD. She has been off of her proton pump inhibitor. I agree to avoid omeprazole with clopidogrel therapy given the importance of maintaining her stent patency. I wrote her for pantoprazole here. We will have to make sure she has affordable options available upon discharge. (6) DVT prophylaxis: Status: Acute Assessment and plan: Lovenox subcut (7) Discharge planning issues: Status: Acute Assessment and plan: Patient is currently stable on medical floor with telemetry monitoring given her changing conduction and known heart disease. She is a full code. History of Present Illness History of Present Illness Chief Complaint: Jaw tightness Narrative: 60-year-old female recent smoker with history of coronary artery disease status post ST elevation WA August 23, 2020, stented left circumflex at [facility], readmitted for congestive heart failure due to reduced ejection fraction, ischemic cardiomyopathy, presenting today with 3 days of jaw tightness and increased dizziness. Patient describes tightening comfort in her bilateral upper neck jaw. Sensation is constant, 3-4 out of 10 at maximum, currently 1-2 out of 10 in severity. Not triggered by exertion. Not radiating to other areas. Associated with some nausea, upset stomach, and lightheaded dizziness. When she had her WA, she experienced tightness in the chest had significant shortness of breath, neither of which she has today. In the emergency room, she was given nitroglycerin, and reported that the tightness resolved, though the patient now states that she does not think the tightness ever went away 100%. It was also noted that after nitroglycerin her EKG, which has been showing a left bundle branch block, went back to normal. Patient confirmed she has not smoked since her initial hospitalization for her cardiac event. A week ago, she saw her community fundraiser had decreased her amiodarone from 400 mg to 200 mg daily. She also noted that her primary care changed her omeprazole to pantoprazole to avoid interaction with clopidogrel, but she was able to afford the pantoprazole. She does have chronic heartburn, but does not think her neck pain is related. Review of Systems Constitutional Constitutional: Denies anorexia, Denies chills, Denies fever(s), Reports headache(s) (Mild dull headache, not new), Reports lethargy and Denies weakness Eyes Eyes: Reports blurry vision (When dizzy), Denies diplopia, Denies irritation and Denies eye pain ENT Ears, Nose, Mouth, and Throat: Denies vertigo, Denies otalgia, Denies hearing loss, Denies mouth lesions, Denies nasal congestion, Denies nasal discharge and Denies sore throat Cardiovascular Cardiovascular: Denies chest pain, Denies diaphoresis, Denies leg edema, Denies palpitations, Denies dyspnea and Denies orthopnea Respiratory Respiratory: Denies cough, Denies excessive phlegm production, Denies dyspnea and Denies wheezing Gastrointestinal Gastrointestinal: Denies abdominal pain, Denies melena, Reports bloating, Denies hematochezia, Reports constipation, Reports heartburn, Reports nausea and Denies vomiting Genitourinary Genitourinary: Denies hematuria, Denies dysuria and Denies urinary incontinence Musculoskeletal Musculoskeletal: Denies numbness Integumentary/Breasts Skin/Breast: Denies rash and Denies skin ulcer Neurologic Neurologic: Denies vertigo, Denies numbness, Denies sensory deficit and Denies weakness Psychiatric Psychiatric: Denies mood swings and Denies panic attacks Endocrine Endocrine: Denies palpitations Hematologic/Lymphatic Hematologic/Lymphatic: Denies easy bleeding and Reports easy bruising Allergic/Immunologic Allergic/Immunologic: Denies wheezing PFSH Medical History Acromioclavicular joint arthritis Actinic keratosis (09/29/15) Adhesive capsulitis of right shoulder Right shoulder required shoulder manipulation Allergic rhinitis Cataract (10/13/14) Extraction of cataracts of both eyes done in 2014 Diverticulosis of colon without diverticulitis Gastroesophageal reflux disease (12/03/08) GERD Generalized osteoarthrosis 11/09 XRAY: DJD LEFT SHOULDER Hyperlipidemia Ischemic cardiomyopathy (08/23/20) Post concussion syndrome (01/22/18) Torn rotator cuff Surgical History Abdominal hysterectomy (~08/2009) Extraction of cataract 10/30/14; RIGHT ~2014; Left History of arthroscopy of knee History of cataract removal with insertion of prosthetic lens S/P shoulder surgery (~08/15/18) 08/15/18; DR. ALVARADO; EXCISION OF LEFT DISTAL CLAVICLE-kb SKIN EXCISION removal of birthmark Status post abdominal hysterectomy Status post arthroscopy of right knee ~2008 Status post right rotator cuff repair (09/10/18) Full thickness RTC tear repair and distal clavicle excision Dr. Alvarado Status post tonsillectomy and adenoidectomy Tonsillectomy and adenoidectomy (~1959) Family History Mother Essential hypertension Heart disease PACEMAKER Hyperlipidemia Hypothyroidism Father Diabetes Essential hypertension Heart disease Hyperlipidemia Myocardial infarction Stroke Sister Depression Heart disease Hyperlipidemia Brother Diabetes Depression Heart disease Hyperlipidemia Maternal Grandfather Essential hypertension Heart disease Hyperlipidemia Paternal Grandfather Lung cancer Maternal Grandmother Essential hypertension Heart disease Hyperlipidemia Paternal Grandmother Diabetes Social History (Updated 10/15/20 @ 21:50 by Cortes Mercer) Smoking/Tobacco Use Status: Former Tobacco Use Tobacco: How many years used: 40 Quit status: considering quitting Second Hand Exposure: Yes Smoking risk assessment performed?: Yes Alcohol Intake: current Alcohol Intake frequency: a few times a week Alcohol type: hard liquor Drug use: Never Substance use type: former substance user Date of last use: 1971 Counseling given: No Counseling provided: none Caregiver/Support person: No Household members: family Housing: house Communication Needs: None Do you need help understanding health information?: Never 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 Pets and animals: No Sexually active: No Do you think of yourself as: straight/heterosexual Current gender identity: female What is your relationship status?: never How often do you talk on the phone with friends or family?: once per week How often do you get together with friends or relatives?: decline to answer How often do you attend presybeterian or shinto services?: decline to answer Do you belong to any clubs or organized social groups?: no Panel score (0-1 are the most socially isolated patients): 0 What type of physical activity do you participate in: walking and other Details: PT Duration: 15-30 minutes/day Frequency: 3-4 times per week Sandy/Amish: Latter Day Special sandy needs: No Seatbelt use: always Helmet use: No Drive intox or ride w/intox driver salesman: No Do you feel safe at home: Yes Do you feel safe in your relationship?: Yes Additional Social history: Lives with her mother and sister in [place]. 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 Meds Allergies and Home Medications Allergies Allergy/AdvReac Type Severity Reaction Status Date / Time nickel Allergy Verified 10/15/20 16:37 zinc Allergy Skin Rash Verified 10/15/20 16:37 milk AdvReac Unknown Verified 10/15/20 16:37 IVORY SOAP Allergy Unknown RASH Uncoded 10/15/20 16:37 Metals Allergy Rash Uncoded 10/15/20 16:37 Home Medications Medication Instructions Recorded Confirmed Type Vitamin C 1,000 mg PO DAILY 09/29/15 09/05/20 History Vitamin D3 4,000 unit PO DAILY 09/29/15 09/05/20 History calcium carbonate [Calcium 500] 500 mg PO DAILY 09/29/15 09/05/20 History loratadine 10 mg PO DAILY #90 tab-cap 07/12/16 09/05/20 History Turmeric Root Extract [Turmeric] 538 mg PO DAILY 12/04/17 09/05/20 History riboflavin (vitamin B2) [Vitamin 200 mg PO DAILY 01/30/18 09/05/20 History B-2] bupropion HCl 300 mg 24 hr tablet, 300 mg PO QAM #90 tab 12/31/19 09/05/20 Rx extended release aspirin 81 mg tablet,delayed 81 mg PO DAILY 09/03/20 09/05/20 History release nicotine 7 mg/24 hr daily 1 patch TRANSDERMAL Q24H 09/03/20 09/05/20 History transdermal patch nitroglycerin 0.4 mg sublingual 0.4 mg SUBLINGUAL Q5M PRN 09/03/20 09/05/20 History tablet amiodarone 400 mg PO BID #60 tab 09/09/20 Rx atorvastatin 80 mg tablet 80 mg PO DAILY #90 tab 09/21/20 09/21/20 Rx bisoprolol fumarate 5 mg tablet 5 mg PO DAILY #90 tab 09/21/20 09/21/20 Rx clopidogrel 75 mg tablet 75 mg PO DAILY #90 tab 09/21/20 09/21/20 Rx fluticasone propionate 50 2 spray DEWAYNE DAILY #47.4 gm 09/21/20 09/21/20 Rx mcg/actuation nasal spray,suspension furosemide 40 mg tablet 40 mg PO DAILY #90 tab 09/21/20 09/21/20 Rx isosorbide mononitrate 60 mg 60 mg PO DAILY #90 tab 09/21/20 09/21/20 Rx tablet,extended release 24 hr potassium chloride 20 mEq 20 meq PO DAILY #90 tab 09/21/20 09/21/20 Rx tablet,extended release valsartan 40 mg tablet 40 mg PO DAILY #90 tab 09/21/20 09/21/20 Rx Exam Narrative Exam Narrative: GEN: Alert and oriented, pleasent and cooperative, gives linear history. No acute distress at rest. HEENT: Head atraumatic. Conjunctiva clear, no icterus. PEERL, EOMI. no rhinorrhea. MMM, OP benign. No facial tenderness including TMJ. Neck is supple with no masses or lymphadenopathy, trachea midline. No elevation of jugular venous pulsations LUNGS: CTAB with normal effort CV: RRR with no murmurs, gallops, or rubs. ABD: +BS, soft, NT/ND EXT: no cyanosis, clubbing, or edema MSK: Full range of motion neck. No joint redness or swelling NEURO: CN 2-12 grossly intact. Normal movement of 4 extremities. Normal speech and coordination SKIN: No rashs or open wounds. No bruises noted. PSYCH: normal mood and affect Results Chest x-ray: No acute cardiopulmonary process. Lungs clear. Normal heart size. Imaging Chest x-ray: report reviewed EKG: report reviewed Labs Result diagrams: 10/15/20 16:44 10/15/20 16:44 Labs: Laboratory Results - last 24 hr 10/15/20 10/15/20 10/15/20 16:44 16:44 16:44 WBC 6.35 RBC 4.29 Hgb 13.1 Hct 39.8 MCV 92.8 MCH 30.5 MCHC 32.9 RDW 12.5 Plt Count 292 MPV 10.2 Immature Gran % 0.3 Neutrophils % 51.0 Lymphocytes % 28.0 Monocytes % 12.3 Eosinophils % 7.6 Basophils % 0.8 Nucleated RBC % 0 Absolute Neutrophils 3.24 Absolute Lymphocytes 1.78 Absolute Monocytes 0.78 Absolute Eosinophils 0.48 Absolute Basophils 0.05 PT INR APTT Sodium 141 Potassium 3.7 Chloride 101 Carbon Dioxide 28.6 Anion Gap 11.4 H BUN 34 H Creatinine 2.2 H Estimated GFR/1.73 m2 22.62 Glucose 108 H Calcium 9.3 Magnesium 2.2 Total Bilirubin 0.5 AST 20 ALT 29 Alkaline Phosphatase 124 H Troponin I < 0.05 NT-Pro-B Natriuret Pep 1916 H Total Protein 7.6 Albumin 4.0 COVID-19 Source SARS-CoV-2 (PCR) 10/15/20 10/15/20 10/15/20 16:44 19:05 19:41 WBC RBC Hgb Hct MCV MCH MCHC RDW Plt Count MPV Immature Gran % Neutrophils % Lymphocytes % Monocytes % Eosinophils % Basophils % Nucleated RBC % Absolute Neutrophils Absolute Lymphocytes Absolute Monocytes Absolute Eosinophils Absolute Basophils PT 10.1 INR 1.0 APTT 23.4 Sodium Potassium Chloride Carbon Dioxide Anion Gap BUN Creatinine Estimated GFR/1.73 m2 Glucose Calcium Magnesium Total Bilirubin AST ALT Alkaline Phosphatase Troponin I < 0.05 NT-Pro-B Natriuret Pep Total Protein Albumin COVID-19 Source Nasal/nares SARS-CoV-2 (PCR) Negative Last Vital Signs Temp 36.4 C L 10/15/20 20:07 Pulse 60 10/15/20 20:28 Resp 20 10/15/20 20:07 BP 158/74 H 10/15/20 20:07 Pulse Ox 99 10/15/20 20:07 COVID-19 Screening Have you, or household traveled for leisure in last 14 days?: No Had IN PERSON contact w/suspected or confirmed C-19 person: No
[2020-10-15] MEDS: Enoxaparin 40 MG/0.4 ML SYR SC (22:39)
[2020-10-15 22:52] LABS: Troponin I < 0.05 ng/mL (<0.06)
[2020-10-15] MEDS: Atorvastatin 40 MG TAB 80 MG PO (23:43)
[2020-10-16] VITALS (7 sets, daily range): BP systolic 96–134; BP diastolic 50–76; PULSE 47–100; RESP 17–18; TEMP 35.9–37; O2SAT 97–99
[2020-10-16 01:57] LABS: Troponin I < 0.05 ng/mL (<0.06)
[2020-10-16 07:30] LABS: Calculated LDL 119 mg/dL (<100); Cholesterol 211 mg/dL (<200); HDL Cholesterol 57 mg/dL (40-60); Triglyceride 177 mg/dL (<150)
[2020-10-16] MEDS: Pantoprazole 20 MG TABCR PO (07:52)
[2020-10-16] MEDS: Clopidogrel 75 MG TAB PO (07:53)
[2020-10-16] MEDS: Calcium Carbonate 1.25 GM TAB PO (07:53)
[2020-10-16] MEDS: Potassium Chloride 20 MEQ TABCR PO (07:53)
[2020-10-16] MEDS: Furosemide 40 MG TAB PO (07:53)
[2020-10-16] MEDS: Isosorbide Mononitrate 60 MG TABCR PO (07:53)
[2020-10-16] MEDS: Loratidine 10 MG TAB PO (07:53)
[2020-10-16] MEDS: Valsartan 80 MG TAB 40 MG PO (07:54)
[2020-10-16] MEDS: Amiodarone 200 MG TAB PO (07:55)
[2020-10-16] MEDS: Aspirin E.C. 81 MG TABEC PO (07:55)
[2020-10-16] MEDS: buPROPion-XL 150 MG TABCR 300 MG PO (07:55)
[2020-10-16] MEDS: Fluticasone NASAL SPRAY 16 GM BTL NS (08:10)
--- NOTE | 2020-10-16 08:26 | INITIAL_ITS ---
- If Service Date Differs Date of service: 10/16/20 Time of Service: 08:26 Care Management Initial Assess REASON FOR HOSPITALIZATION:: Jaw Pain PAST MEDICAL HISTORY/PAST SURGICAL HISTORY:: Medical History . Acromioclavicular joint arthritis. Actinic keratosis (09/29/15). Adhesive capsulitis of right shoulder. Right shoulder required shoulder manipulation. Allergic rhinitis. Cataract (10/13/14). Extraction of cataracts of both eyes done in 2014. Diverticulosis of colon without diverticulitis. Gastroesophageal reflux disease (12/03/08). GERD. Generalized osteoarthrosis. 11/09 XRAY: DJD LEFT SHOULDER. Hyperlipidemia. Ischemic cardiomyopathy (08/23/20). Post concussion syndrome (01/22/18). Torn rotator cuff. Surgical History . Abdominal hysterectomy (~08/2009). Extraction of cataract. 10/30/14; RIGHT. ~2014; Left. History of arthroscopy of knee. History of cataract removal with insertion of prosthetic lens. S/P shoulder surgery (~08/15/18). 08/15/18; DR. ALVARADO; EXCISION OF LEFT DISTAL CLAVICLE-kb. SKIN EXCISION. removal of birthmark. Status post abdominal hysterectomy. Status post arthroscopy of right knee. ~2008. Status post right rotator cuff repair (09/10/18). Full thickness RTC tear repair and distal clavicle excision. Dr. Alvarado. Status post tonsillectomy and adenoidectomy. Tonsillectomy and adenoidectomy (~1959) PREVIOUS FUNCTIONAL STATUS/SOCIAL/FAMILY SUPPORTS:: Brianne is a 60 year old female who resides in [place] with her sister, Olya, and her elderly mother. 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 Prior to that, she lived in [place], [place], but returned to [place] 15 years ago to care for her mom. Brianne drives and is independent in the community. CURRENT FUNCTIONAL STATUS:: Brianne was lying in bed when SWATI met with her. She was sleepy and stated that she was awake almost all night. Brianne has had a medication ordered that is not covered by her insurance. Efforts to obtain a prior authorization were unsuccessful. SWATI was able to provide Brianne with 3 Good Rx coupons for pharmacies in the [facility] ranging from $6.95 to about $14. Brianne verbalized that she would be able to afford one of those. ADVANCE DIRECTIVES:: On file; sister Tamie Schaeffer is Health Care Agent Has patient been provided with info about the portal/API?: Yes Did the patient sign up for the portal?: Yes (previously) CODE STATUS:: Full Code INSURANCE COVERAGE / FINANCIAL ISSUES:: [employer] CURRENT HOME/COMMUNITY SERVICES/EQUIPMENT:: none PRIMARY CARE PHYSICIAN:: Nan Simmons MD POTENTIAL DISCHARGE NEEDS:: Follow up appointments with PCP and dairy processing equipment operator. PATIENT/FAMILY EDUCATION NEEDS:: Discharge instructions, limitations, and follow up plan of care including Ask Me Three and self management. TRANSPORTATION:: Via private vehicle with family. PLAN:: Brianne will be discharged home with no new services. She will follow up with her PCP, dairy processing equipment operator, and discharge plan of care as directed. Family will drive her home via private vehicle.
--- NOTE | 2020-10-16 08:45 | RT.EKG_ITS ---
APPROVED REPORT Exam: Resting ECG Patient Location: I HR:55 bpm ECG Measurements Heart Rate 55 AXIS AL 147 P 53 QRSd 123 QRS 64 QT 506 T 131 QTc 484 Conclusion Sinus bradycardia...rate< 60 Nonspecific intraventricular conduction delay...QRSd >115mS, not LBBB/RBBB Abnrm T, consider ischemia, anterolateral lds...T <-0.20mV, I aVL V2-V6
[2020-10-16] MEDS: Nicotine 7 MG/24 HR PATCH TD (09:00)
[2020-10-16] MEDS: Bisoprolol 5 MG TAB PO (09:01)
--- NOTE | 2020-10-16 10:15 | RESPIRATORY ---
Spoke with patient concerning history of possible sleep apnea. Patient stated she's suspected to have sleep apnea but nothing has been done or scheduled yet to decided. She currently does not use any devices that she uses at night for this.
--- NOTE | 2020-10-16 11:47 | W.CARDCONSUL ---
Date of service: 10/16/20 Time of Service: 11:47 Assessment and Plan Assessment and plan (1) Ischemic cardiomyopathy: Status: Chronic (2) Atherosclerotic cardiovascular disease: Status: Acute (3) Jaw pain: Status: Acute Assessment and plan: The patient jaw pain is atypical and there is no evidence of acute myocardial infarction. I suspect it is not cardiac. From the cardiac standpoint, her vital signs are stable. There are no findings of decompensated heart failure. Her dysrhythmia is well controlled. Her EKG is unchanged compared to prior EKG from August at [facility]. LBBB is not new. No additional cardiac testing is currently indicated I would recommend that she be discharged to outpatient follow-up as previously scheduled She can continue cardiac rehabilitation as tolerated Thank you for the opportunity to participate in the care of this patient History of Present Illness History of Present Illness Chief Complaint: Jaw pain Narrative: This 60-year-old woman presented to the emergency room because of tightness in her jaw which had been present continuously for approximately 2 or 3 days. This was not worse with activity and in fact she has been participating in cardiac rehabilitation without any significant symptoms other than fatigue She was worried that this symptom might be cardiac so she came to the emergency room. An electrocardiogram showed a left bundle branch block which actually is similar to previous EKGs from [facility] back in August. There was no evidence of myocardial necrosis on laboratory testing The patient has been observed overnight. 3 troponins are negative. night monitor has shown no significant dysrhythmia. Sinus bradycardia was present during sleep. She has had no ventricular tachycardia, SVT, or atrial fibrillation As noted, the patient has a history of coronary artery disease, ischemic cardiomyopathy and congestive heart failure dating back to. August 23. Echo showed significant left ventricular dysfunction. Cardiac catheterization showed a 25% distal left main stenosis. There was mild diffuse LAD disease and mild diffuse RCA disease. She had a occluded OM1 and a 95% stenosis of the mid circumflex which was treated with a stent Because of ventricular dysrhythmia, she was loaded with amiodarone which has since been tapered to 200 mg daily. She does not have exertional chest discomfort or significant dyspnea. She has a lot of anxiety related to her cardiac condition. She has not yet returned to work Chest x-ray this admission shows normal heart size no vascular congestion Consults Consult date: 10/16/20 Requesting physician: Ronda Bowles Review of Systems Cardiovascular Cardiovascular: Reports as per HPI, Denies chest pain, Denies chest pain at rest, Denies irregular heart rhythm, Denies lightheadedness, Denies dyspnea, Denies dyspnea on exertion, Denies orthopnea and Denies paroxysmal nocturnal dyspnea Respiratory Respiratory: Denies dyspnea and Denies dyspnea on exertion PFSH Medical History Acromioclavicular joint arthritis Actinic keratosis (09/29/15) Adhesive capsulitis of right shoulder Right shoulder required shoulder manipulation Allergic rhinitis Cataract (10/13/14) Extraction of cataracts of both eyes done in 2014 Chronic renal disease Diverticulosis of colon without diverticulitis Gastroesophageal reflux disease (12/03/08) GERD Generalized osteoarthrosis 11/09 XRAY: DJD LEFT SHOULDER Hyperlipidemia Ischemic cardiomyopathy (08/23/20) Post concussion syndrome (01/22/18) Smoker Torn rotator cuff Surgical History Abdominal hysterectomy (~08/2009) Extraction of cataract 10/30/14; RIGHT ~2014; Left History of arthroscopy of knee History of cataract removal with insertion of prosthetic lens S/P shoulder surgery (~08/15/18) 08/15/18; DR. ALVARADO; EXCISION OF LEFT DISTAL CLAVICLE-kb SKIN EXCISION removal of birthmark Status post abdominal hysterectomy Status post arthroscopy of right knee ~2008 Status post right rotator cuff repair (09/10/18) Full thickness RTC tear repair and distal clavicle excision Dr. Alvarado Status post tonsillectomy and adenoidectomy Tonsillectomy and adenoidectomy (~1959) Family History Mother Essential hypertension Heart disease PACEMAKER Hyperlipidemia Hypothyroidism Father Diabetes Essential hypertension Heart disease Hyperlipidemia Myocardial infarction Stroke Sister Depression Heart disease Hyperlipidemia Brother Diabetes Depression Heart disease Hyperlipidemia Maternal Grandfather Essential hypertension Heart disease Hyperlipidemia Paternal Grandfather Lung cancer Maternal Grandmother Essential hypertension Heart disease Hyperlipidemia Paternal Grandmother Diabetes Social History (Updated 10/15/20 @ 21:50 by Cortes Mercer) Smoking/Tobacco Use Status: Former Tobacco Use Tobacco: How many years used: 40 Quit status: considering quitting Second Hand Exposure: Yes Smoking risk assessment performed?: Yes Alcohol Intake: current Alcohol Intake frequency: a few times a week Alcohol type: hard liquor Drug use: Never Substance use type: former substance user Date of last use: 1969 Counseling given: No Counseling provided: none Caregiver/Support person: No Household members: family Housing: house Communication Needs: None Do you need help understanding health information?: Never 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 Pets and animals: No Sexually active: No Do you think of yourself as: straight/heterosexual Current gender identity: female What is your relationship status?: never How often do you talk on the phone with friends or family?: once per week How often do you get together with friends or relatives?: decline to answer How often do you attend baptism or gnosticist services?: decline to answer Do you belong to any clubs or organized social groups?: no Panel score (0-1 are the most socially isolated patients): 0 What type of physical activity do you participate in: walking and other Details: PT Duration: 15-30 minutes/day Frequency: 3-4 times per week Sandy/Methodist: Yazdanism Special sandy needs: No Seatbelt use: always Helmet use: No Drive intox or ride w/intox 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 Exam Narrative Exam Narrative: Overweight woman no acute distress Eyes Pupils: PERRL EOM: EOM intact bilaterally Neck Other: Neck is supple trachea is midline carotid pulsations are normal there are no carotid bruits Resp Auscultation: clear to auscultation bilaterally Cardio Jugular venous pressure: no JVD Rate: regular rate Rhythm: regular rhythm Other: No murmur or gallop Skin Other: Warm and dry Extrem Other: No peripheral edema Results Last Vital Signs Temp 36 C L 10/16/20 07:56 Pulse 58 L 10/16/20 07:56 Resp 18 10/16/20 07:56 BP 105/65 10/16/20 07:56 Pulse Ox 97 10/16/20 07:56 Labs Result diagrams: 10/15/20 16:44 10/15/20 16:44 Labs: Laboratory Results - last 24 hr 10/15/20 10/15/20 10/15/20 16:44 16:44 16:44 WBC 6.35 RBC 4.29 Hgb 13.1 Hct 39.8 MCV 92.8 MCH 30.5 MCHC 32.9 RDW 12.5 Plt Count 292 MPV 10.2 Immature Gran % 0.3 Neutrophils % 51.0 Lymphocytes % 28.0 Monocytes % 12.3 Eosinophils % 7.6 Basophils % 0.8 Nucleated RBC % 0 Absolute Neutrophils 3.24 Absolute Lymphocytes 1.78 Absolute Monocytes 0.78 Absolute Eosinophils 0.48 Absolute Basophils 0.05 PT INR APTT Sodium 141 Potassium 3.7 Chloride 101 Carbon Dioxide 28.6 Anion Gap 11.4 H BUN 34 H Creatinine 2.2 H Estimated GFR/1.73 m2 22.62 Glucose 108 H Calcium 9.3 Magnesium 2.2 Total Bilirubin 0.5 AST 20 ALT 29 Alkaline Phosphatase 124 H Troponin I < 0.05 NT-Pro-B Natriuret Pep 1916 H Total Protein 7.6 Albumin 4.0 Triglycerides Total Cholesterol LDL Cholesterol, Calc HDL Cholesterol COVID-19 Source SARS-CoV-2 (PCR) 10/15/20 10/15/20 10/15/20 16:44 19:05 19:41 WBC RBC Hgb Hct MCV MCH MCHC RDW Plt Count MPV Immature Gran % Neutrophils % Lymphocytes % Monocytes % Eosinophils % Basophils % Nucleated RBC % Absolute Neutrophils Absolute Lymphocytes Absolute Monocytes Absolute Eosinophils Absolute Basophils PT 10.1 INR 1.0 APTT 23.4 Sodium Potassium Chloride Carbon Dioxide Anion Gap BUN Creatinine Estimated GFR/1.73 m2 Glucose Calcium Magnesium Total Bilirubin AST ALT Alkaline Phosphatase Troponin I < 0.05 NT-Pro-B Natriuret Pep Total Protein Albumin Triglycerides Total Cholesterol LDL Cholesterol, Calc HDL Cholesterol COVID-19 Source Nasal/nares SARS-CoV-2 (PCR) Negative 10/15/20 10/16/20 10/16/20 22:30 01:30 06:10 WBC RBC Hgb Hct MCV MCH MCHC RDW Plt Count MPV Immature Gran % Neutrophils % Lymphocytes % Monocytes % Eosinophils % Basophils % Nucleated RBC % Absolute Neutrophils Absolute Lymphocytes Absolute Monocytes Absolute Eosinophils Absolute Basophils PT INR APTT Sodium Potassium Chloride Carbon Dioxide Anion Gap BUN Creatinine Estimated GFR/1.73 m2 Glucose Calcium Magnesium Total Bilirubin AST ALT Alkaline Phosphatase Troponin I < 0.05 < 0.05 NT-Pro-B Natriuret Pep Total Protein Albumin Triglycerides 177 H Total Cholesterol 211 H LDL Cholesterol, Calc 119 H HDL Cholesterol 57 COVID-19 Source SARS-CoV-2 (PCR)
--- NOTE | 2020-10-16 15:30 | W.PM.DS.N ---
Date of service: 10/16/20 Time of Service: 15:31 DS: Diagnosis Discharge Diagnosis (1) Jaw pain: Status: Acute (2) Ischemic cardiomyopathy: Status: Chronic (3) Atherosclerotic cardiovascular disease: Status: Acute (4) Hyperlipidemia: Status: Chronic (5) GERD (gastroesophageal reflux disease): Status: Chronic (6) Chronic renal disease: Status: Chronic (7) COVID-19 ruled out by laboratory testing: Status: Ruled-out Discharge Plan Disposition Patient Disposition: HOME Condition: Improving Discharge Details Reason For Visit: CHEST PAIN Admit Date/Time: 10/15/20 18:51 Admit Provider: Cortes Mercer Attending Provider: Cortes Mercer Primary Care Provider: Nan Simmons [facility] Course Hospital Course: Ms Duffy is a 60 year old female with PMhx of CAD s/p STEMI in August of 2020, as well as h/o ICMO/chronic systolic CHF w/ LVEF 23%, hypertension, hyperlipidemia, who was observed on [facility] hospitalist service from 10/15/20 until 10/16/20 for bilateral upper neck and jaw tightness. The patient ruled out for ACS by troponins and remained in NSR while on the floor; however, she did have intermittent LBBB seen in the ED as well as brief runs of Vtach while in the ED as well. She was evaluated by Dr Sherwood of cardiology, who felt that the patient's symptoms were not cardiac in origin, that her LBBB was not new, and her dysrythmia was thought to be well controlled on amiodarone. On my evaluation of the patient, location and description of her symptoms are suggestive of salivary gland issues as the symptoms are somewhat aggravated by ingestion of lemon slices. The patient was offered an ENT referral but decided she would try lemon slices and de-stressing at home first. She will follow up with her PCP for this. While here, we did submit a prior authorization for her protonix which her insurance did not previously cover but that she must be on as she is also on plavix for her heart disease. The PA is still pending, but we also gave her good rx coupons for protonix. The patient is medically stable for discharge home today. Home Meds and New Rx's Prescriptions: New pantoprazole [Protonix] 40 mg tablet,delayed release (DR/EC) 40 mg PO DAILY Qty: 30 RF: 0 Continued bupropion HCl 300 mg tablet extended release 24 hr 300 mg PO QAM Qty: 90 RF: 4 furosemide 40 mg tablet 40 mg PO DAILY Qty: 90 RF: 5 isosorbide mononitrate 60 mg tablet extended release 24 hr 60 mg PO DAILY Qty: 90 RF: 5 clopidogrel [Plavix] 75 mg tablet 75 mg PO DAILY Qty: 90 RF: 5 atorvastatin 80 mg tablet 80 mg PO DAILY Qty: 90 RF: 4 bisoprolol fumarate 5 mg tablet 5 mg PO DAILY Qty: 90 RF: 6 potassium chloride 20 mEq tablet extended release 20 meq PO DAILY Qty: 90 RF: 5 valsartan 40 mg tablet 40 mg PO DAILY Qty: 90 RF: 6 fluticasone propionate 50 mcg/actuation spray,suspension 2 spray DEWAYNE DAILY Qty: 47.4 RF: 5 Vitamin C 1,000 MG tablet extended release 1,000 mg PO DAILY RF: 0 calcium carbonate [Calcium 500] 500 MG tablet 500 mg PO DAILY RF: 0 Vitamin D3 4,000 UNIT capsule 4,000 unit PO DAILY RF: 0 loratadine 10 MG tablet 10 mg PO DAILY PRN (Reason: Allergy Symptoms) Qty: 90 RF: 12 Turmeric Root Extract [Turmeric] 538 MG capsule 538 mg PO DAILY RF: 0 riboflavin (vitamin B2) [Vitamin B-2] 100 MG tablet 200 mg PO DAILY RF: 0 aspirin 81 mg tablet,delayed release (DR/EC) 81 mg PO DAILY RF: 0 nicotine 7 mg/24 hr patch 24 hour 1 patch transdermal Q24H RF: 0 nitroglycerin 0.4 mg tablet, sublingual 0.4 mg sublingual Q5M PRNRF: 0 amiodarone 200 mg tablet 200 mg PO DAILY RF: 0 Discharge Instructions Additional Instructions: Return to the hospital if you notice swelling in your salivary glands or worsening of the pain in your neck, if you have chest pain, shortness of breath, or bleeding. Follow up with your PCP in 1-2 weeks Referrals: Nan Simmons MD, [place] [Primary Care Provider] - Activity:: Activity as Tolerated Equipment/Supplies:: No Equipment Needed Diet:: As Tolerated Discharge Orders Discharge Orders: Discharge Order (Routine); Ordered 10/16/20 Ordered By: Ronda Bowles DS: Summary Time Spent with Patient providing and/or coordinating discharge services: Less than 30 minutes Status at Discharge Functional status at discharge: independent ambulation Overall status at discharge: patient is progressing back to baseline Mental Status: mental status grossly normal Speech and Movement: speech and movement normal Mood: congruent mood Affect: normal affect Exam Narrative Exam Narrative: General: Pleasant middle-aged female, A&Ox3, no visible distress/discomfort HEENT: EOMI, MMM Heart: RRR, no m/r/g Lungs: CTAB Abdomen: soft, nontender, nondistended Extremities: no edema BLE's Psych Mental Status: mental status grossly normal Speech and Movement: speech and movement normal Mood: congruent mood Affect: normal affect DS: Data Vitals/I&O Vitals and I&O: Vital Signs Temperature 36.3 C L 10/16/20 15:23 Temperature Source Tympanic 10/16/20 15:23 Pulse 54 L 10/16/20 15:23 Pulse Rhythm Regular 10/16/20 07:45 Pulse 52 L 10/15/20 18:46 Respiratory Rate 18 10/16/20 15:23 Respiratory Effort Non-Labored 10/16/20 07:45 Respiratory Depth Normal 10/16/20 07:45 Respiratory Pattern Normal 10/16/20 07:45 Blood Pressure 134/76 10/16/20 15:23 Blood Pressure Mean 66 10/15/20 18:46 Blood Pressure Position Sitting 10/15/20 16:34 Pulse Oximetry 98 10/16/20 15:23 Oxygen Delivery Method Room Air 10/16/20 15:23 Oxygen Flow Rate 0 10/16/20 15:23 Pain Level 0 10/16/20 15:23 Intake & Output 10/15/20 10/16/20 10/16/20 23:59 11:59 23:59 Intake Total 425 / 425 480 / 480 Balance 425 / 425 480 / 480 Weight 99.79 kg Intake: Oral 425 / 425 480 / 480 Other: Urine Color Yellow Yellow Urine Appearance Clear Clear Urine Odor None Comment Patient voided directly in toilet, had previously removed measuring hat. up independently to the toilet Voiding Methods Toilet Toilet Toilet Data Completed and Pending Completed studies during hospitalization [Text1]: CXR: No acute pulmonary findings. Labs on day of discharge: Labs from last 24 hours 10/16/20 10/16/20 10/15/20 06:10 01:30 22:30 WBC RBC Hgb Hct MCV MCH MCHC RDW Plt Count MPV Immature Gran % Neutrophils % Lymphocytes % Monocytes % Eosinophils % Basophils % Nucleated RBC % Absolute Neutrophils Absolute Lymphocytes Absolute Monocytes Absolute Eosinophils Absolute Basophils PT INR APTT Sodium Potassium Chloride Carbon Dioxide Anion Gap BUN Creatinine Estimated GFR/1.73 m2 Glucose Calcium Magnesium Total Bilirubin AST ALT Alkaline Phosphatase Troponin I < 0.05 < 0.05 NT-Pro-B Natriuret Pep Total Protein Albumin Triglycerides 177 H Total Cholesterol 211 H LDL Cholesterol, Calc 119 H HDL Cholesterol 57 COVID-19 Source SARS-CoV-2 (PCR) 10/15/20 10/15/20 10/15/20 19:41 19:05 16:44 WBC RBC Hgb Hct MCV MCH MCHC RDW Plt Count MPV Immature Gran % Neutrophils % Lymphocytes % Monocytes % Eosinophils % Basophils % Nucleated RBC % Absolute Neutrophils Absolute Lymphocytes Absolute Monocytes Absolute Eosinophils Absolute Basophils PT 10.1 INR 1.0 APTT 23.4 Sodium Potassium Chloride Carbon Dioxide Anion Gap BUN Creatinine Estimated GFR/1.73 m2 Glucose Calcium Magnesium Total Bilirubin AST ALT Alkaline Phosphatase Troponin I < 0.05 NT-Pro-B Natriuret Pep Total Protein Albumin Triglycerides Total Cholesterol LDL Cholesterol, Calc HDL Cholesterol COVID-19 Source Nasal/nares SARS-CoV-2 (PCR) Negative 10/15/20 10/15/20 10/15/20 16:44 16:44 16:44 WBC 6.35 RBC 4.29 Hgb 13.1 Hct 39.8 MCV 92.8 MCH 30.5 MCHC 32.9 RDW 12.5 Plt Count 292 MPV 10.2 Immature Gran % 0.3 Neutrophils % 51.0 Lymphocytes % 28.0 Monocytes % 12.3 Eosinophils % 7.6 Basophils % 0.8 Nucleated RBC % 0 Absolute Neutrophils 3.24 Absolute Lymphocytes 1.78 Absolute Monocytes 0.78 Absolute Eosinophils 0.48 Absolute Basophils 0.05 PT INR APTT Sodium 141 Potassium 3.7 Chloride 101 Carbon Dioxide 28.6 Anion Gap 11.4 H BUN 34 H Creatinine 2.2 H Estimated GFR/1.73 m2 22.62 Glucose 108 H Calcium 9.3 Magnesium 2.2 Total Bilirubin 0.5 AST 20 ALT 29 Alkaline Phosphatase 124 H Troponin I < 0.05 NT-Pro-B Natriuret Pep 1916 H Total Protein 7.6 Albumin 4.0 Triglycerides Total Cholesterol LDL Cholesterol, Calc HDL Cholesterol COVID-19 Source SARS-CoV-2 (PCR) [facility] Medical History (Updated 10/16/20 @ 15:47 by Ronda Bowles MD) Acromioclavicular joint arthritis Actinic keratosis (09/29/15) Adhesive capsulitis of right shoulder Right shoulder required shoulder manipulation Allergic rhinitis Atherosclerotic cardiovascular disease Cataract (10/13/14) Extraction of cataracts of both eyes done in 2014 Chronic renal disease Diverticulosis of colon without diverticulitis Gastroesophageal reflux disease (12/03/08) GERD Generalized osteoarthrosis 11/09 XRAY: DJD LEFT SHOULDER Hyperlipidemia Ischemic cardiomyopathy (08/23/20) Post concussion syndrome (01/22/18) Smoker Torn rotator cuff Surgical History Abdominal hysterectomy (~08/2009) Extraction of cataract 10/30/14; RIGHT ~2014; Left History of arthroscopy of knee History of cataract removal with insertion of prosthetic lens S/P shoulder surgery (~08/15/18) 08/15/18; DR. ALVARADO; EXCISION OF LEFT DISTAL CLAVICLE-kb SKIN EXCISION removal of birthmark Status post abdominal hysterectomy Status post arthroscopy of right knee ~2008 Status post right rotator cuff repair (09/10/18) Full thickness RTC tear repair and distal clavicle excision Dr. Alvarado Status post tonsillectomy and adenoidectomy Tonsillectomy and adenoidectomy (~1959) Family History Mother Essential hypertension Heart disease PACEMAKER Hyperlipidemia Hypothyroidism Father Diabetes Essential hypertension Heart disease Hyperlipidemia Myocardial infarction Stroke Sister Depression Heart disease Hyperlipidemia Brother Diabetes Depression Heart disease Hyperlipidemia Maternal Grandfather Essential hypertension Heart disease Hyperlipidemia Paternal Grandfather Lung cancer Maternal Grandmother Essential hypertension Heart disease Hyperlipidemia Paternal Grandmother Diabetes Social History (Updated 10/15/20 @ 21:50 by Cortes Mercer) Smoking/Tobacco Use Status: Former Tobacco Use Tobacco: How many years used: 40 Quit status: considering quitting Second Hand Exposure: Yes Smoking risk assessment performed?: Yes Alcohol Intake: current Alcohol Intake frequency: a few times a week Alcohol type: hard liquor Drug use: Never Substance use type: former substance user Date of last use: 1971 Counseling given: No Counseling provided: none Caregiver/Support person: No Household members: family Housing: house Communication Needs: None Do you need help understanding health information?: Never 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 Pets and animals: No Sexually active: No Do you think of yourself as: straight/heterosexual Current gender identity: female What is your relationship status?: never How often do you talk on the phone with friends or family?: once per week How often do you get together with friends or relatives?: decline to answer How often do you attend buddhist or worship services?: decline to answer Do you belong to any clubs or organized social groups?: no Panel score (0-1 are the most socially isolated patients): 0 What type of physical activity do you participate in: walking and other Details: PT Duration: 15-30 minutes/day Frequency: 3-4 times per week Sandy/Bahai: Mormon Special sandy needs: No Seatbelt use: always Helmet use: No Drive intox or ride w/intox 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
--- NOTE | 2020-10-16 15:33 | CHAPLAIN ---
Brianne was resting in bed when I visited. She was pleasant and told me she expects to be discharged later today and lives in [place].
--- NOTE | 2020-10-16 16:08 | PDOC.CMDIS ---
- If Service Date Differs Date of service: 10/16/20 Time of Service: 16:08 LACE Index Scoring Tool - Questions: Length of Stay (in days): 1 Acuity (Admit via E.D.?): Yes E.D. Visits: 3 - Answers: Total Score: 7 Risk of Readmission: Low Risk Care Management Discharge Reason for Hospitalization: Jaw Pain Discharge Plan: Biranne will be discharged home with no new services. 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 Family will drive her home via private vehicle. Patient/Family Education Needs: Discharge instructions, limitations, and follow up plan of care including Ask Me Three and self management.
== END 2020-10-16 17:13 | disposition home or self-care (01) | DRG 155 ==
LOC: ER 16:39 → MS 22:42
PROVIDERS: Admitting Provider Family Medicine; Emergency Provider Registered Nurse Emergency; PCP Family Medicine; Visit Provider Family Medicine
DX: K11.8 Other diseases of salivary glands (principal); I50.22 Chronic systolic (congestive) heart failure; I47.2 Ventricular tachycardia; I13.0 Hypertensive heart and chronic kidney disease with heart failure and stage 1 through stage 4 chronic kidney disease, or unspecified chronic kidney disease; R68.84 Jaw pain; I25.10 Atherosclerotic heart disease of native coronary artery without angina pectoris; I25.2 Old myocardial infarction; I44.7 Left bundle-branch block, unspecified; Z79.01 Long term (current) use of anticoagulants; Z20.822 Contact with and (suspected) exposure to COVID-19; N18.9 Chronic kidney disease, unspecified; I25.5 Ischemic cardiomyopathy; F17.210 Nicotine dependence, cigarettes, uncomplicated; K21.9 Gastro-esophageal reflux disease without esophagitis; Z95.5 Presence of coronary angioplasty implant and graft; K57.30 Diverticulosis of large intestine without perforation or abscess without bleeding; J30.9 Allergic rhinitis, unspecified; M19.011 Primary osteoarthritis, right shoulder; E78.5 Hyperlipidemia, unspecified
CPT/HCPCS: 36415; 80053; 80061; 87635; 93005; 99217; 99222; 99253; 99285; J1650; 71046; 83735; 83880; 84484; 85025; 85610; 85730; 93010; 99213; G0378

== ENCOUNTER 2020-10-30 11:00 | Outpatient (RCR) | payer OTHER, SELFPAY | END 2020-10-30 23:59 | disposition home or self-care (01) | LOC: CR 11:00 | PROVIDERS: PCP Family Medicine; Visit Provider Family Medicine | DX: I25.2 Old myocardial infarction (principal); Z51.89 Encounter for other specified aftercare; I50.9 Heart failure, unspecified; I10 Essential (primary) hypertension | CPT/HCPCS: S9472 ==

== ENCOUNTER 2020-11-27 11:00 | Outpatient (RCR) | payer OTHER, SELFPAY | END 2020-11-30 23:59 | disposition home or self-care (01) | LOC: CR 11:00 | PROVIDERS: PCP Family Medicine; Visit Provider Family Medicine | DX: Z51.89 Encounter for other specified aftercare (principal); I25.2 Old myocardial infarction; I50.9 Heart failure, unspecified | CPT/HCPCS: S9472 ==

== ENCOUNTER 2020-12-23 02:16 | Outpatient (CLI) | payer OTHER, SELFPAY ==
[2020-12-23 14:00] LABS: ALT 30 U/L (14-59); AST 20 U/L (15-37); Albumin 3.7 g/dL (3.4-5.0); Alkaline Phosphatase 113 U/L (46-116); Anion Gap 9.6 mmol/L (3-11); BUN 41 mg/dL (7-18); Bilirubin, Total 0.4 mg/dL (0.2-1.0); CO2 27.4 mmol/L (21.0-32.0); CREATININE 2.1 mg/dL (0.55-1.02); Calcium 9.4 mg/dL (8.5-10.1); Chloride 105 mmol/L (98-107); Estimated GFR 23.86 (mL/min/1.73m2); Glucose 110 mg/dL (74-106); Potassium 4.9 mmol/L (3.5-5.1); Sodium 142 mmol/L (136-145); Total Protein 6.7 g/dL (6.4-8.2)
== END 2020-12-23 02:17 | disposition home or self-care (01) ==
LOC: LBO 02:16
PROVIDERS: PCP Family Medicine; Visit Provider Family Medicine
DX: N28.9 Disorder of kidney and ureter, unspecified (principal)
CPT/HCPCS: 36415; 80053

== ENCOUNTER 2020-12-30 11:00 | Outpatient (RCR) | payer OTHER, SELFPAY | END 2020-12-30 23:59 | disposition home or self-care (01) | LOC: CR 11:00 | PROVIDERS: PCP Family Medicine; Visit Provider Family Medicine | DX: Z51.89 Encounter for other specified aftercare (principal); I25.2 Old myocardial infarction; I50.9 Heart failure, unspecified | CPT/HCPCS: S9472 ==

== ENCOUNTER 2021-02-01 16:45 | Outpatient (REF) | payer OTHER, SELFPAY ==
[2021-02-01 19:38] LABS: ALT 34 U/L (14-59); AST 27 U/L (15-37); Albumin 4.1 g/dL (3.4-5.0); Alkaline Phosphatase 100 U/L (46-116); Anion Gap 7.6 mmol/L (3-11); BUN 42 mg/dL (7-18); Bilirubin, Total 0.3 mg/dL (0.2-1.0); CO2 28.4 mmol/L (21.0-32.0); CREATININE 2.4 mg/dL (0.55-1.02); Calcium 9.4 mg/dL (8.5-10.1); Chloride 104 mmol/L (98-107); Estimated GFR 20.46 (mL/min/1.73m2); Glucose 109 mg/dL (74-106); Potassium 4.5 mmol/L (3.5-5.1); Sodium 140 mmol/L (136-145)
== END 2021-02-01 16:46 | disposition home or self-care (01) ==
LOC: NCHCN 16:45
PROVIDERS: PCP Family Medicine; Visit Provider Family Medicine
DX: N28.9 Disorder of kidney and ureter, unspecified (principal)
CPT/HCPCS: 80053

== ENCOUNTER 2021-04-30 11:46 | Outpatient (CLI) | payer OTHER, SELFPAY ==
[2021-04-30 17:34] LABS: ALT 21 U/L (14-59); AST 20 U/L (15-37); Alkaline Phosphatase 130 U/L (46-116); Anion Gap 8.4 mmol/L (3-11); BUN 29 mg/dL (7-18); Bilirubin, Total 0.5 mg/dL (0.2-1.0); CO2 29.6 mmol/L (21.0-32.0); CREATININE 1.9 mg/dL (0.55-1.02); Calcium 9.6 mg/dL (8.5-10.1); Chloride 106 mmol/L (98-107); Glucose 96 mg/dL (74-106); Potassium 4.2 mmol/L (3.5-5.1); Sodium 144 mmol/L (136-145); Total Protein 6.9 g/dL (6.4-8.2)
== END 2021-04-30 11:47 | disposition home or self-care (01) ==
LOC: LBO 05-05 11:46
PROVIDERS: PCP Family Medicine; Visit Provider Family Medicine
DX: N28.9 Disorder of kidney and ureter, unspecified; I25.5 Ischemic cardiomyopathy
CPT/HCPCS: 36415; 80053

== ENCOUNTER 2021-08-12 02:51 | Outpatient (CLI) | payer OTHER, SELFPAY ==
[2021-08-12 16:47] LABS: Hemoglobin A1C 5.5 % (<5.7)
[2021-08-12 17:20] LABS: ALT 25 U/L (14-59); AST 20 U/L (15-37); Albumin 3.8 g/dL (3.4-5.0); Alkaline Phosphatase 112 U/L (46-116); Anion Gap 8.3 mmol/L (3-11); BUN 39 mg/dL (7-18); Bilirubin, Total 0.4 mg/dL (0.2-1.0); CO2 27.7 mmol/L (21.0-32.0); CREATININE 2.9 mg/dL (0.55-1.02); Calcium 8.9 mg/dL (8.5-10.1); Calculated LDL 90 mg/dL (<100); Chloride 105 mmol/L (98-107); Cholesterol 188 mg/dL (<200); Estimated GFR 16.39 (mL/min/1.73m2); Glucose 101 mg/dL (74-106); HDL Cholesterol 73 mg/dL (40-60); Potassium 4.6 mmol/L (3.5-5.1); Sodium 141 mmol/L (136-145); Total Protein 6.7 g/dL (6.4-8.2); Triglyceride 125 mg/dL (<150)
== END 2021-08-12 02:52 | disposition home or self-care (01) ==
LOC: LBO 02:51
PROVIDERS: PCP Family Medicine; Visit Provider Family Medicine
DX: E11.9 Type 2 diabetes mellitus without complications (principal); N28.9 Disorder of kidney and ureter, unspecified; I25.10 Atherosclerotic heart disease of native coronary artery without angina pectoris; F32.89 Other specified depressive episodes
CPT/HCPCS: 36415; 80053; 80061; 83036

== ENCOUNTER 2021-10-15 02:29 | Outpatient (CLI) | payer OTHER, SELFPAY ==
[2021-10-15 17:23] LABS: ALT 29 U/L (14-59); AST 24 U/L (15-37); Alkaline Phosphatase 118 U/L (46-116); Anion Gap 9.5 mmol/L (3-11); BUN 31 mg/dL (7-18); Bilirubin, Total 0.8 mg/dL (0.2-1.0); CO2 28.5 mmol/L (21.0-32.0); Calcium 9.2 mg/dL (8.5-10.1); Chloride 102 mmol/L (98-107); Estimated GFR 25.16 (mL/min/1.73m2); Glucose 100 mg/dL (74-106); Potassium 4.3 mmol/L (3.5-5.1); Sodium 140 mmol/L (136-145); Total Protein 6.6 g/dL (6.4-8.2)
== END 2021-10-15 02:30 | disposition home or self-care (01) ==
LOC: LBO 02:29
PROVIDERS: PCP Family Medicine; Visit Provider Family Medicine
DX: N18.9 Chronic kidney disease, unspecified (principal)
CPT/HCPCS: 36415; 80053

== ENCOUNTER 2022-03-08 19:43 | Outpatient (REF) | payer OTHER, SELFPAY ==
[2022-03-08 21:17] LABS: Bilirubin Negative (Negative); Blood Large (Negative); Clarity Clear (Clear); Glucose Negative (Negative); Ketones Negative (Negative); Leukocyte Esterase Negative (Negative); Nitrite Negative (Negative); Specific Gravity 1.025 (1.005-1.025); Urobilinogen 0.2 EU/dL (Up TO 0.2)
[2022-03-08 22:12] LABS: Bacteria Negative HPF (Negative); C & S Indicated? No; Casts Negative LPF (Negative); Crystals Negative HPF (Negative); Epithelial Cells Many HPF (Negative); Mucus Negative (Negative); Other Cells Negative (Negative); RBC >50 HPF (0-2); WBC Negative HPF (0-5)
== END 2022-03-08 19:44 | disposition home or self-care (01) ==
LOC: LBN 19:43
PROVIDERS: PCP Family Medicine; Visit Provider Family Medicine
DX: R30.0 Dysuria (principal)
CPT/HCPCS: 81003; 81015

== ENCOUNTER 2022-03-10 18:10 | Outpatient (REF) | payer OTHER, SELFPAY ==
[2022-03-10 17:25] LABS: Bilirubin Negative (Negative); Blood Negative (Negative); Clarity Clear (Clear); Glucose Negative (Negative); Ketones Negative (Negative); Leukocyte Esterase Negative (Negative); Nitrite Negative (Negative); Urobilinogen 0.2 EU/dL (Up TO 0.2); pH 5.5 (5-8)
== END 2022-03-10 18:11 | disposition home or self-care (01) ==
LOC: LBN 18:10
PROVIDERS: PCP Family Medicine; Visit Provider Family Medicine
DX: R31.9 Hematuria, unspecified (principal)
CPT/HCPCS: 81003

== ENCOUNTER 2022-05-04 03:59 | Outpatient (CLI) | payer OTHER, SELFPAY ==
[2022-05-04 16:39] LABS: HCT 37.2 % (36.0-46.0); HGB 11.8 g/dL (11.2-15.7); MCH 30.3 pg (27.0-33.0); MCHC 31.7 % (32.0-36.0); MCV 96 fL (80-95); Platelet Count 236 10^3/uL (130-400); RBC 3.89 10^6/uL (3.93-5.22); RDW 13.2 % (11.7-14.6); RDW-SD 46.3 fL; WBC 6.21 10^3/uL (4.4-10.8)
[2022-05-04 16:51] LABS: Hemoglobin A1C 5.8 % (<5.7)
[2022-05-04 17:06] LABS: ALT 18 U/L (14-59); AST 19 U/L (15-37); Albumin 3.7 g/dL (3.4-5.0); Alkaline Phosphatase 122 U/L (46-116); Anion Gap 5.8 mmol/L (3-11); BUN 40 mg/dL (7-18); Bilirubin, Total 0.6 mg/dL (0.2-1.0); CO2 29.2 mmol/L (21.0-32.0); CREATININE 2.4 mg/dL (0.55-1.02); Calcium 9.2 mg/dL (8.5-10.1); Calculated LDL 87 mg/dL (<100); Chloride 104 mmol/L (98-107); Cholesterol 193 mg/dL (<200); Glucose 95 mg/dL (74-106); HDL Cholesterol 82 mg/dL (40-60); Potassium 4.6 mmol/L (3.5-5.1); Sodium 139 mmol/L (136-145); TSH (W/Ref FT4) 4.09 uIU/mL (0.36-3.74); Total Protein 6.9 g/dL (6.4-8.2); Triglyceride 122 mg/dL (<150)
[2022-05-04 17:28] LABS: FREE T4 1.42 ng/dL (0.76-1.46)
== END 2022-05-04 04:00 | disposition home or self-care (01) ==
LOC: LBO 03:59
PROVIDERS: PCP Family Medicine; Visit Provider Family Medicine
DX: E11.9 Type 2 diabetes mellitus without complications (principal); Z00.00 Encounter for general adult medical examination without abnormal findings
CPT/HCPCS: 36415; 80053; 80061; 85027; 83036; 84439; 84443

== ENCOUNTER 2022-06-22 11:01 | Outpatient (CLI) | payer OTHER, SELFPAY ==
--- NOTE | 2022-06-22 15:51 | DI.US_ITS ---
APPROVED REPORT EXAM: Comprehensive 2D, Doppler, and color-flow Echocardiogram Patient Location: Out-Patient Electrician Office: Katlin Jimenez RDCS (AE) Indications: NSTEMI Other Information Study Quality: Fair. Technically limited study due to body habitus. Conclusion Mild concentric left ventricular hypertrophy. Normal left ventricular chamber size. Estimated eject ion fraction is 45%. There is a septal wall motion abnormality Normal right ventricular size and systolic function Both atria are normal in size Aortic valve is sclerotic and trileaflet without stenosis or regurgitation Mild mitral annular calcification. Trace mitral regurgitation Right ventricular systolic pressure could not be estimated Mildly dilated ascending aorta measuring 3.47 cm Wall motion Left Ventricle The left ventricle is normal size. Left ventricular systolic function is mildly decreased. Mild augusto ntric left ventricular hypertrophy. Septum is hypokinetic There is no ventricular septal defect visua lized. LVEF is 45%. Right Ventricle The right ventricle is normal size. The right ventricular systolic function is normal. Atria The left atrium size is normal. The right atrium size is normal. The interatrial septum is intact wi th no evidence for an atrial septal defect. Aortic Valve The Aortic valve is sclerotic. Aortic valve is probably trileaflet. There is no aortic valvular steno sis. No aortic regurgitation is present. Mitral Valve Mild mitral annular calcification. No evidence of mitral valve stenosis. Trace mitral regurgitation. Tricuspid Valve The tricuspid valve is normal in structure. There is no tricuspid valve stenosis. Trace tricuspid reg urgitation. Unable to assess PA pressure. Pulmonic Valve The pulmonary valve is normal in structure. There is no pulmonic valvular stenosis. There is no pulmo heather valvular regurgitation. Great Vessels The aortic root is normal in size. The ascending aorta is mildly dilated. Aortic arch is not well vis ualized. IVC is normal in size and collapses >50% with inspiration. Pericardium Trace pericardial effusion. 2D Dimensions IVSD d PLAX 1.12 cm F: 0.6-1.0 LV Vol A2C d MOD 129.6 mL LVPW d PLAX 1.11 cm F: 0.6 - 1.0 LV Vol A4C d MOD 179.4 mL LVID d PLAX 5.80 cm F: 3.8 - 5.2 LA vol/ BSA A2C s A-L 51.7 mL/m2 LVDs 4.95 cm F: 2.2 - 3.5 LA vol/ BSA A4C s A-L 19.5 mL/m2 Ao Root d 3.10 cm F: 2.7 - 3.3 LA Vol/ BSA Biplane s A-L 33.4 mL/m2 RA Area A4C 9.68 cm2 LA Area A4C s MOD 15.98 cm2 RA Vol/ BSA A4C s A-L 9.7 mL/m2 LA Area A2C s MOD 27.41 cm2 Ao Asc Diam d 3.47 cm F: 2.3 - 3.1 LV EF A4C MOD 28.3 % LV EF Teichholz 30.2 % LV EF A2C MOD 30.7 % LVEF (Park's) 26.51 % F: 54 - 74 LV EF Biplane MOD 26.5 % LV Volume 114.07 mL F: 46 - 106 SV 40.71 mL LV Volume Index 55.37 mL/m2 F: 29 - 61 SV Index 19.76 mL/m2 LV Vol Biplane MOD 153.6 mL FS 14.40 % M-Mode TAPSE 2.31 cm (M/F) >1.7 LV Diastology MV E' medial 0.039 (>0.07 m/s) E/A Ratio 0.7 LV E/e MED 12.00 (<14) MV E Vmax 0.47 (0.4-1.3 m/s) MV E' lateral 0.035 (>0.1 m/s) MV A Vmax 0.65 (0.4-1.3 m/s) LV E/e LAT 13.30 (<14) MV E/A Ratio 0.70 MV E/E' medial 12.00 MV E/E' lateral 13.33 Aortic Valve LVOT Area 3.41 cm2 AoV Area Vmax 3.34 cm2 LVOT Vmax 1.22 m/s AoV Area/ BSA (Vmax) 1.62 cm2/m2 LVOT Mean Wan. 0.76 m/s HERNAN Mean Wan. 2.88 cm2 LVOT Peak Grad 5.9 mmHg HERNAN Mean Wan. Index 1.40 cm2/m2 LVOT Mean Grad 2.8 mmHg LVOT VTI 0.231 m LVOT Diam s 2.05 cm AoV Vmax 1.24 m/s Velocity Ratio 0.98 AoV Mean Wan. 0.90 m/s AoV Peak Grad 6.2 mmHg LVOT SV 78.87 mL AoV Mean Grad 3.6 mmHg AoV VTI 0.221 m AoV Area VTI 3.57 cm2 AoV Area/ BSA (VTI) 1.73 cm/m2 Mitral Valve MV DT 311 (160-240 msec) MV PHT 90 msec MV Area PHT 2.44 cm2 MV VTI 0.268 m MV Area VTI 2.95 (4.0-6.0 cm2) Pulmonary Valve PV Vmax 1.33 (0.5-1.5 m/s) RVOT Peak Gr. 4.89 mmHg PV Peak Grad 7.1 mmHg RVOT Mean Gr. 2.20 mmHg PV Mean Grad 3.6 mmHg RVOT VTI 0.190 m PV VTI 0.214 m RVOT Vmax 1.11 m/s
== END 2022-06-22 11:21 ==
LOC: DI 11:02
PROVIDERS: PCP Family Medicine; Visit Provider Internal Medicine Cardiovascular Disease
DX: I21.4 Non-ST elevation (NSTEMI) myocardial infarction (principal)
CPT/HCPCS: 93306

== ENCOUNTER 2022-08-11 01:18 | Outpatient (CLI) | payer OTHER, SELFPAY ==
--- NOTE | 2022-08-11 08:30 | DI.RAD_ITS ---
Exam(s) XR SHOULDER LT COMPLETE 2+V EXAM: XR SHOULDER LT COMPLETE 2+V CLINICAL HISTORY: l shoulder pain,M25.512. TECHNIQUE: 2D digital imaging was performed. COMPARISON: CR XR shoulder RT complete 2+V from 04/17/2018 FINDINGS: 3 views No evidence of acute fracture or dislocation of glenohumeral joint. Mild degenerative changes are noted. There is abnormal widening of the AC joint. This is probably p ostsurgical. There is diminution of the subacromial space laterally. No calcifications seen within the diminished subacromial space. Small degenerative cysts noted in the greater tuberosity on the la teral aspect of the humeral head. IMPRESSION: As above. If clinically indicated follow-up MRI can be performed to determine the amount of rotator cuff pathology here. DATA REPOSITORY: RADIATION DOSE DELIVERED:
== END 2022-08-11 01:38 ==
LOC: DI 01:18
PROVIDERS: PCP Family Medicine; Visit Provider Family Medicine
DX: G89.29 Other chronic pain (principal); M25.512 Pain in left shoulder; R93.7 Abnormal findings on diagnostic imaging of other parts of musculoskeletal system
CPT/HCPCS: 73030

== ENCOUNTER 2022-09-05 09:12 | Outpatient (CLI) | payer OTHER, SELFPAY ==
--- NOTE | 2022-09-05 09:00 | RT.EKG_ITS ---
APPROVED REPORT Exam: Resting ECG Reason for Exam: CAD Patient Location: O HR:65 bpm ECG Measurements Heart Rate 65 AXIS ID 163 P 37 QRSd 186 QRS -6 QT 504 T 144 QTc 525 Conclusion Sinus rhythm...normal P axis, V-rate 50- 99 Left bundle branch block...QRSd>120, broad/notched R
== END 2022-09-05 09:13 | disposition home or self-care (01) ==
LOC: DI.CARD 09:12
PROVIDERS: PCP Family Medicine; Visit Provider Internal Medicine Cardiovascular Disease
DX: I25.10 Atherosclerotic heart disease of native coronary artery without angina pectoris (principal); I44.7 Left bundle-branch block, unspecified
CPT/HCPCS: 93010

== ENCOUNTER 2022-09-14 01:43 | Outpatient (CLI) | payer OTHER, SELFPAY ==
--- NOTE | 2022-09-14 08:00 | DI.MAMMO_ITS ---
Exam(s) MAMMO SCREENING EXAM: MAMMO SCREENING CLINICAL HISTORY: screening,Z12.39 TECHNIQUE: Bilateral full field digital CC and MLO mammographic images were obtained with 3D tomosyn thesis and utilizing computer aided detection (CAD). COMPARISON: Available for comparison. FINDINGS: Masses/Architectural Distortion: None seen. Microcalcifications: No suspicious pleomorphic-type are seen. Skin Thickening/Nipple Retraction: None. IMPRESSION: 1. No significant interval change with no specific features of malignancy noted. 2. Unless there is more urgent need, screening mammography is recommended, as per [employer] guidelines. BI-RADS Category 1 - Negative Breast Density - Category B - Scattered areas of fibroglandular density Breast density category C or D implies that the patient has dense breast tissue. Dense breast tissue is very common and is not abnormal but dense breast tissue can make it harder to find cancer on a ma mmogram. Also, dense breast tissue may increase their breast cancer risk. This information about the result of the mammogram report was provided to the patient to raise their awareness. Use this report when you speak with the patient about their risks for breast cancer, which includes their family hist ory. At that time, you may recommend for more screening tests (Ultrasound or MRI) as they might be us eful based on their risk. A negative radiographic report should not delay biopsy if a dominant or clinically suspicious mass is present. Up to ten percent of cancers are not identified on mammography. A negative report may reinforce clinical impression. Adenosis and dense breasts may obscure an underlying neoplasm. False positive reports average 6 to 10%. Patient will receive a letter notifying them of these results.
== END 2022-09-14 02:03 ==
LOC: DI 01:43
PROVIDERS: PCP Family Medicine; Visit Provider Family Medicine
DX: Z12.31 Encounter for screening mammogram for malignant neoplasm of breast (principal)
CPT/HCPCS: 77063; 77067

== ENCOUNTER 2022-09-23 01:37 | Outpatient (CLI) | payer OTHER, SELFPAY ==
--- NOTE | 2022-09-23 07:45 | DI.DEXA_ITS ---
Exam(s) XR DEXA BONE DENSITY W/WO SHANIA EXAM: XR DEXA BONE DENSITY W/WO SHANIA CLINICAL HISTORY: SCREENING FOR OSTEOPOROSIS IN POSTMENOPAUSAL WOMAN,Z78.0 TECHNIQUE: COMPARISON: CR XR DEXA BONE DENSITY W/WO SHANIA from 03/28/2019 FINDINGS: Lateral Spine Image: Unremarkable. No compression deformities identified. Left hip: Total T-Score: -0.4. This compares to 0.1 on the prior examination. Total Z-Score: 0.8 T- and Z-scores: Within normal limits. Note is made of osteopenia in the femoral neck with a T-score of -2.0. Lumbar Spine: Total T-Score: -1.0. This is unchanged compared to the prior examination. Total Z-Score: 0.8 T- and Z-scores: Within normal limits. Findings of osteopenia in the L1, L2 and L3 vertebral bodies. IMPRESSION: No evidence of osteoporosis.
== END 2022-09-23 01:57 ==
LOC: DI 01:37
PROVIDERS: PCP Family Medicine; Visit Provider Family Medicine
DX: M85.88 Other specified disorders of bone density and structure, other site (principal); Z78.0 Asymptomatic menopausal state
CPT/HCPCS: 77080

== ENCOUNTER 2022-10-20 03:08 | Outpatient (CLI) | payer OTHER, SELFPAY ==
--- NOTE | 2022-10-20 | DI.MRI_ITS ---
Exam(s) MR UPPER JOINT LT WO EXAM: MR UPPER JOINT LT WO CLINICAL HISTORY: LT SHOULDER PAIN, M25.512. ? ROTATOR CUFF PATHOLOGY. TECHNIQUE: Multiplanar multisequence MRI was performed. COMPARISON: Plain films 11 August 2022 FINDINGS: BONES: There is no fracture or contusion pattern. JOINTS: There has been prior resection of the distal clavicle. There is spurring at the tip of the a cromion. The glenohumeral joint shows a small joint effusion. TENDONS: Supraspinatus: Full-thickness tear with retraction. Severe muscle atrophy. Infraspinatus: On full-thickness tear with retraction. Muscle atrophy. Subscapularis: Unremarkable. Teres Minor: Unremarkable. Biceps and Sharon: Unremarkable. GLENOID LABRUM: Unremarkable on this noncontrast examination. SOFT TISSUES: Unremarkable. OTHER: Large amount of fluid in subcoracoid region. Small amount of fluid in subacromial subdeltoid bursa. IMPRESSION: Full-thickness tear with retraction of the supraspinatus and infraspinatus tendons. Muscle atrophy. DATA REPOSITORY:
== END 2022-10-20 03:28 ==
LOC: DI 03:08
PROVIDERS: PCP Family Medicine; Visit Provider Orthopaedic Surgery
DX: M25.512 Pain in left shoulder (principal)
CPT/HCPCS: 73221

== ENCOUNTER 2022-11-03 10:24 | Day surgery (SDC) | payer OTHER, SELFPAY ==
--- NOTE | 2022-11-02 21:50 | W.PM.DSUDISC ---
Date of service: 11/03/22 Time of Service: 12:58 Discharge Plan Disposition Patient Disposition: Home Condition: Good Discharge Details Reason For Visit: Screening colonoscopy Attending Provider: Chapincito Westfall Primary Care Provider: Nan Simmons Home Meds and New Rx's Prescriptions: Continued fluticasone propionate 50 mcg/actuation spray,suspension 2 spray DEWAYNE DAILY PRN (Reason: nasal congestion) Qty: 16 12RF Rx Instructions: administer into each nostril Jardiance 25 mg tablet 25 mg PO QAM Qty: 90 5RF atorvastatin 80 mg tablet 80 mg PO DAILY Qty: 90 4RF bisoprolol fumarate 5 mg tablet 5 mg PO DAILY Qty: 90 6RF bupropion HCl 300 mg tablet extended release 24 hr 300 mg PO QAM Qty: 90 4RF isosorbide mononitrate 60 mg tablet extended release 24 hr 60 mg PO DAILY Qty: 90 5RF valsartan 40 mg tablet 40 mg PO DAILY Qty: 90 6RF calcium carbonate [Calcium 500] 500 MG tablet 500 mg PO DAILY Vitamin D3 4,000 UNIT capsule 4,000 unit PO DAILY loratadine 10 MG tablet 10 mg PO DAILY PRN (Reason: Allergy Symptoms) Qty: 90 Turmeric Root Extract [Turmeric] 538 MG capsule 538 mg PO DAILY aspirin 81 mg tablet,delayed release (DR/EC) 81 mg PO DAILY nitroglycerin 0.4 mg tablet, sublingual 0.4 mg sublingual Q5M PRN Patient Comments: Started by [facility] [place] on 09/01/20. aj Rx Instructions: do not exceed 3 doses per episode furosemide 20 mg tablet 20 mg PO DAILY Qty: 90 3RF potassium chloride 10 mEq tablet extended release 10 meq PO DAILY Qty: 90 3RF Discontinued polyethylene glycol 3350 17 gram/dose powder 238 g PO ONCE Qty: 238 0RF Rx Instructions: take per colonoscopy instructions bisacodyl [Dulcolax (bisacodyl)] 5 mg tablet,delayed release (DR/EC) 5 mg PO ONCE Qty: 4 0RF Rx Instructions: take per colonoscopy instructions Discharge Instructions Instructions: Diverticulosis (GEN), Diverticulosis Diet (GEN), Colorectal Polyps (GEN) Additional Instructions: Brianne, we were able to complete your colonoscopy today without much difficulty. You have extensive diverticulosis in the sigmoid area of your colon, as well as your descending colon. We have attached some information here regarding diverticulosis, diverticulitis (when they become inflamed or infected) and general management of diverticular disease. Additionally, I did find 3 polyps in your rectum. I removed these all completely. Once I have the results of the pathology report I will be in touch. 1. If tolerated, consume a soft, low fiber diet for 1-2 days. 2. Do not drive, drink alcohol, operate machinery, make critical decisions, or do activities that require coordination or balance for 24 hours. 3. Because air was put into your colon during the procedure, expelling air from your rectum (passing gas or farting) is normal. 4. You may not have a bowel movement for 1-3 days because of the colonoscopy prep. This is normal. 5. Go directly to the emergency room if you notice any of the following: Develop chills (warm to touch), or if you have a thermometer and your temperature is above 101 Difficulty breathing or difficultly swallowing Persistent vomiting Severe abdominal pain, other than gas cramps Severe chest pain Black, tarry stools Any bleeding ? exceeding one tablespoon 6. Call your physician if the site where your intravenous was started becomes red, swollen, painful, and warm to touch. 7. Your physician has reviewed your pre-procedure medications. Please continue to take those medications as previously ordered. You will be given specific information/education regarding any changes to your medications before leaving. Activity:: Activity as Tolerated Diet:: As Tolerated Discharge Orders Discharge Orders: Discharge Order (Routine); Ordered 11/02/22 Ordered By: Chapincito Westfall DS: Diagnosis Discharge Diagnosis (1) Screening for colon cancer: Status: Acute Asessment and Plan: Follow-up on polypectomy results
--- NOTE | 2022-11-02 21:52 | W.COLOREPORT ---
Date of service: 11/03/22 Time of Service: 13:00 Colonoscopy Report Date of procedure: 11/03/22 Pre-op diagnosis general: Screening colonoscopy Post-op diagnosis procedure note: other (Rectal polyps, diverticulosis) Procedure: Colonoscopy with polypectomy Surgeon: Chapincito Westfall Anesthesia Type: General:No Airway Estimated blood loss (mL): 10 Pathology: other (Polyps x3) Complications: None Disposition: same day Indications: Brianne is a 62-year-old woman presenting for screening colonoscopy Prep: Miralax/Dulcolax Procedure Start Time: 12:16 Procedure End Time: 12:40 Retraction Time: 10 Findings: Rectal polyps, extensive left-sided diverticulosis Procedure Description: After the induction of monitored anesthetic care, and with the patient in left lateral decubitus position, I began by performing an external anorectal exam.? Perineum and skin were normal, as was the anal verge.? There was no evidence of external hemorrhoids.? Next, I performed a digital rectal exam.? I did not appreciate any abnormal findings.? Next, I advanced a colonoscope into the rectal vault.? I performed retroflexion.? This was normal.? Using insufflation, I then advanced the colonoscope beyond the rectal folds and into the sigmoid colon before advancing towards the cecum.? The quality of the prep was excellent.? There is extensive sigmoid diverticulosis that extends into the descending colon. The scope was noted to be in the cecum by identification of the ileocecal valve and appendiceal orifice.? I then began withdrawing the colonoscope using repeated irrigation as necessary for full evaluation of the colonic mucosa. ?Once the scope was withdrawn to the level of the rectum, great care was taken to examine portions of the rectal folds. There were 3 rectal polyps. All were sessile. All were less than 0.25 cm. I removed these all with cold forceps polypectomy. There was minimal bleeding.? Finally, the scope was withdrawn and the patient was brought to the same-day surgery recovery unit as the anesthetic wore off. ?The findings and instructions were shared with the patient prior to discharge.
[2022-11-03 10:40] VITALS: BP 177/62; PULSE 61; RESP 18; TEMP 36.5; O2SAT 98
[2022-11-03] MEDS: Lactated Ringers 1,000 ML 80 ML IV (11:33)
--- NOTE | 2022-11-03 11:35 | ANES.PREOP_ITS ---
General Info Date of Service Date Performed: 11/03/22 Height: 5 ft 4 in Weight: 105.8 kg Body Mass Index (BMI): 40.0 Surgical Procedure: Operation Date: 11/03/22 12:35 Proposed Procedure Side Surgeon shayy Westfall MD Meds Allergies and Home Medications Allergies Allergy/AdvReac Type Severity Reaction Status Date / Time nickel Allergy Verified 11/03/22 11:05 zinc Allergy Skin Rash Verified 11/03/22 11:05 milk AdvReac Unknown Verified 11/03/22 11:05 IVORY SOAP Allergy Unknown RASH Uncoded 11/03/22 11:05 Metals Allergy Rash Uncoded 11/03/22 11:05 Home Medication Medication Instructions Recorded calcium carbonate 500 mg calcium 500 mg PO DAILY 09/29/15 (1,250 mg) tablet (Calcium 500) cholecalciferol (vitamin D3) 100 4,000 unit PO DAILY 09/29/15 mcg (4,000 unit) capsule (Vitamin D3) loratadine 10 mg tablet 10 mg PO DAILY PRN Allergy 07/12/16 Symptoms #90 tab-caps Turmeric Root Extract [Turmeric] 538 mg PO DAILY 12/04/17 aspirin 81 mg tablet,delayed 81 mg PO DAILY 09/03/20 release nitroglycerin 0.4 mg sublingual 0.4 mg sublingual Q5M PRN 09/03/20 tablet fluticasone propionate 50 2 spray intranasal DAILY PRN nasal 05/04/21 mcg/actuation nasal congestion #16 grams spray,suspension atorvastatin 80 mg tablet 80 mg PO DAILY #90 tabs 04/19/22 bisoprolol fumarate 5 mg tablet 5 mg PO DAILY #90 tabs 04/19/22 bupropion HCl 300 mg 24 hr tablet, 300 mg PO QAM #90 tabs 04/19/22 extended release isosorbide mononitrate 60 mg 60 mg PO DAILY #90 tabs 04/19/22 tablet,extended release 24 hr valsartan 40 mg tablet 40 mg PO DAILY #90 tabs 04/19/22 furosemide 20 mg tablet 20 mg PO DAILY #90 tabs 04/25/22 potassium chloride 10 mEq 10 meq PO DAILY #90 tabs 04/25/22 tablet,extended release empagliflozin 25 mg tablet 25 mg PO QAM #90 tabs 08/23/22 (Jardiance) Current Visit Medications: Current Medications Generic Name Dose Route Start Last Admin Trade Name Freq PRN Reason Stop Dose Admin Hyoscyamine Sulfate 0.125 mg 11/02/22 21:53 Hyoscyamine 0.125 Mg Sl/Oral/Chew SL DIRECTED PRN Ringer's Solution 1,000 mls @ 80 mls/hr 11/03/22 06:00 11/03/22 11:33 IV 12/02/22 23:59 80 mls/hr INFUSION ARNULFO Administration IV Miscellaneous Supplies 1 each 11/03/22 06:00 Iv Access IV 12/02/22 23:59 DIRECTED ARNULFO Ondansetron HCl 4 mg 11/02/22 21:53 Ondansetron 4 Mg/2 Ml Vial IVP Q4H PRN PRN Nausea / Vomiting Sodium Chloride 0 ml 11/03/22 06:00 Normal Saline Flush 10 Ml Syr IV 12/02/22 23:59 PRN PRN Sodium Chloride 0 ml 11/03/22 06:00 Normal Saline 10 Ml Vial IJ 12/02/22 23:59 DIRECTED PRN Sterile Water 0 ml 11/03/22 06:00 Water,Injection,Sterile 10 Ml Vial IJ 12/02/22 23:59 DIRECTED PRN PFSH Active Problems Active Problems: Problem Status Onset Code Screening for colon cancer Z12.11 Diverticulosis of colon without diverticulitis K57.30 Generalized osteoarthrosis M15.9 Gastroesophageal reflux disease 12/03/08 K21.9 Hyperlipidemia E78.5 Adhesive capsulitis of right shoulder M75.01 Ischemic cardiomyopathy 08/23/20 I25.5 Sleep apnea G47.30 Smoker F17.200 Atherosclerotic cardiovascular disease I25.10 GERD (gastroesophageal reflux disease) K21.9 Renal insufficiency N28.9 Depression F32.A Annual physical exam Z00.00 Chronic left shoulder pain M25.512, G89.29 Encounter for screening colonoscopy Z12.11 Medical History Medical History Acromioclavicular joint arthritis Actinic keratosis (09/29/15) Allergic rhinitis Cataract (10/13/14) Extraction of cataracts of both eyes done in 2014 Chronic renal disease Coronary artery disease COVID-19 Onset-06/15/22 VACCINATED Depressive disorder Discharge planning issues DVT prophylaxis Generalized osteoarthritis Jaw pain Non-ST elevation CA (NSTEMI) Post concussion syndrome (01/22/18) Stomatitis Torn rotator cuff Ventricular tachycardia Surgical History Surgical History Abdominal hysterectomy (~08/2009) Extraction of cataract 10/30/14; RIGHT ~2014; Left H/O arthroscopy of shoulder History of arthroscopic knee surgery History of arthroscopy of knee History of cardiac catheterization History of cataract removal with insertion of prosthetic lens History of colonoscopy History of hysterectomy History of tonsillectomy S/P shoulder surgery (~08/15/18) 08/15/18; DR. ALVARADO; EXCISION OF LEFT DISTAL CLAVICLE-kb SKIN EXCISION removal of birthmark Status post abdominal hysterectomy Status post arthroscopy of right knee ~2008 Status post right rotator cuff repair (09/10/18) Full thickness RTC tear repair and distal clavicle excision Dr. Alvarado Status post tonsillectomy and adenoidectomy Stented coronary artery Tonsillectomy and adenoidectomy (~1959) Tobacco Smoking/Tobacco Use Status: Current-Occasional Tobacco Type: cigarettes Passive smoking exposure: Yes Second hand exposure: Yes Alcohol Alcohol Intake: current Alcohol intake frequency: a few times a week Alcohol type: hard liquor Substance Use Substance use: Occasionally Substance use type: marijuana Counseling provided: none Details: CBD LOTION Vital Signs and Lab Results Vital Signs Most Recent Vital Signs in EMR: Most Recent Vital Signs Temp Pulse Resp BP Pulse Ox 36.5 C 61 18 177/62 H 98 11/03/22 10:40 11/03/22 10:40 11/03/22 10:40 11/03/22 10:40 11/03/22 10:40 Lab Results Blood Type / Crossmatch: No Data to Display Complete Blood Count: No Data to Display Complete Metabolic Panel: No Data to Display Liver Function Panel: No Data to Display Coagulation Panel: No Data to Display Cardiac Panel: No Data to Display Arterial Blood Gas: No Data to Display Venous Blood Gas: No Data to Display Pancreas Panel: No Data to Display Thyroid Panel: No Data to Display Infectious Disease: No Data to Display Blood Cultures: No Data to Display Toxicology Panel: No Data to Display Imaging and Studies Imaging and Studies Study information below may be from another EMR and interpreted by another provider. Please see original notes in EMR for more complete details. EKG Summary: 09/22. Conclusion Sinus rhythm...normal P axis, V-rate 50- 99 Left bundle branch block...QRSd>120, broad/notched R Stress Test Summary: 12/18 Impressions: Normal study after maximal exercise. Summary: 1. Stress ECG conclusions: The stress ECG is negative. Cardenas treadmill score: 7. This score predicts a low risk of cardiac events. 2. Stress: The target heart rate was achieved. The heart rate response to stress is normal. There is a normal resting blood pressure with an appropriate response to stress. The patient experienced no chest pain during stress. Exercise capacity is normal for age. Echocardiogram Summary: 06/23 Conclusion Mild concentric left ventricular hypertrophy. Normal left ventricular chamber size. Estimated ejection fraction is 45%. There is a septal wall motion abnormality Normal right ventricular size and systolic function Both atria are normal in size Aortic valve is sclerotic and trileaflet without stenosis or regurgitation Mild mitral annular calcification. Trace mitral regurgitation Right ventricular systolic pressure could not be estimated Mildly dilated ascending aorta measuring 3.47 cm Wall motion Anesthesia Assessment and Plan Anesthesia History Personal History: No History of Anesthesia Complications Family History: No Family History of Anesthesia Complications Exercise Tolerance Exercise Tolerance: Metabolic Equivalents<4 Pertinent Negatives Pertinent Negatives: No Symptoms of GERD Cardiac & Pulmonary Exam Cardiac Exam: Normal S1/S2 Heart Sounds Pulmonary Exam: Clear Bilateral Breath Sounds Implantable Cardiac Device Does patient have a Pacemaker or an ICD?: No Airway Exam Known Difficult Airway: No Mallampati Class: 3 Mouth Opening: Normal (> 3cm) Thyromental Distance: Greater than 3 cm Neck Range of Motion: Full ROM Neck Circumference: Normal Teeth Condition: Generalized Poor Dentition, Removable Dentures/Plates Upper and Removable Dentures/Plates Lower ASA Classification ASA Score: ASA 3 Emergency Case?: No NPO Status NPO Status: NPO Clears >2 hours, Solids >8 hours Anesthesia Plan Resuscitation Status: Full Code Anesthesia Technique: General Anesthesia Airway Planned: Natural Airway Monitors Used: Standard Monitors Preoperative Comments:: 09/05/20 Medical Decision Making 60-year-old female history of coronary artery disease. She was seen in the emergency department on August 23 where she had chest pain, fluid overload, new left bundle branch block pattern on EKG and was transferred to [facility]. She underwent stent placement to left circumflex on August 31 and was discharged home on September 01. She states she has been doing well, taking her medications as prescribed, and at 11 AM this morning developed 4 out of 10 anterior chest pressure similar to previous. Patient states she took her morning medications at approximately 11:30 AM. Stable current cardiac 2022. Will keep fluid
[2022-11-03 12:08] VITALS: BMI 40.0
--- NOTE | 2022-11-03 12:20 | BOWEL_PTH ---
PATIENT: Brianne Duffy LOC: [facility] U#:[id number] AGE/SX: 62/F ROOM: RE11/03/[address]: Chapincito Westfall MD : [id number] BED: DIS: 11/03/2022 SPEC #: [id number] RECD: 11/03/22 13:28 STATUS: JEVON REAditi #: [id number] WESLEY: 11/03/22 12:[address]: Chapincito Westfall DEPT: Surgical Specimen RECD BY: Antoinette Salas ENTERED: 11/03/22 13:29 SP TYPE: Bowel OTHR DR: Nan Simmons MD, DC Tissues: 1 - BIOPSY BOWEL Procedures: GROSS AND MICRO LEVEL 4 Comments: [id number]
[2022-11-03 12:48] VITALS: BP 108/51; PULSE 58; RESP 18; TEMP 36.2; O2SAT 95
--- NOTE | 2022-11-03 13:02 | W.ANESPOSTOP ---
Postoperative Evaluation Date, Time and Location Date Performed: 11/03/22 Time Performed: 13:02 Patient Location: Day Surgery Unit Vital Signs Most Recent Imported Vital Signs: Most Recent Vital Signs Temp Pulse Resp BP Pulse Ox 36.2 C L 58 L 18 108/51 L 95 11/03/22 12:48 11/03/22 12:48 11/03/22 12:48 11/03/22 12:48 11/03/22 12:48 Pain Score Most Recent Pain Score: Most Recent Pain Score Pain Level 0 11/03/22 12:48 Assessment Mental Status: Awake (Alert & Oriented to Patient Baseline) Airway and Respiratory Function: Patent airway with normal (patient baseline) respiratory exam Cardiovascular Function: Hemodynamically Stable Hydration Status: Adequately Hydrated Nausea & Vomiting: No Nausea or Vomiting Pain: Pt. Denies Any Pain Peripheral Nerve Block: Patient did not receive a nerve block
[2022-11-03 13:20] VITALS: BP 133/59; PULSE 59; RESP 17; TEMP 36.5; O2SAT 97
== END 2022-11-03 13:39 | disposition home or self-care (01) ==
PROVIDERS: PCP Family Medicine; Visit Provider Surgery
PROC: 0DJD8ZZ Inspection of Lower Intestinal Tract, Via Natural or Artificial Opening Endoscopic (ICD-10-PCS; CPT 45378; principal; 2022-11-03 12:30)
DX: Z12.11 Encounter for screening for malignant neoplasm of colon (principal); K62.1 Rectal polyp; K57.30 Diverticulosis of large intestine without perforation or abscess without bleeding
CPT/HCPCS: 45380; 88305

== ENCOUNTER 2023-03-20 08:21 | Outpatient (CLI) | payer OTHER, SELFPAY ==
[2023-03-20 13:02] LABS: ALT 17 U/L (14-59); AST 18 U/L (15-37); Albumin 3.7 g/dL (3.4-5.0); Alkaline Phosphatase 147 U/L (46-116); Anion Gap 7.9 mmol/L (3-11); BUN 25 mg/dL (7-18); Bilirubin, Total 0.7 mg/dL (0.2-1.0); CO2 30.1 mmol/L (21.0-32.0); CREATININE 2.1 mg/dL (0.55-1.02); Calcium 10.1 mg/dL (8.5-10.1); Chloride 103 mmol/L (98-107); Estimated GFR 25.67 (mL/min/1.73m2); Glucose 107 mg/dL (74-106); Potassium 4.4 mmol/L (3.5-5.1); Sodium 141 mmol/L (136-145); Total Protein 7.4 g/dL (6.4-8.2)
[2023-03-20 13:19] LABS: FREE T4 1.37 ng/dL (0.76-1.46)
== END 2023-03-20 08:22 | disposition home or self-care (01) ==
LOC: LOS 08:21
PROVIDERS: PCP Family Medicine; Referring Provider Family Medicine; Visit Provider Family Medicine
DX: I25.5 Ischemic cardiomyopathy (principal); N28.9 Disorder of kidney and ureter, unspecified; I10 Essential (primary) hypertension
CPT/HCPCS: 36415; 80053; 84439; 84443

== ENCOUNTER 2023-08-31 05:28 | Outpatient (CLI) | payer OTHER, SELFPAY ==
[2023-08-31 12:43] LABS: Hemoglobin A1C 5.5 % (<5.7)
[2023-08-31 12:52] LABS: ALT 15 U/L (14-59); AST 16 U/L (15-37); Albumin 3.8 g/dL (3.4-5.0); Alkaline Phosphatase 134 U/L (46-116); Anion Gap 10.2 mmol/L (3-11); BUN 26 mg/dL (7-18); CO2 27.8 mmol/L (21.0-32.0); CREATININE 2.1 mg/dL (0.55-1.02); Calcium 10.2 mg/dL (8.5-10.1); Chloride 101 mmol/L (98-107); Estimated GFR 25.67 (mL/min/1.73m2); Glucose 102 mg/dL (74-106); Potassium 4.3 mmol/L (3.5-5.1); Sodium 139 mmol/L (136-145); TSH (W/Ref FT4) 3.14 uIU/mL (0.36-3.74); Total Protein 7.3 g/dL (6.4-8.2)
== END 2023-08-31 05:29 | disposition home or self-care (01) ==
LOC: LBO 05:28
PROVIDERS: PCP Family Medicine; Visit Provider Family Medicine
DX: E03.9 Hypothyroidism, unspecified (principal); I10 Essential (primary) hypertension; E11.9 Type 2 diabetes mellitus without complications
CPT/HCPCS: 36415; 80053; 83036; 84443

== ENCOUNTER → 2023-09-15 01:43 | Outpatient (CLI) | payer OTHER, SELFPAY ==
--- NOTE | 2023-09-15 06:30 | DI.CTLCSR_ITS ---
Exam(s) CT CHEST LUNG CANCER SCREEN EXAM: CT CHEST LUNG CANCER SCREEN CLINICAL HISTORY: Screening for lung cancer,CURRENT SMOKER, F17.210. TECHNIQUE: Imaging Protocol: Low Dose Technique CONTRAST MATERIAL: None COMPARISON: CT CT CHEST LUNG CANCER SCREEN from 01/09/2020 FINDINGS: CHEST: LUNGS: There is a tiny calcified granuloma in the right lower lobe, unchanged from CT scan of January 19. There are no new ominous pulmonary nodules. There are no confluent infiltrates. No pleural effu sions. MEDIASTINUM: There is no obvious hilar nor mediastinal adenopathy. CARDIAC: Heart size is normal. There is no pericardial effusion.Caliber of the thoracic aorta is wit hin normal limits. OTHER: No obvious adrenal masses. Partially included right kidney now appears atrophic. Partially i ncluded left kidney does not appear atrophic. OSSEOUS: No significant osseous lesions.Bilateral shoulder prostheses noted.. IMPRESSION: 1. No new significant pulmonary nodules. 2. Partially included right kidney appears atrophic. 3. Lung RADS Cat 1 - Negative: No nodules and definitely benign nodules Lung-RADS 1.0 CATEGORIES: Category 0 - Prior chest CT exam(s) being located for comparison. Category 1 - Annual screening in 12 months. No nodules or definitely benign nodules. Category 2 - Annual screening in 12 months. Benign appearance. Nodules with low likelihood of becomin g active cancer. Category 3 - 6-month follow-up. Probably benign. Short-term follow-up suggested. Nodules with low lik elihood of becoming active cancer. Category 4A - 3-month follow-up and CT/PET if >8 mm in size. Suspicious finding. Findings which requi re additional testing. Category 4B - Findings which require additional testing and tissue sampling. Category 4X - Category 3 or 4 nodules with additional features or imaging findings that increases the suspicion of malignancy. Modifier S- Potentially clinically significant findings (non lung cancer) RADIATION DOSE DELIVERED: Total DLP DATA REPOSITORY: All CT scans at this facility are submitted to the National Radiology Data Registry (NRDR) Dose Index Registry (DIR) with the [employer] ([employer]). RADIATION OPTIMIZATION: All CT scans at this facility use at least one of these dose optimization te chniques: automated exposure control; mA and/or kV adjustment per patient size (includes targeted exa ms where dose is matched to clinical indication); or iterative reconstruction.
--- NOTE | 2023-09-15 07:55 | DI.MAMMO_ITS ---
Exam(s) MAMMO SCREENING EXAM: MAMMO SCREENING CLINICAL HISTORY: screening,Z12.39 TECHNIQUE: Mammograms were interpreted according to the usual protocol including computer analysis w [employer] CAD system, tomosynthesis and C-view imaging. COMPARISON: 2015 through 2022 FINDINGS: The breasts are composed of mainly fatty density , Breast Density category A. No suspicious masses or suspicious microcalcifications are seen. No skin thickening or abnormal axillary lymph nodes are seen. There has been no significant change from prior exams. IMPRESSION: BI-RADS Category 1, Negative mammogram Yearly screening mammography is recommended. Breast Density - Category A, fatty density. A negative radiographic report should not delay biopsy if a dominant or clinically suspicious mass is present. Up to ten percent of cancers are not identified on mammography. A negative report may reinforce clinical impression. Adenosis and dense breasts may obscure an underlying neoplasm. False positive reports average 6 to 10%. Patient will receive a letter notifying them of these results.
== END ==
PROVIDERS: PCP Family Medicine; Visit Provider Family Medicine
DX: Z12.31 Encounter for screening mammogram for malignant neoplasm of breast (principal); F17.210 Nicotine dependence, cigarettes, uncomplicated; Z12.2 Encounter for screening for malignant neoplasm of respiratory organs; R91.8 Other nonspecific abnormal finding of lung field
CPT/HCPCS: 71271; 77063; 77067

== ENCOUNTER 2024-04-03 02:23 | Outpatient (CLI) | payer MEDICARE, SELFPAY ==
[2024-04-03 16:48] LABS: ALT 23 U/L (14-59); AST 20 U/L (15-37); Albumin 3.9 g/dL (3.4-5.0); Alkaline Phosphatase 163 U/L (46-116); Anion Gap 9.9 mmol/L (3-11); BUN 37 mg/dL (7-18); Bilirubin, Total 0.84 mg/dL (0.2-1.0); CO2 27.1 mmol/L (21.0-32.0); CREATININE 2.4 mg/dL (0.55-1.02); Chloride 102 mmol/L (98-107); Estimated GFR 21.73 (mL/min/1.73m2); Glucose 93 mg/dL (74-106); PHOSPHORUS 3.7 mg/dL (2.6-4.7); Potassium 4.6 mmol/L (3.5-5.1); Sodium 139 mmol/L (136-145); Total Protein 6.9 g/dL (6.4-8.2)
[2024-04-04 11:20] LABS: Parathyroid Hormone,Intact 67 pg/mL (19-88)
== END 2024-04-03 02:24 | disposition home or self-care (01) ==
PROVIDERS: PCP Family Medicine; Visit Provider Family Medicine
DX: I10 Essential (primary) hypertension (principal); N28.9 Disorder of kidney and ureter, unspecified
CPT/HCPCS: 36415; 80053; 83970; 84100

== ENCOUNTER 2024-09-04 03:34 | Outpatient (CLI) | payer MEDICARE, SELFPAY ==
[2024-09-04 13:53] LABS: ALT 21 U/L (14-59); AST 18 U/L (15-37); Albumin 3.6 g/dL (3.4-5.0); Alkaline Phosphatase 130 U/L (46-116); Anion Gap 6.6 mmol/L (3-11); BUN 23 mg/dL (7-18); Bilirubin, Total 0.69 mg/dL (0.2-1.0); CO2 30.4 mmol/L (21.0-32.0); CREATININE 2.2 mg/dL (0.55-1.02); Calcium 9.6 mg/dL (8.5-10.1); Calculated LDL 94 mg/dL (<100); Chloride 108 mmol/L (98-107); Cholesterol 213 mg/dL (<200); Estimated GFR 24.12 (mL/min/1.73m2); Glucose 99 mg/dL (74-106); HDL Cholesterol 71 mg/dL (>or=50); Potassium 4.3 mmol/L (3.5-5.1); Sodium 145 mmol/L (136-145); Total Protein 6.8 g/dL (6.4-8.2); Triglyceride 241 mg/dL (<150)
== END 2024-09-04 03:35 | disposition home or self-care (01) ==
LOC: LBO 03:35
PROVIDERS: PCP Family Medicine; Visit Provider Family Medicine
DX: I10 Essential (primary) hypertension (principal)
CPT/HCPCS: 36415; 80053; 80061

== ENCOUNTER 2025-02-05 01:47 | Outpatient (CLI) | payer MEDICARE, SELFPAY ==
--- NOTE | 2025-02-05 08:00 | DI.RAD_ITS ---
Exam(s) XR LUMBAR SPINE COMPLETE EXAM: XR LUMBAR SPINE COMPLETE CLINICAL HISTORY: low back and lt hip pain,m54.50,m25.552. TECHNIQUE: 2D digital imaging was performed. COMPARISON: CR XR DEXA BONE DENSITY W/WO SHANIA from 09/23/[address] CHEST LUNG CANCER SCREEN from 09/15/2023 FINDINGS: Five views No evidence of fracture. There is partial sacralization of the L5 segment. There is mild degenerative anterolisthesis of L4 upon L5. There is preserved disc height at this level. There is moderate disc space narrowing at L3-4 level. Mild narrowing at L 2-3 and L1-2 levels. Sacroiliac joints appear unremarkable. No scoliosis. Incidentally noted is a round calcific density measuring 10 mm to the right of center at the L1 level. This may be an undigested pill in the pyloric region of the stomach. Cannot exclude possible gallstone. Cannot exclude calculus in the right renal pelvis. IMPRESSION: Lumbar spine degenerative changes as above. Other incidental finding as above. DATA REPOSITORY: RADIATION DOSE DELIVERED:
--- NOTE | 2025-02-05 08:00 | DI.RAD_ITS ---
Exam(s) XR HIP LT COMPLETE AP PELVIS EXAM: XR HIP LT COMPLETE AP PELVIS CLINICAL HISTORY: l hip pain.m25.552. TECHNIQUE: 2D digital imaging was performed. COMPARISON: No exams were available for comparison FINDINGS: Two views No evidence of pelvic nor hip fractures. No hip joint space narrowing nor osteophytes. Calcific density in the left hip adjacent to the greater trochanter may be calcific tendinitis-bursitis. No significant osseous lesions in the pelvis and hips. IMPRESSION: As above DATA REPOSITORY: RADIATION DOSE DELIVERED:
== END 2025-02-05 02:07 ==
LOC: DI 01:47
PROVIDERS: PCP Family Medicine; Visit Provider Family Medicine
DX: M54.50 Low back pain, unspecified (principal); M25.552 Pain in left hip
CPT/HCPCS: 72110; 73502